=== PATIENT | female | born 1940 | race Caucasian/White ===

== ENCOUNTER → 2016-08-01 | Outpatient (CLI) | payer MEDICARE ==
--- NOTE | 2016-08-01 12:15 | XR ---
EXAMINATION TYPE: XR chest 2V DATE OF EXAM: 08/01/2016 12:08 PM HISTORY: I48.91 Unspecified atrial fibrillation. REFERENCE: Previous study dated 04/08/2015. FINDINGS: The right shoulder arthroplasties in place. The lungs are clear. Pleural spaces are clear. Heart size is normal. IMPRESSION: NO ACUTE INTRATHORACIC ABNORMALITY.
== END | disposition home or self-care (01) ==
LOC: RADXRMAIN 11:48
PROVIDERS: ATTEND Family Medicine
DX: I48.91 Unspecified atrial fibrillation (principal)
CPT/HCPCS: 71020

== ENCOUNTER → 2016-09-08 | Outpatient (CLI) | payer MEDICARE ==
--- NOTE | 2016-09-14 10:49 | P.ARTDOP ---
Arterial Doppler LOWER EXTREMITY ARTERIAL DOPPLER: DATE OF SERVICE: 09/18/2016 Reason for study: Bilateral thigh claudication. And bilateral toe discoloration Doppler waveforms: Multiphasic throughout except at the digital level. Pulse volume recording: Blunted digital waveforms throughout. Pressure gradients: Only at the toe level. Ankle-brachial indices: Greater than 1 bilaterally. Toe pressures: Not obtainable on the right, 50 on the left Impression: No proximal obstructive process seen. Toe plethysmography and waveforms suggestive of either severe vasospastic phenomenon, severe distal disease, or microembolic phenomenon. Clinical correlation recommended..
== END | disposition home or self-care (01) ==
LOC: RADUSWWP 10:18
PROVIDERS: ATTEND Family Medicine
DX: D47.3 Essential (hemorrhagic) thrombocythemia (principal); I70.213 Atherosclerosis of native arteries of extremities with intermittent claudication, bilateral legs
CPT/HCPCS: 93923

== ENCOUNTER → 2016-10-26 | Outpatient (CLI) | payer MEDICARE ==
--- NOTE | 2016-10-27 09:45 | MM ---
Reason for exam: screening (asymptomatic). Last mammogram was performed 1 year and 1 month ago. History: Patient is postmenopausal. Taking estrogen for 26 years beginning at age 44. Physical Findings: A clinical breast exam by your physician is recommended on an annual basis and results should be correlated with mammographic findings. MG 3D Screening Mammo W/Cad Bilateral CC and MLO view(s) were taken. Prior study comparison: September 23, 2015, bilateral MG screening mammo w CAD. August 05, 2014, left breast MG work up mamm w CAD LT. There are scattered fibroglandular densities. Finding: There are typically benign round calcifications in both breasts. There is a chronic nodularity in the right breast. There is no discrete abnormality. ASSESSMENT: Benign, BI-RAD 2 RECOMMENDATION: Routine screening mammogram of both breasts in 1 year.
== END | disposition home or self-care (01) ==
LOC: RADMAMWWP 13:01
PROVIDERS: ATTEND Family Medicine
DX: Z12.31 Encounter for screening mammogram for malignant neoplasm of breast (principal)
CPT/HCPCS: 77063; G0202

== ENCOUNTER → 2016-12-31 | Outpatient (CLI) | payer MEDICARE ==
--- NOTE | 2017-01-02 00:52 | MR ---
EXAMINATION TYPE: MR lumbar spine wo con DATE OF EXAM: 12/31/2016 COMPARISON: NONE HISTORY: Back pain CONTRAST: 0 mL intravenous Gadavist. TECHNIQUE: Multiplanar, multisequence images of the lumbar spine were acquired. FINDINGS: The lumbar vertebra have normal alignment. There is narrowing of disc spaces throughout the lumbar sp ine and more noticeable at L2-3 and L4-5. There is facet arthropathy and some narrowing of the neural foramina bilaterally at L4-5 and L5-S1. There are small posterior disc herniations at L3-4 L4-5 L5-S 1. There is significant ligamentum flavum thickening at L4-5 on the right side more than the left. Th ere is mild lateral recess stenosis at L4-5. There is no lumbar paraspinal mass. The posterior elemen ts are intact. I see no focal bone destruction. There is no compression fracture. IMPRESSION: 1. No fracture. Multilevel spondylosis. Lateral recess stenosis at L4-5. Neural foraminal bilateral s tenosis at L4-5 and L5-S1. No acute bony abnormality. Relatively small multilevel posterior lumbar di sc herniation.
== END | disposition home or self-care (01) ==
LOC: RADMRIMAIN 12:28
PROVIDERS: ATTEND Family Medicine
DX: M48.06 Spinal stenosis, lumbar region (principal); M99.73 Connective tissue and disc stenosis of intervertebral foramina of lumbar region; M51.16 Intervertebral disc disorders with radiculopathy, lumbar region; M47.26 Other spondylosis with radiculopathy, lumbar region
CPT/HCPCS: 72148

== ENCOUNTER → 2017-08-17 | Outpatient (CLI) | payer MEDICARE ==
[2017-08-17 13:50] LABS: Blood Urea Nitrogen 21 mg/dL (7-17)
--- NOTE | 2017-08-17 15:27 | CT ---
EXAMINATION TYPE: CT brain w con DATE OF EXAM: 08/17/2017 COMPARISON: NONE HISTORY: Dizziness. CT DLP: 1118.04 mGycm Automated exposure control for dose reduction was used. CONTRAST: CT scan of the head is performed with IV Contrast, patient injected with 100 mL of Isovue M300. FINDINGS: There is no abnormal enhancing mass or midline shift identified. There is a prominent cisterna magna. No enhancing mass. No mass effect. Mild to moderate generalized degenerative change with low-attenuation the white matter which is nonsp ecific but most typical remote microvascular ischemia. IMPRESSION: Degenerative and nonspecific white matter changes most typical remote microvascular ischemia. Slightl y greater central component occasionally be associated with normal pressure hydrocephalus. Correlate clinically.
--- NOTE | 2017-08-17 15:41 | CT ---
EXAMINATION TYPE: CT abdomen pelvis w con DATE OF EXAM: 08/17/2017 HISTORY: Left sided abdominal pain. CT DLP: 1315.32mGycm Automated Exposure Control for Dose Reduction was Utilized. CONTRAST: CT scan of the abdomen and pelvis is performed with IV Contrast, patient injected with 100 mL of Isov ue M300. COMPARISON: 12/30/2014. FINDINGS: LUNG BASES: Pleural parenchymal scarring is seen at the left lung base. LIVER/GB: The liver enhances homogeneously other than a 1 cm hepatic cyst on series 7 image 9. No int rahepatic biliary ductal dilatation. Gallbladder surgically absent. Calcification of the mesentery an terolateral to the hepatic parenchyma is unchanged from the prior of 12/30/2014. There is slightly lob ular contour of the inferior margin of the liver such as on series 7 images 30 through 35. PANCREAS: No significant abnormality is seen. No ductal dilatation. SPLEEN: No significant abnormality is seen. No splenomegaly. ADRENALS: No significant abnormality is seen. No nodularity or thickening. KIDNEYS: Kidneys enhance and excrete symmetrically. No hydronephrosis. BOWEL: Appendix is not clearly visualized although there are no right lower quadrant fat stranding ch anges. Terminal ileum is unremarkable without thickening. Moderate amount retained colonic stool is s een although there is no bowel dilatation. Loop of small bowel within the left mid abdomen displays f ocal bowel wall thickening of up to 1 cm on coronal series 9 image 42 colonic diverticulosis of the s igmoid colon without pericolonic fat stranding is noted. UTERUS/ADNEXA: Uterus appears surgically absent or significantly atrophied. LYMPH NODES: No greater than 1cm abdominal or pelvic lymph nodes are appreciated. OSSEOUS STRUCTURES: Mild multilevel degenerative change of the visualized spine is seen area OTHER: Extensive calcific and noncalcific atheromatous plaquing is seen of the abdominal aorta and it s branches. Abdominal aorta is of normal course and caliber. IMPRESSION: 1. Focal bowel wall thickening of a small bowel loop in the left mid abdomen extending into the left lower quadrant suggestive of inflammatory or infectious enteritis. No adjacent fluid collection to farmer ggest abscess. 2. Colonic diverticulosis without evidence of diverticulitis. 3. Slightly lobular contour the inferior hepatic margin. Correlate with serum laboratory values to un derlying hepatocellular disease.
== END | disposition home or self-care (01) ==
LOC: RADCTMAIN 13:10
PROVIDERS: ATTEND Family Medicine
DX: K57.30 Diverticulosis of large intestine without perforation or abscess without bleeding (principal); R90.89 Other abnormal findings on diagnostic imaging of central nervous system; G93.89 Other specified disorders of brain; K63.89 Other specified diseases of intestine; Z86.69 Personal history of other diseases of the nervous system and sense organs
CPT/HCPCS: 82565; 84520; 70460; 74177; 36415; Q9967

== ENCOUNTER → 2019-04-25 | Outpatient (CLI) | payer MEDICARE ==
--- NOTE | 2019-04-25 16:27 | XR ---
EXAMINATION TYPE: XR chest 2V DATE OF EXAM: 04/25/2019 COMPARISON: 08/01/2016 TECHNIQUE: PA and lateral views submitted. HISTORY: Dizziness FINDINGS: The lungs are clear and there is no pneumothorax, pleural effusion, or focal pneumonia. Hypertrophi c change of the spine. Postsurgical change right shoulder. No overt failure. Mild hyperinflation. Lit gical clips in the abdomen. IMPRESSION: 1. No acute process.
--- NOTE | 2019-04-25 16:44 | US ---
EXAMINATION TYPE: US carotid duplex BILAT DATE OF EXAM: 04/25/2019 COMPARISON: Carotid ultrasound December 04, 2015 CLINICAL HISTORY: R42 DIZZiNESS. EXAM MEASUREMENTS: RIGHT: Peak Systolic Velocity (PSV) cm/sec ----- Right CCA: 78.2 ----- Right ICA: 81.0 ----- Right ECA: 75.6 ICA/CCA ratio: 1.03 RIGHT: End Diastole cm/sec ----- Right CCA: 20.5 ----- Right ICA: 27.8 ----- Right ECA: 7.9 LEFT: Peak Systolic Velocity (PSV) cm/sec ----- Left CCA: 74.8 ----- Left ICA: 80.6 ----- Left ECA: 73.4 ICA/CCA ratio: 1.07 LEFT: End Diastole cm/sec ----- Left CCA: 20.6 ----- Left ICA: 28.9 ----- Left ECA: 5.4 VERTEBRALS (direction of flow): Right Vertebral: Antegrade Left Vertebral: Antegrade Rhythm: Normal No significant velocity elevations.Minimal plaque. IMPRESSION: No hemodynamically significant stenosis of either internal carotid artery. No significan t change from prior. Criteria for Assigning % of Stenosis / Diameter reduction (Estimation based on the indirect measurements of the internal carotid artery velocities (ICA PSV). 1. Normal (no stenosis)=ICA PSV < 125 cm/s: ratio < 2.0: ICA EDV<40 cm/s. 2. Less than 50% stenosis=ICA PSV < 125 cm/s: ratio < 2.0: ICA EDV<40 cm/s. 3. 50 to 69% stenosis=ICA PSV of 125 to 230 cm/s: ration 2.0 ? 4.0: ICA EDV 40-100 cm/s. 4. Greater than 70% stenosis to near occlusion= ICA PSV > 230 cm/s: ratio > 4.0: ICA EDV > 100 cm/s. 5. Near occlusion= ICA PSV velocities may be low or undetectable: variable ratio and ICA EDV. 6. Total occlusion=unable to detect flow.
== END | disposition home or self-care (01) ==
LOC: RADUSWWP 15:31
PROVIDERS: ATTEND Family Medicine
DX: R42 Dizziness and giddiness (principal); F17.210 Nicotine dependence, cigarettes, uncomplicated; Z88.1 Allergy status to other antibiotic agents; Z88.2 Allergy status to sulfonamides; Z88.8 Allergy status to other drugs, medicaments and biological substances
CPT/HCPCS: 71046; 93880

== ENCOUNTER → 2019-04-29 | Outpatient (CLI) | payer MEDICARE ==
[2019-04-29 11:42] LABS: African American GFR (CKD) >90 (>60 ml/min/1.73 sqM); Blood Urea Nitrogen 13 mg/dL (7-17); Non-African American GFR(CKD) 86 (>60 ml/min/1.73 sqM)
--- NOTE | 2019-04-29 13:08 | CT ---
EXAMINATION TYPE: CT brain wo/w con DATE OF EXAM: 04/29/2019 COMPARISON: CT brain August 17, 2017. MRI brain November 28, 2015. HISTORY: Episodes of dizziness without injury CT DLP: 2144.6 mGycm Automated exposure control for dose reduction was used. CONTRAST: CT scan of the head is performed without and with IV Contrast, patient injected with 100 mL of Isovue 300. FINDINGS: There is no acute intracranial hemorrhage or midline shift. Diffuse ventricular and sulcal prominence redemonstrated. Marked low attenuation in the deep and periventricular white matter again seen. Post contrast images show no suspicious enhancing intraparenchymal mass. The globes are intact and the vis ualized sinuses are clear. IMPRESSION: [id number] diffuse cerebral atrophy and advanced chronic small vessel ischemic monique ge redemonstrated. No suspicious enhancing masses. No significant change from prior studies.
== END | disposition home or self-care (01) ==
LOC: RADCTMAIN 11:00
PROVIDERS: ATTEND Family Medicine
DX: G31.89 Other specified degenerative diseases of nervous system (principal); I67.82 Cerebral ischemia; Z88.2 Allergy status to sulfonamides; Z88.1 Allergy status to other antibiotic agents; Z88.8 Allergy status to other drugs, medicaments and biological substances
CPT/HCPCS: 82565; 84520; 70470; 36415; Q9967

== ENCOUNTER → 2019-07-31 | Outpatient (CLI) | payer MEDICARE | END | disposition home or self-care (01) | LOC: LABWHC1 08:22 | PROVIDERS: ATTEND Family Medicine | DX: D69.6 Thrombocytopenia, unspecified (principal); M32.9 Systemic lupus erythematosus, unspecified; R60.9 Edema, unspecified | CPT/HCPCS: 36415; 85379 ==

== ENCOUNTER 2020-03-24 08:14 | Day surgery (SDC) | payer MEDICARE ==
[~2020-03-24 08:14] MED LIST: LACTATED RINGERS 1,000 ML IV SCH; LIDOCAINE 1% (10MG/ML) FOR IV START INTRADERMA PRN
[2020-03-24 08:36] VITALS: RESP 16; TEMP 97.1
[2020-03-24] MEDS ORDERED: PROPOFOL 10 MG/ML 20 ML VIAL IV ONE (09:02)
--- NOTE | 2020-03-24 09:04 | P.GSHP ---
History of Present Illness H&P Date: 03/24/20 Chief Complaint: GI bleed Patient here today for colonoscopy. Has had recent rectal bleeding. History of colon polyps in the past. Question hemorrhoids lately. No anticoagulants. Past Medical History Past Medical History: Blood Disorder, GERD/Reflux, Hyperlipidemia, Hypertension, Musculoskeletal Disorder, Osteoarthritis (OA), Thyroid Disorder Additional Past Medical History / Comment(s): hx. elevated platelets, intermittent black stools recently, hx. colon polyp, intermittent dizziness, feels like could pass out-seeing Dr. Kim for, leg swelling & neuropathy History of Any Multi-Drug Resistant Organisms: None Reported Past Surgical History: Appendectomy, Bladder Surgery, Section, Cholecystectomy, Hysterectomy, Joint Replacement, Orthopedic Surgery Additional Past Surgical History / Comment(s): right knee replaced x 2,parathyroidectomy, arthroscopy right shoulder, polyps removed from throat. 04-21-15 rt reverse total shoulder athroplasty, bilateral cataracts removed, C- section 3, total abdominal hysterectomy & BSO Past Anesthesia/Blood Transfusion Reactions: Motion Sickness, Postoperative Nausea & Vomiting (PONV) Additional Past Anesthesia/Blood Transfusion Reaction / Comment(s): only sick once w/anesthesia Smoking Status: Current every day smoker - Past Family History Father History Unknown: Yes Family Medical History: Unable to Obtain Mother History Unknown: Yes Family Medical History: Unable to Obtain Additional Family Medical History / Comment(s): pt. adopted Medications and Allergies Home Medications Medication Instructions Recorded Confirmed Type ALPRAZolam 1 mg PO HS 04/08/14 03/24/20 History Levothyroxine Sodium [Synthroid] 50 mcg PO DAILY 04/08/14 03/24/20 History Omeprazole 20 mg PO HS 04/08/14 03/24/20 History Vitamin B Complex 1 cap PO DAILY 04/13/15 03/24/20 History Estradiol 1 mg PO DAILY 04/21/15 03/24/20 History Aspirin 325 mg PO DAILY 03/18/20 03/24/20 History Cholecalciferol (Vitamin D3) 125 mcg PO DAILY 03/18/20 03/24/20 History [Vitamin D3] Cyanocobalamin [Vitamin B-12] 500 mcg PO DAILY 03/18/20 03/24/20 History Gabapentin [Neurontin] 100 mg PO HS 03/18/20 03/24/20 History Hydroxyurea 1,000 mg PO SUMOFRSA 03/18/20 03/24/20 History Hydroxyurea 500 mg PO TUWETH 03/18/20 03/24/20 History Metoprolol Succinate [Toprol XL] 25 mg PO DAILY 03/18/20 03/24/20 History Metoprolol Succinate [Toprol XL] 50 mg PO HS 03/18/20 03/24/20 History Multivitamins, Thera [Multivitamin 1 tab PO DAILY 03/18/20 03/24/20 History (formulary)] Pyridoxine [Vitamin B-6] 50 mg PO DAILY 03/18/20 03/24/20 History Allergies Allergy/AdvReac Type Severity Reaction Status Date / Time naproxen Allergy Unknown Verified 03/18/20 16:46 Sulfa (Sulfonamide Allergy Rash/Hives Verified 03/18/20 16:46 Antibiotics) Surgical - Exam Vital Signs Temp Pulse Resp BP Pulse Ox 97.1 F L 84 16 141/64 98 03/24/20 08:31 03/24/20 08:31 03/24/20 08:31 03/24/20 08:31 03/24/20 08:31 Physical exam: General: Well-developed, well-nourished HEENT: Normocephalic, sclerae nonicteric Abdomen: Nontender, nondistended Extremities: No edema Neuro: Alert and oriented Assessment and Plan (1) Rectal bleeding Narrative/Plan: Will proceed with colonoscopy Current Visit: Yes Status: Acute Code(s): K62.5 - HEMORRHAGE OF ANUS AND RECTUM SNOMED Code(s): 86679868
--- NOTE | 2020-03-24 09:26 | P.PCN ---
Date of Procedure: 03/24/20 Procedure(s) Performed: PREOPERATIVE DIAGNOSIS: Rectal bleeding POSTOPERATIVE DIAGNOSIS: Mild right-sided colitis, hemorrhoids, polyps in the cecum transverse colon and descending colon PROCEDURE: Colonoscopy with biopsy and snare polypectomy ANESTHESIA: MAC SURGEON: Patrick Casillas M.D. SPECIMENS: Polyps, colitis ENDOSCOPIC PROCEDURE: The patient was placed on the endoscopy table in the left decubitus position. The Olympus colonoscope was inserted into the anus and passed under direct visualization to the base of the cecum. The appendiceal orifice was visualized. From that point the scope was slowly withdrawn inspecting all surfaces carefully. There was mild right sided colitis present. Biopsies were taken. A small polyp was also seen in the cecum and removed using the biopsy forceps. In the transverse colon a small polyp was seen and removed using the snare with cautery technique. In the descending colon a larger polyp was identified and removed using the snare with cautery technique. This measured close to 1 cm in size. Sigmoid and rectum appeared normal. The patient had prominent internal and external hemorrhoids at the anus without any evidence of recent or active bleeding. The patient was taken to the recovery room in stable condition per anesthesia guidelines. RECOMMENDATIONS: Await biopsy results point would anticipate follow-up colonoscopy 3 years.
[2020-03-24 09:48] VITALS: BP 127/80; PULSE 76
== END 2020-03-24 10:13 | disposition home or self-care (01) ==
LOC: ORWHC2ENDO 08:14
PROVIDERS: ATTEND Surgery
DX: D12.4 Benign neoplasm of descending colon (principal); D12.0 Benign neoplasm of cecum; D12.3 Benign neoplasm of transverse colon; K52.9 Noninfective gastroenteritis and colitis, unspecified; K64.8 Other hemorrhoids; K64.4 Residual hemorrhoidal skin tags; Z86.010 Personal history of colon polyps; K21.9 Gastro-esophageal reflux disease without esophagitis; E78.5 Hyperlipidemia, unspecified; I10 Essential (primary) hypertension; M19.90 Unspecified osteoarthritis, unspecified site; E07.9 Disorder of thyroid, unspecified; R42 Dizziness and giddiness; M79.89 Other specified soft tissue disorders; G62.9 Polyneuropathy, unspecified; E89.2 Postprocedural hypoparathyroidism; F17.200 Nicotine dependence, unspecified, uncomplicated; F41.9 Anxiety disorder, unspecified; Z86.2 Personal history of diseases of the blood and blood-forming organs and certain disorders involving the immune mechanism; Z90.49 Acquired absence of other specified parts of digestive tract; Z98.890 Other specified postprocedural states; Z90.710 Acquired absence of both cervix and uterus; Z96.651 Presence of right artificial knee joint; Z87.09 Personal history of other diseases of the respiratory system; Z96.611 Presence of right artificial shoulder joint; Z98.41 Cataract extraction status, right eye; Z98.42 Cataract extraction status, left eye; Z90.722 Acquired absence of ovaries, bilateral; Z90.79 Acquired absence of other genital organ(s); Z87.898 Personal history of other specified conditions; Z91.89 Other specified personal risk factors, not elsewhere classified; Z79.899 Other long term (current) drug therapy; Z79.890 Hormone replacement therapy; Z79.82 Long term (current) use of aspirin; Z88.6 Allergy status to analgesic agent; Z88.2 Allergy status to sulfonamides; Z97.2 Presence of dental prosthetic device (complete) (partial)
CPT/HCPCS: 88305; 45380; 45385; J2704

== ENCOUNTER → 2020-04-07 | Outpatient (CLI) | payer MEDICARE ==
--- NOTE | 2020-04-07 10:32 | MR ---
EXAMINATION TYPE: MR angio head wo/neck wo/w con DATE OF EXAM: 04/07/2020 COMPARISON: Ultrasound carotid artery duplex 04/25/2019 HISTORY: Dizziness CONTRAST: 8.5 mL of gadolinium TECHNIQUE: Utilizing 3-D [id number] intracranial MRA of the [place] of [place] and neck was performed. FINDINGS: The vertebrobasilar and carotid systems are patent. There is no sizable aneurysm or vascular malform ation. Anterior cerebral, middle cerebral, and posterior cerebral arteries are patent. Assessment of the neck is limited due to motion artifact. Grossly the carotid arteries are symmetric in size and carotid bifurcations demonstrate no diagnostic evidence of significant hemodynamic stenos is. Due to motion artifact cannot exclude mild atherosclerotic changes. Vertebral arteries are symmet vasyl in size as visualized. IMPRESSION: 1. No evidence of vascular malformation or sizable aneurysm. 2. There is no significant hemodynamic stenosis involving the carotid bifurcations.
== END | disposition home or self-care (01) ==
LOC: RADMRIMAIN 09:03
PROVIDERS: ATTEND Psychiatry & Neurology Neurology
DX: I63.9 Cerebral infarction, unspecified (principal); R42 Dizziness and giddiness
CPT/HCPCS: 70544; 70549; A9585

== ENCOUNTER → 2020-04-28 | Outpatient (CLI) | payer MEDICARE ==
--- NOTE | 2020-04-29 09:45 | MM ---
Reason for exam: screening (asymptomatic). Last mammogram was performed 3 years and 6 months ago. History: Patient is postmenopausal. Taking estrogen for 26 years beginning at age 44. Physical Findings: A clinical breast exam by your physician is recommended on an annual basis and results should be correlated with mammographic findings. MG 3D Screening Mammo W/Cad Bilateral CC and MLO view(s) were taken. Prior study comparison: October 26, 2016, bilateral MG 3d screening mammo w/cad. September 23, 2015, bilateral MG screening mammo w CAD. There are scattered fibroglandular densities. There are benign appearing round, linear calcifications bilaterally. There is chronic nodularity in the right breasst. There is no discrete abnormality. ASSESSMENT: Benign, BI-RAD 2 RECOMMENDATION: Routine screening mammogram of both breasts in 1 year.
== END | disposition home or self-care (01) ==
LOC: RADMAMWWP 09:20
PROVIDERS: ATTEND Family Medicine
DX: Z12.31 Encounter for screening mammogram for malignant neoplasm of breast (principal)
CPT/HCPCS: 77063; 77067

== ENCOUNTER 2021-02-24 13:40 | Inpatient (IN) | payer MEDICARE ==
--- NOTE | 2021-02-24 16:21 | XR ---
EXAMINATION TYPE: XR chest 2V DATE OF EXAM: 02/24/2021 COMPARISON: 04/25/2019 HISTORY: Shortness of breath TECHNIQUE: Frontal and lateral views of the chest are obtained. FINDINGS: Scattered senescent parenchymal changes noted. Hyperinflation compatible with COPD. Moderate right-sided opacity felt to reflect underlying pleural effusion with atelectasis, infiltrate and/or mass. The left lung is clear. Heart size is stable. Mediastinal structures are stable and grossly unremarkable. No evidence for hilar prominence. Degenerative changes dorsal spine. Right proximal humeral prosthesis. IMPRESSION: 1. Moderate right-sided opacity felt to reflect underlying pleural effusion with atelectasis, infiltr ate and/or mass.
[2021-02-24 16:36] LABS: ALT 20 U/L (4-34); AST 28 U/L (14-36); African American GFR (CKD) >90 (>60 ml/min/1.73 sqM); Albumin 3.4 g/dL (3.5-5.0); Alkaline Phosphatase 87 U/L (38-126); Anion Gap 8 mmol/L; Blood Urea Nitrogen 13 mg/dL (7-17); Calcium 8.8 mg/dL (8.4-10.2); Carbon Dioxide 23 mmol/L (22-30); Chloride 100 mmol/L (98-107); Glucose 84 mg/dL (74-99); Magnesium 1.4 mg/dL (1.6-2.3); Non-African American GFR(CKD) >90 (>60 ml/min/1.73 sqM); Potassium 4.4 mmol/L (3.5-5.1); Sodium 131 mmol/L (137-145); Total Bilirubin 0.3 mg/dL (0.2-1.3); Total Protein 6.9 g/dL (6.3-8.2)
--- NOTE | 2021-02-24 16:49 | ED ---
General Adult HPI <Philip Trevino - Last Filed: 02/24/21 19:57> - General Source: patient Mode of arrival: wheelchair Limitations: no limitations <Yolie Baker - Last Filed: 02/24/21 20:28> - General Chief complaint: Shortness of Breath Stated complaint: possible blood clot in leg, SOB Time Seen by Provider: 02/24/21 15:04 - History of Present Illness Initial comments: 81 year-old female patient presents to the emergency department for evaluation of right calf pain and swelling. States she started to feel short of breath today, especially with activity. States she feels like she cannot take a deep enough breath. She denies any chest pain, cough, or congestion. Denies fever or chills. Denies history of blood clot or recent long car rides. No recent diagnosis of cancer. Patient denies any recent rash, cough, abdominal pain, nausea, vomiting, diarrhea, constipation, back pain, numbness, tingling, dizziness, hematuria, dysuria, urinary urgency, urinary frequency, headache, visual changes, or any other complaints. (Yolie Baker) - Related Data Home Medications Medication Instructions Recorded Confirmed Levothyroxine Sodium [Synthroid] 50 mcg PO DAILY 04/08/14 02/24/21 Omeprazole 20 mg PO HS 04/08/14 02/24/21 Vitamin B Complex 1 cap PO DAILY 04/13/15 02/24/21 Estradiol 1 mg PO DAILY 04/21/15 02/24/21 Gabapentin [Neurontin] 100 mg PO HS 03/18/20 02/24/21 Hydroxyurea 500 mg PO HS 03/18/20 02/24/21 Hydroxyurea 500 mg PO MOTUWE@0700 03/18/20 02/24/21 Metoprolol Succinate [Toprol XL] 25 mg PO DAILY 03/18/20 02/24/21 Metoprolol Succinate [Toprol XL] 50 mg PO HS 03/18/20 02/24/21 ALPRAZolam [Xanax] 1 mg PO HS 02/24/21 02/24/21 Escitalopram [Lexapro] 10 mg PO DAILY 02/24/21 02/24/21 Multivit-Min/Iron/Folic/Lutein 1 tab PO DAILY 02/24/21 02/24/21 [Centrum Silver Women Tablet] Allergies Allergy/AdvReac Type Severity Reaction Status Date / Time naproxen Allergy Unknown Verified 02/24/21 16:58 Sulfa (Sulfonamide Allergy Rash/Hives Verified 02/24/21 16:58 Antibiotics) Review of Systems ROS Other: All systems not noted in ROS Statement are negative. <Philip Trevino - Last Filed: 02/24/21 19:57> ROS Other: All systems not noted in ROS Statement are negative. <Yolie Baker - Last Filed: 02/24/21 20:28> ROS Statement: Those systems with pertinent positive or pertinent negative responses have been documented in the HPI. Past Medical History Past Medical History: Blood Disorder, GERD/Reflux, Hyperlipidemia, Hypertension, Musculoskeletal Disorder, Osteoarthritis (OA), Thyroid Disorder Additional Past Medical History / Comment(s): seeing Dr Gonzáles for elevated platelets, rt rotator cuff arthropathy, pt stated has'nt had a good appetite nad wt down 30 pounds in a year. History of Any Multi-Drug Resistant Organisms: None Reported Past Surgical History: Appendectomy, Bladder Surgery, Section, Cholecystectomy, Hysterectomy, Joint Replacement, Orthopedic Surgery Additional Past Surgical History / Comment(s): right knee replaced x 2,parathyroidectomy,cataract surg., arthroscopy right shoulder, polyps removed from throat. 04-21-15 rt reverse total shoulder athroplsty, bilateral cataract surgery, appendectomy, 3, total abdominal hysterectomy and bilateral salpingo-oophorectomy. Past Anesthesia/Blood Transfusion Reactions: Motion Sickness, Postoperative Nausea & Vomiting (PONV) Additional Past Anesthesia/Blood Transfusion Reaction / Comment(s): only sick once w/anesthesia Past Psychological History: Anxiety Smoking Status: Never smoker Past Alcohol Use History: None Reported Past Drug Use History: None Reported - Past Family History Father History Unknown: Yes Family Medical History: Unable to Obtain Mother History Unknown: Yes Family Medical History: Unable to Obtain <Yolie Baker - Last Filed: 02/24/21 20:28> General Exam Limitations: no limitations General appearance: alert, in no apparent distress, other (This is a well- developed, well-nourished elderly female patient in no acute distress.) Eye exam: Present: normal appearance, PERRL, EOMI. Absent: scleral icterus, conjunctival injection, periorbital swelling ENT exam: Present: normal exam, normal oropharynx, mucous membranes moist Respiratory exam: Present: normal lung sounds bilaterally. Absent: respiratory distress, wheezes, rales, rhonchi, stridor Cardiovascular Exam: Present: regular rate, normal rhythm, normal heart sounds. Absent: systolic murmur, diastolic murmur, rubs, gallop, clicks GI/Abdominal exam: Present: soft, normal bowel sounds. Absent: distended, tenderness, guarding, rebound, rigid Neurological exam: Present: alert, oriented X3, CN II-XII intact Psychiatric exam: Present: normal affect, normal mood Skin exam: Present: warm, dry, intact, normal color. Absent: rash <Yolie Baker - Last Filed: 02/24/21 20:28> Course <Philip Trevino - Last Filed: 02/24/21 19:57> Vital Signs 02/24/21 02/24/21 13:51 17:45 Temperature 99.1 F Pulse Rate 96 76 Respiratory 20 18 Rate Blood Pressure 138/78 147/74 O2 Sat by Pulse 95 98 Oximetry - Reevaluation(s) Reevaluation #1: 02/24/21 19:57 And P supervision: I did personally evaluate the patient and did a [id number] evaluation she presents with complaints of swollen leg and concern for DVT also shortness of breath she does have diminished breath sounds on the right imaging revealed evidence of a large right pleural effusion. Previous x-rays are clear. She will be admitted. I do agree with the assessment and plan (Philip Trevino) EKG Findings - EKG Comments: EKG Findings:: EKG obtained at 1556 shows normal sinus rhythm with a ventricular rate of 68, WI interval 154, QRS duration 74, QT 370, QTC 393. No evidence of ST elevation or depression. <Yolie Baker - Last Filed: 02/24/21 20:28> Medical Decision Making - Lab Data Result diagrams: 02/24/21 15:58 02/24/21 15:58 <Philip Trevino - Last Filed: 02/24/21 19:57> - Lab Data Result diagrams: 02/24/21 15:58 02/24/21 15:58 - Radiology Data Radiology results: report reviewed, image reviewed <Yolie Baker - Last Filed: 02/24/21 20:28> - Medical Decision Making 81-year-old female patient presented to the emergency department for evaluation of shortness of breath and right calf pain. Physical examination did reveal mild nonpitting edema to the right leg. Some right calf tenderness. Labs reviewed and did reveal elevated d-dimer at 31. Did perform CT chest angiography which showed a large right pleural effusion. Right leg ultrasound was negative for DVT. These are new findings with this patient's initial be admitted to the hospital with pulmonary consult. I did discuss findings and results with her. She is agreeable to the plan. My attending is Dr. Trevino. (Yolie Baekr) - Lab Data Lab Results 02/24/21 02/24/21 02/24/21 Range/Units 15:58 15:58 15:58 WBC 10.6 (3.8-10.6) k/uL RBC 3.89 (3.80-5.40) m/uL Hgb 14.5 (11.4-16.0) gm/dL Hct 45.8 (34.0-46.0) % MCV 117.5 H (80.0-100.0) fL MCH 37.2 H (25.0-35.0) pg MCHC 31.6 (31.0-37.0) g/dL RDW 15.9 H (11.5-15.5) % Plt Count 431 (150-450) k/uL MPV 8.4 Neutrophils % 74 % Lymphocytes % 17 % Monocytes % 7 % Eosinophils % 0 % Basophils % 1 % Neutrophils # 7.8 H (1.3-7.7) k/uL Lymphocytes # 1.8 (1.0-4.8) k/uL Monocytes # 0.8 (0-1.0) k/uL Eosinophils # 0.0 (0-0.7) k/uL Basophils # 0.1 (0-0.2) k/uL Macrocytosis Marked A PT 10.2 (9.0-12.0) sec INR 0.9 (<1.2) APTT 21.5 L (22.0-30.0) sec D-Dimer 31.58 H (<0.60) mg/L FEU Sodium 131 L (137-145) mmol/L Potassium 4.4 (3.5-5.1) mmol/L Chloride 100 (98-107) mmol/L Carbon Dioxide 23 (22-30) mmol/L Anion Gap 8 mmol/L BUN 13 (7-17) mg/dL Creatinine 0.51 L (0.52-1.04) mg/dL Est GFR (CKD-EPI)AfAm >90 (>60 ml/min/1.73 sqM) Est GFR (CKD-EPI)NonAf >90 (>60 ml/min/1.73 sqM) Glucose 84 (74-99) mg/dL Plasma Lactic Acid Richard (0.7-2.0) mmol/L Calcium 8.8 (8.4-10.2) mg/dL Magnesium 1.4 L (1.6-2.3) mg/dL Total Bilirubin 0.3 (0.2-1.3) mg/dL AST 28 (14-36) U/L ALT 20 (4-34) U/L Alkaline Phosphatase 87 (38-126) U/L Troponin I (0.000-0.034) ng/mL Total Protein 6.9 (6.3-8.2) g/dL Albumin 3.4 L (3.5-5.0) g/dL Coronavirus (PCR) (Not Detectd) 02/24/21 02/24/21 02/24/21 Range/Units 15:58 15:58 17:15 WBC (3.8-10.6) k/uL RBC (3.80-5.40) m/uL Hgb (11.4-16.0) gm/dL Hct (34.0-46.0) % MCV (80.0-100.0) fL MCH (25.0-35.0) pg MCHC (31.0-37.0) g/dL RDW (11.5-15.5) % Plt Count (150-450) k/uL MPV Neutrophils % % Lymphocytes % % Monocytes % % Eosinophils % % Basophils % % Neutrophils # (1.3-7.7) k/uL Lymphocytes # (1.0-4.8) k/uL Monocytes # (0-1.0) k/uL Eosinophils # (0-0.7) k/uL Basophils # (0-0.2) k/uL Macrocytosis PT (9.0-12.0) sec INR (<1.2) APTT (22.0-30.0) sec D-Dimer (<0.60) mg/L FEU Sodium (137-145) mmol/L Potassium (3.5-5.1) mmol/L Chloride (98-107) mmol/L Carbon Dioxide (22-30) mmol/L Anion Gap mmol/L BUN (7-17) mg/dL Creatinine (0.52-1.04) mg/dL Est GFR (CKD-EPI)AfAm (>60 ml/min/1.73 sqM) Est GFR (CKD-EPI)NonAf (>60 ml/min/1.73 sqM) Glucose (74-99) mg/dL Plasma Lactic Acid Richard 1.8 (0.7-2.0) mmol/L Calcium (8.4-10.2) mg/dL Magnesium (1.6-2.3) mg/dL Total Bilirubin (0.2-1.3) mg/dL AST (14-36) U/L ALT (4-34) U/L Alkaline Phosphatase (38-126) U/L Troponin I <0.012 (0.000-0.034) ng/mL Total Protein (6.3-8.2) g/dL Albumin (3.5-5.0) g/dL Coronavirus (PCR) Not Detected (Not Detectd) - Radiology Data CT chest angiography for pulmonary embolism was obtained. Report is reviewed in its entirety. Impression by Dr. Bernard shows no evidence of pulmonary embolism. Large right pleural effusion with some atelectasis in the right lung. Pulmonary abnormalities appear new compared to old exam. No evidence of a pulmonary mass. Venous Doppler duplex of the right lower extremity was obtained. Report is reviewed in its entirety. Impression by Dr. Bernard shows no evidence of deep vein thrombosis in the right leg. Two-view x-ray of the chest is obtained. Report reviewed in its entirety. Impression by Dr. Navarrete shows moderate right-sided opacity felt to reflect underlying pleural effusion with atelectasis, infiltrate, and or mass. (Yolie Baker) Disposition <Philip Trevino - Last Filed: 02/24/21 19:57> Decision to Admit Reason: Admit from EC Decision Date: 02/24/21 Decision Time: 20:15 <Yolie Baker - Last Filed: 02/24/21 20:28> Clinical Impression: Pleural effusion, right Disposition: ADMITTED IP TO THIS HOSP Condition: Serious Referrals: Uriel Yarbrough DO [Primary Care Provider] - 1-2 days
--- NOTE | 2021-02-24 16:51 | US ---
EXAMINATION TYPE: US venous doppler duplex LE RT DATE OF EXAM: 02/24/2021 3:43 PM COMPARISON: NONE CLINICAL HISTORY: Right calf pain; leg swelling. pain in right leg, cramping in calf, patient states leg is always swollen, no h/o dvt, not on thinners SIDE PERFORMED: Right TECHNIQUE: The lower extremity deep venous system is examined utilizing real time linear array sonog dk with graded compression, doppler sonography and color-flow sonography. VESSELS IMAGED: Common Femoral Vein Deep Femoral Vein Greater Saphenous Vein * Femoral Vein Popliteal Vein Small Saphenous Vein * Proximal Calf Veins (* superficial vessels) Right Leg: Negative for DVT IMPRESSION: No evidence of deep vein thrombosis in the right leg.
[2021-02-24 17:11] LABS: Basophils # (A) 0.1 k/uL (0-0.2); Basophils % (A) 1 %; Eosinophils % (A) 0 %; HCT 45.8 % (34.0-46.0); HGB 14.5 gm/dL (11.4-16.0); INR 0.9 (<1.2); Lymphocytes # (A) 1.8 k/uL (1.0-4.8); Lymphocytes % (A) 17 %; MCH 37.2 pg (25.0-35.0); MCHC 31.6 g/dL (31.0-37.0); MCV 117.5 fL (80.0-100.0); Macrocytosis Marked; Mean Platelet Volume 8.4; Monocytes # (A) 0.8 k/uL (0-1.0); Monocytes % (A) 7 %; Neutrophils # (A) 7.8 k/uL (1.3-7.7); Neutrophils % (A) 74 %; Partial Thromboplastin Time 21.5 sec (22.0-30.0); Platelet Count 431 k/uL (150-450); Prothrombin Time 10.2 sec (9.0-12.0); RBC 3.89 m/uL (3.80-5.40); RDW 15.9 % (11.5-15.5); WBC 10.6 k/uL (3.8-10.6)
--- NOTE | 2021-02-24 19:24 | CT ---
EXAMINATION TYPE: CT chest angio for PE DATE OF EXAM: 02/24/2021 COMPARISON: 12/30/2014 HISTORY: Shortness of breath, elevated d-dimer. CT DLP: 349.9 mGycm Automated exposure control for dose reduction was used. CONTRAST: Performed with IV Contrast, patient injected with 100 mL of Isovue 370. There are 3-D post processed images. There is very large right pleural effusion. There is significant atelectasis in the right lung. The left lung is fairly clear. There is no left-sided pleural fluid. There is normal contrast opacification of the pulmonary arteries. There are no filling defects. Thora cic aorta is intact. There is no aneurysm or dissection. The bony thorax is intact. Thoracic spine is intact. Sternum is intact. IMPRESSION: No evidence of pulmonary embolism. Large right pleural effusion with some atelectasis in the right erwin ng. Pulmonary abnormalities appear new compared to old exam. No evidence of a pulmonary mass.
[2021-02-24] MEDS ORDERED: NALOXONE 0.4 MG/ML 1 ML VIAL IV PRN (20:13)
[2021-02-24] MEDS ORDERED: ONDANSETRON 4 MG/2 ML VIAL IVP PRN (20:13)
[2021-02-25] MEDS: guaiFENesin 600 MG TABLET.ER PO SCH ×3 (03:21→20:43)
[2021-02-25] MEDS: BENZONATATE 100 MG CAP PO SCH ×4 (03:22→20:43)
[2021-02-25 08:30] LABS: HCT 43.2 % (34.0-46.0); HGB 13.9 gm/dL (11.4-16.0); MCH 38.3 pg (25.0-35.0); MCHC 32.2 g/dL (31.0-37.0); MCV 118.9 fL (80.0-100.0); Macrocytosis Marked; Mean Platelet Volume 7.5; Platelet Count 398 k/uL (150-450); RBC 3.63 m/uL (3.80-5.40)
[2021-02-25 08:32] LABS: C Reactive Protein 6.9 mg/dL (<1.0)
[2021-02-25 09:16] LABS: Neutrophils % (M) 75 %; Nucleated Red Blood Cells 1 /100 WBC (0-0); Total Cells Counted 200
[2021-02-25 09:17] LABS: Large Platelets Present
[2021-02-25 09:18] LABS: Polychromasia Present
[2021-02-25] MEDS: AZITHROMYCIN 500 MG in SODIUM CHLORIDE 0.9% 250 ML IVPB SCH (09:45)
[2021-02-25 10:06] VITALS: BMI 30.2
--- NOTE | 2021-02-25 10:34 | P.HPIM ---
History of Present Illness H&P Date: 02/25/21 History of present illness 81-year-old female patient of Dr. Yarbrough with past medical history of thrombocytosis followed Dr. Mitchell the past, history of hyperlipidemia hypertension, chronic back pain, GERD, hypothyroidism comes in with shortness of breath associated with right calf swelling. Patient was recently treated for pneumonia/bronchitis with a past 4 weeks and started feeling better on 4 days ago until yesterday when she started getting short of breath with minimal activity. Patient uses a walker to ambulate and is not as active. She was having significant back pain and decided to see her primary care physician yesterday. On his evaluation he noticed patient to be significantly short of breath and has significant swelling involving her right leg. Patient was sent to the ER for evaluation for pulmonary embolism. CT angiogram was performed which was negative for pulmonary embolism but was found to have a large pleural effusion on the right. Venous Doppler was negative for blood clot. Patient has atelectasis associated with pleural effusion but no consolidation was found. Vitals were reviewed patient is afebrile pulse 77 respiratory rate 18 blood pressure 181/78 oxygen saturation 92% on 3 L labs are suggestive of leukocytosis of 10 R MCV 118 platelet 398 CRP is mildly elevated at 6.9 proBNP 167. Pro- calcitonin ordered. Continue DuoNeb as needed. Patient initiated on Rocephin and azithromycin and pulmonary was consulted for possible thoracentesis ROS Constitutional: Denies chills, Denies fever, Denies lethargy, Denies malaise, Denies poor appetite, Denies weakness, Denies weight loss Eyes: denies decreased vision, denies diplopia, denies discharge, denies pain Ears: deny: decreased hearing Ears, nose, mouth and throat: Denies dental pain, Denies headache, Denies nasal discharge, Denies nose pain Cardiovascular: Denies chest pain, Denies decreased exercise tolerance, Denies edema, Denies high blood pressure, Denies irregular heart beat, Denies palpitations, Denies paroxysmal nocturnal dyspnea, Denies rapid heart beat, Denies shortness of breath Respiratory: Denies congestion, Denies cough, endorses cough with sputum, endorses dyspnea, Denies home oxygen, Denies wheezing Gastrointestinal: Denies abdominal pain, Denies change in bowel habits, Denies coffee ground emesis, Denies early satiety, Denies excessive gas, Denies heartb urn, Denies hematemesis, Denies hematochezia, Denies loss of appetite, Denies nausea, Denies vomiting Genitourinary: Denies dysuria, Denies flank pain, Denies kidney stones, Denies menorrhagia, Denies urgency, Denies urinary frequency Musculoskeletal: Endorses gait dysfunction, endorses limitation of motion, Denies morning stiffness, Denies muscle cramps endorses back pain, uses the walker at baseline Integumentary: Denies rash, Denies wounds, Denies brittle nails, Denies change in hair/nails, Denies darkening of skin Neurological: Denies balance difficulties, Denies change in speech, Denies d ouble vision, Denies gait dysfunction, Denies loss of vision, Denies motor disturbance, Denies numbness, Denies paralysis, Denies paresthesias, Denies seizures Psychiatric: Denies anxiety, Denies depression Endocrine: Denies excessive sweating, Denies excessive thirst, Denies high blood sugars, Denies palpitations Hematologic/Lymphatic: Denies easy bruising, Denies lymphadenopathy Social history Patient is independent, uses cane and walker to mobilize. She's smoked or whole life and has recently cut down to half a pack a day but used to smoke 1 pack a day. Denies alcohol use denies illicit marijuana use Family history Patient is adopted but does not at mother had stroke and lived up to 94. Does not know her father. She has had brothers and sisters with no significant medical problem Physical exam - Constitutional General appearance: cooperative, no acute distress, obese - EENT Eyes: anicteric sclerae, PERRLA, normal appearance ENT: hearing grossly normal - Neck Neck: no lymphadenopathy, normal ROM, no other, no rigidity, no stridor, no thyromegaly - Respiratory Respiratory: bilateral: Decreased air entry on the right, dull on percussion on the right, no crackles no wheezing - Cardiovascular Rhythm: regular Heart sounds: normal: S1, S2 Abnormal Heart Sounds: no systolic murmur, no diastolic murmur, no rub, no S3 Gallop, no S4 Gallop, no click, no other - Gastrointestinal General gastrointestinal: normal bowel sounds, soft - Integumentary Integumentary: no rash - Neurologic Neurologic: CNII-XII intact - Musculoskeletal Musculoskeletal: gait normal, strength equal bilaterally - Psychiatric Psychiatric: A&O x's 3, appropriate affect Assessment and plan large pleural effusion on the right secondary to community-acquired pneumonia. - Pro-calcitonin ordered Rocephin 1 g every 24 hours with azithromycin 500 IV daily - Sputum culture - Mucinex 1200 mg twice a day - Continue neb as needed for shortness of breath - Pulmonary consulted for possible thoracentesis Thrombocytosis - Follows primary care and associate director financial aid Dr. Mitchell - Continue home dose of hydroxyurea 500 by mouth daily on Monday and Monday and 500 mg at bedtime - Platelet normal Hypertension - Continue metoprolol 25 daily and 50 at bedtime Hyperlipidemia - Diet controlled Anxiety and depression - Xanax 1 mg at bedtime - Lexapro 10 mg daily Chronic back pain secondary to degenerative disc disease - Continue her gabapentin 100 mg daily at bedtime Hypothyroidism - Continue Synthyroid of 50 g by mouth daily GERD - Omeprazole 20 mg by mouth daily DVT prophylaxis Heparin every 12 subcu CODE STATUS full code Disposition patient need 1-2 inpatient hospitalization for stabilization More than 30 minutes was spent making assessment and plan and constipation Past Medical History Past Medical History: Blood Disorder, GERD/Reflux, Hyperlipidemia, Hypertension, Musculoskeletal Disorder, Osteoarthritis (OA), Thyroid Disorder Additional Past Medical History / Comment(s): seeing Dr Gonzáles for elevated platelets, rt rotator cuff arthropathy, pt stated has'nt had a good appetite nad wt down 30 pounds in a year. History of Any Multi-Drug Resistant Organisms: None Reported Past Surgical History: Appendectomy, Bladder Surgery, Section, Cholecystectomy, Hysterectomy, Joint Replacement, Orthopedic Surgery Additional Past Surgical History / Comment(s): right knee replaced x 2,parathyroidectomy,cataract surg., arthroscopy right shoulder, polyps removed from throat. 04-21-15 rt reverse total shoulder athroplsty, bilateral cataract surgery, appendectomy, 3, total abdominal hysterectomy and bilateral salpingo-oophorectomy. Past Anesthesia/Blood Transfusion Reactions: Motion Sickness, Postoperative Nausea & Vomiting (PONV) Additional Past Anesthesia/Blood Transfusion Reaction / Comment(s): only sick once w/anesthesia Past Psychological History: Anxiety Additional Psychological History / Comment(s): has smoked for 50 yrs. Smoking Status: Never smoker Past Alcohol Use History: None Reported Past Drug Use History: None Reported - Past Family History Father History Unknown: Yes Family Medical History: Unable to Obtain Mother History Unknown: Yes Family Medical History: Unable to Obtain Medications and Allergies Home Medications Medication Instructions Recorded Confirmed Type Levothyroxine Sodium [Synthroid] 50 mcg PO DAILY 04/08/14 02/24/21 History Omeprazole 20 mg PO HS 04/08/14 02/24/21 History Vitamin B Complex 1 cap PO DAILY 04/13/15 02/24/21 History Estradiol 1 mg PO DAILY 04/21/15 02/24/21 History Gabapentin [Neurontin] 100 mg PO HS 03/18/20 02/24/21 History Hydroxyurea 500 mg PO HS 03/18/20 02/24/21 History Hydroxyurea 500 mg PO MOTUWE@0700 03/18/20 02/24/21 History Metoprolol Succinate [Toprol XL] 25 mg PO DAILY 03/18/20 02/24/21 History Metoprolol Succinate [Toprol XL] 50 mg PO HS 03/18/20 02/24/21 History ALPRAZolam [Xanax] 1 mg PO HS 02/24/21 02/24/21 History Escitalopram [Lexapro] 10 mg PO DAILY 02/24/21 02/24/21 History Multivit-Min/Iron/Folic/Lutein 1 tab PO DAILY 02/24/21 02/24/21 History [Centrum Silver Women Tablet] Allergies Allergy/AdvReac Type Severity Reaction Status Date / Time naproxen Allergy Unknown Verified 02/24/21 16:58 Sulfa (Sulfonamide Allergy Rash/Hives Verified 02/24/21 16:58 Antibiotics) Physical Exam Vitals: Vital Signs Temp Pulse Pulse Resp BP BP BP 02/25/21 06:59 98 F 77 18 181/78 02/25/21 02:38 97.9 F 100 16 151/84 02/24/21 21:57 98.0 F 92 19 175/92 02/24/21 17:45 76 18 147/74 02/24/21 13:51 99.1 F 96 20 138/78 Pulse Ox 02/25/21 06:59 92 L 02/25/21 02:38 94 L 02/24/21 21:57 94 L 02/24/21 17:45 98 02/24/21 13:51 95 Intake and Output 02/24/21 02/25/21 02/25/21 22:59 06:59 14:59 Intake Total 240 Balance 240 Intake: Oral 240 Other: Weight 79.832 kg Results CBC & Chem 7: 02/25/21 07:55 02/24/21 15:58 Labs: Abnormal Lab Results - Last 24 Hours (Table) 02/24/21 02/24/21 02/24/21 Range/Units 15:58 15:58 15:58 MCV 117.5 H (80.0-100.0) fL MCH 37.2 H (25.0-35.0) pg RDW 15.9 H (11.5-15.5) % Neutrophils # 7.8 H (1.3-7.7) k/uL Macrocytosis Marked A APTT 21.5 L (22.0-30.0) sec D-Dimer 31.58 H (<0.60) mg/L FEU Sodium 131 L (137-145) mmol/L Creatinine 0.51 L (0.52-1.04) mg/dL Magnesium 1.4 L (1.6-2.3) mg/dL Albumin 3.4 L (3.5-5.0) g/dL Thrombosis Risk Factor Assmnt - Choose All That Apply Any of the Below Risk Factors Present?: No Other Risk Factors: No Each Risk Factor Represents 3 Points: Age 75 years or older Other congenital or acquired thrombophilia - If yes, enter type in comment: Yes Thrombosis Risk Factor Assessment Total Risk Factor Score: 3 Thrombosis Risk Factor Assessment Level: Very Low Risk
[2021-02-25] MEDS: ESCITALOPRAM 10 MG TAB PO SCH (11:15)
[2021-02-25] MEDS: METOPROLOL SUCCINATE (ER) 25 MG TAB.ER.24H PO SCH (11:15)
--- NOTE | 2021-02-25 14:45 | P.CNPUL ---
History of Present Illness Consult date: 02/25/21 Requesting physician: Chava Cornell Reason for consult: dyspnea, abnormal CXR/CT Chief complaint: Shortness of breath, cough, chest History of present illness: This is a very pleasant 81-year-old female patient who follows with Dr. Yarbrough as her primary care provider. She has a history of hypertension, hyperlipidemia, gastroesophageal reflux disease, hypothyroidism, chronic back pain. She has also has a history of thrombocytosis. She also has a 60+ year pack per day smoking history. She has been having ongoing issues with shortness of breath, cough and congestion for approximate 4 weeks now. She has been treated with several rounds of antibiotics without much improvement. She p resented here to the emergency room yesterday with continued shortness of breath cough and congestion. Chest x-ray showed a moderate right-sided opacity felt to reflect underlying pleural effusion with atelectasis. CT angiogram ruled out pulmonary embolism. There is again noted large right pleural effusion with some atelectasis in the right lung. No evidence of pulmonary mass. White count 10. 0. Hemoglobin 13.9. D-dimer 31.5. Sodium 131. Potassium 4.4. Creatinine 0.51. Jensen virus by PCR not detected. Pro-calcitonin pending. She's been initiated on ceftriaxone and azithromycin. She is seen today in consultation on the regular medical floor. She is sitting up in a chair at the bedside. Awake and alert in no acute distress. She denies any worsening shortness of breath. She has a dry nonproductive cough. Maintaining O2 saturations in the 90s on 3 L/m per nasal cannula. Review of Systems REVIEW OF SYSTEMS: CONSTITUTIONAL: Denies any recent significant weight loss or weight gain. EYES: Denies change in vision. EARS, NOSE, MOUTH, THROAT: Denies headaches, denies sore throat. CARDIOVASCULAR: Denies chest pain, palpitations or syncopal episodes. RESPIRATORY: Positive for shortness of breath, cough, congestion no hemoptysis. GASTROINTESTINAL: Denies change in appetite, denies abdominal pain GENITOURINARY: Denies hematuria, denies infections. MUSKULOSKELETAL: Denies pain, denies swelling. INTEGUMENTARY: Denies rash, denies eczema. NEUROLOGICAL: Denies recent memory loss, no recent seizure activity. PSYCHIATRIC: Denies anxiety, denies depression. HEMATOLOGIC/LYMPHATIC: Denies anemia, denies enlarged lymph nodes. Past Medical History Past Medical History: Blood Disorder, GERD/Reflux, Hyperlipidemia, Hypertension, Musculoskeletal Disorder, Osteoarthritis (OA), Thyroid Disorder Additional Past Medical History / Comment(s): seeing Dr Gonzáles for elevated platelets, rt rotator cuff arthropathy, pt stated has'nt had a good appetite nad wt down 30 pounds in a year. History of Any Multi-Drug Resistant Organisms: None Reported Past Surgical History: Appendectomy, Bladder Surgery, Section, Cholecystectomy, Hysterectomy, Joint Replacement, Orthopedic Surgery Additional Past Surgical History / Comment(s): right knee replaced x 2,parathyroidectomy,cataract surg., arthroscopy right shoulder, polyps removed from throat. 04-21-15 rt reverse total shoulder athroplsty, bilateral cataract s urgery, appendectomy, 3, total abdominal hysterectomy and bilateral salpingo-oophorectomy. Past Anesthesia/Blood Transfusion Reactions: Motion Sickness, Postoperative Nausea & Vomiting (PONV) Additional Past Anesthesia/Blood Transfusion Reaction / Comment(s): only sick once w/anesthesia Past Psychological History: Anxiety Additional Psychological History / Comment(s): has smoked for 50 yrs. Smoking Status: Never smoker Past Alcohol Use History: None Reported Past Drug Use History: None Reported - Past Family History Father History Unknown: Yes Family Medical History: Unable to Obtain Mother History Unknown: Yes Family Medical History: Unable to Obtain Medications and Allergies Home Medications Medication Instructions Recorded Confirmed Type Levothyroxine Sodium [Synthroid] 50 mcg PO DAILY 04/08/14 02/24/21 History Omeprazole 20 mg PO HS 04/08/14 02/24/21 History Vitamin B Complex 1 cap PO DAILY 04/13/15 02/24/21 History Estradiol 1 mg PO DAILY 04/21/15 02/24/21 History Gabapentin [Neurontin] 100 mg PO HS 03/18/20 02/24/21 History Hydroxyurea 500 mg PO HS 03/18/20 02/24/21 History Hydroxyurea 500 mg PO MOTUWE@0700 03/18/20 02/24/21 History Metoprolol Succinate [Toprol XL] 25 mg PO DAILY 03/18/20 02/24/21 History Metoprolol Succinate [Toprol XL] 50 mg PO HS 03/18/20 02/24/21 History ALPRAZolam [Xanax] 1 mg PO HS 02/24/21 02/24/21 History Escitalopram [Lexapro] 10 mg PO DAILY 02/24/21 02/24/21 History Multivit-Min/Iron/Folic/Lutein 1 tab PO DAILY 02/24/21 02/24/21 History [Centrum Silver Women Tablet] Allergies Allergy/AdvReac Type Severity Reaction Status Date / Time naproxen Allergy Unknown Verified 02/24/21 16:58 Sulfa (Sulfonamide Allergy Rash/Hives Verified 02/24/21 16:58 Antibiotics) Physical Exam Vitals: Vital Signs Temp Pulse Pulse Resp BP BP BP 02/25/21 14:17 98.3 F 57 L 18 134/65 02/25/21 06:59 98 F 77 18 181/78 02/25/21 02:38 97.9 F 100 16 151/84 02/24/21 21:57 98.0 F 92 19 175/92 02/24/21 17:45 76 18 147/74 Pulse Ox 02/25/21 14:17 79 L 02/25/21 06:59 92 L 02/25/21 02:38 94 L 02/24/21 21:57 94 L 02/24/21 17:45 98 Intake and Output 02/24/21 02/25/21 02/25/21 22:59 06:59 14:59 Intake Total 240 240 Balance 240 240 Intake: Oral 240 240 Other: # Bowel Movements 2 Weight 79.832 kg 79.832 kg GENERAL EXAM: Alert, pleasant 81-year-old female patient on 3 L nasal cannula, comfortable in no apparent distress. HEAD: Normocephalic. EYES: Normal reaction of pupils, equal size. NOSE: Clear with pink turbinates. THROAT: No erythema or exudates. NECK: No masses, no JVD. CHEST: No chest wall deformity. LUNGS: Equal air entry with crackles, diminished in the right lung base. CVS: S1 and S2 normal with no audible murmur, regular rhythm. ABDOMEN: No hepatosplenomegaly, normal bowel sounds, no guarding or rigidity. SPINE: No scoliosis or deformity SKIN: No rashes CENTRAL NERVOUS SYSTEM: No focal deficits, tone is normal in all 4 extremities. EXTREMITIES: There is no peripheral edema. No clubbing, no cyanosis. Periphera l pulses are intact. Results - Laboratory Findings CBC and BMP: 02/25/21 07:55 02/24/21 15:58 PT/INR, D-dimer PT 10.2 sec (9.0-12.0) 02/24/21 15:58 INR 0.9 (<1.2) 02/24/21 15:58 D-Dimer 31.58 mg/L FEU (<0.60) H 02/24/21 15:58 Abnormal lab findings: Abnormal Labs 02/24/21 02/24/21 02/24/21 15:58 15:58 15:58 RBC MCV 117.5 H MCH 37.2 H RDW 15.9 H Neutrophils # 7.8 H Nucleated RBCs Macrocytosis Marked A APTT 21.5 L D-Dimer 31.58 H Sodium 131 L Creatinine 0.51 L Magnesium 1.4 L C-Reactive Protein Albumin 3.4 L 02/25/21 02/25/21 07:55 07:55 RBC 3.63 L MCV 118.9 H MCH 38.3 H RDW Neutrophils # Nucleated RBCs 1 H Macrocytosis Marked A APTT D-Dimer Sodium Creatinine Magnesium C-Reactive Protein 6.9 H Albumin - Diagnostic Findings Chest x-ray: image reviewed CT scan - chest: image reviewed Assessment and Plan Assessment: 1 Acute hypoxemic respiratory failure secondary to a large right-sided pleural effusion. Treated for pneumonia in the outpatient setting with several rounds of antibiotics without much improvement. Pro-calcitonin pending. 2 Chronic and ongoing tobacco dependence of greater than 60 years 3 hypertension 4 Hypothyroidism 6 History of anxiety 7 Gastroesophageal reflux disease 8 Thrombocytosis, on hydroxyurea Plan: The patient was seen and evaluated by Dr. Islas Chest x-ray, CAT scans and labs reviewed Pro-calcitonin pending Ultrasound of the right chest to evaluate the effusion Plan for probable right-sided thoracentesis in a.m. Discussed with the patient who is agreeable to the plan We will continue to follow and make further recommendations based on her clinical status I, the cosigning physician, performed a history & physical examination of the patient. Lungs sounds crackles in the right lung base, diminished. Maintaining good O2 saturations in the 90s on 3 L/m per nasal cannula. I discussed the assessment and plan of care with my nurse practitioner, Lisa Ruiz. I attest to the above consultation as dictated by her. Time with Patient: Greater than 30
[2021-02-25 17:55] LABS: Folate, Serum >20.00 ng/mL (4.40-31.00); Vitamin B12 >2000.0 pg/mL (200.0-944.0)
[2021-02-25] MEDS: ALPRAZolam 1 MG TAB PO SCH (20:43)
[2021-02-25] MEDS: GABAPENTIN 100 MG CAP PO SCH (20:43)
[2021-02-25] MEDS: PANTOPRAZOLE 40 MG TABLET PO SCH (20:43)
[2021-02-25] MEDS: HYDROXYUREA 500 MG CAP PO SCH (20:43)
[2021-02-25] MEDS: METOPROLOL SUCCINATE (ER) 50 MG TAB.ER.24H PO SCH (20:44)
[2021-02-26] MEDS: LEVOTHYROXINE 50 MCG TAB PO SCH (06:05)
[2021-02-26] MEDS: guaiFENesin 600 MG TABLET.ER PO SCH ×2 (07:45→21:39)
[2021-02-26] MEDS: BENZONATATE 100 MG CAP PO SCH ×3 (07:45→21:07)
[2021-02-26] MEDS: ESCITALOPRAM 10 MG TAB PO SCH (07:45)
[2021-02-26] MEDS: METOPROLOL SUCCINATE (ER) 25 MG TAB.ER.24H PO SCH (07:45)
[2021-02-26] MEDS: ACETAMINOPHEN TAB 325 MG TAB PO PRN ×2 (07:46→07:52)
[2021-02-26] MEDS: AZITHROMYCIN 500 MG in SODIUM CHLORIDE 0.9% 250 ML IVPB SCH (09:08)
--- NOTE | 2021-02-26 09:26 | US ---
EXAMINATION TYPE: US chest DATE OF EXAM: 02/26/2021 COMPARISON: NONE CLINICAL HISTORY: Right lung effusion. right pleural effusion TECHNIQUE: Targeted ultrasound of the posterior lower right hemithorax EXAM MEASUREMENTS: Right Pleural Effusion pocket size: 6.8 cm - portions appear loculated Right skin surface to fluid distance: 2.7 cm Right side marked for possible thoracentesis outside the dept. Left side NOT marked for possible thoracentesis outside the dept. Pulmonologists are able to review the images in the patient?s EMR. IMPRESSIONS: Partially loculated right pleural effusion
--- NOTE | 2021-02-26 16:36 | P.PN ---
Subjective Progress Note Date: 02/26/21 History of present illness 81-year-old female patient of Dr. Yarbrough with past medical history of thrombocytosis followed Dr. Mitchell the past, history of hyperlipidemia hypertension, chronic back pain, GERD, hypothyroidism comes in with shortness of breath associated with right calf swelling. Patient was recently treated for pneumonia/bronchitis with a past 4 weeks and started feeling better on 4 days ago until yesterday when she started getting short of breath with minimal activity. Patient uses a walker to ambulate and is not as active. She was having significant back pain and decided to see her primary care physician yesterday. On his evaluation he noticed patient to be significantly short of breath and has significant swelling involving her right leg. Patient was sent to the ER for evaluation for pulmonary embolism. CT angiogram was performed which was negative for pulmonary embolism but was found to have a large pleural effusion on the right. Venous Doppler was negative for blood clot. Patient has atelectasis associated with pleural effusion but no consolidation was found. Vitals were reviewed patient is afebrile pulse 77 respiratory rate 18 blood pressure 181/78 oxygen saturation 92% on 3 L labs are suggestive of leukocytosis of 10 R MCV 118 platelet 398 CRP is mildly elevated at 6.9 proBNP 167. Pro- calcitonin ordered. Continue DuoNeb as needed. Patient initiated on Rocephin and azithromycin and pulmonary was consulted for possible thoracentesis 02/26 Patient was evaluated at bedside. Continues to have shortness of breath and cough production with minimal exertion. Plan for thoracentesis today. Ultrasound of the chest was performed that suggested loculated right pleural effusion. Labs reviewed patient has WBC of 10 hemoglobin 13.9 vitamin B12 was more than 2000 and CRP is mildly elevated at 6.9 procalcitonin is normal COVID- 19 was negative ROS Constitutional: Denies chills, Denies fever, Denies lethargy, Denies malaise, Denies poor appetite, Denies weakness, Denies weight loss Eyes: denies decreased vision, denies diplopia, denies discharge, denies pain Ears: deny: decreased hearing Ears, nose, mouth and throat: Denies dental pain, Denies headache, Denies nasal discharge, Denies nose pain Cardiovascular: Denies chest pain, Denies decreased exercise tolerance, Denies edema, Denies high blood pressure, Denies irregular heart beat, Denies palpitations, Denies paroxysmal nocturnal dyspnea, Denies rapid heart beat, Denies shortness of breath Respiratory: Denies congestion, positive for cough, endorses cough with sputum, endorses dyspnea, Denies home oxygen, Denies wheezing Gastrointestinal: Denies abdominal pain, Denies change in bowel habits, Denies coffee ground emesis, Denies early satiety, Denies excessive gas, Denies heartburn, Denies hematemesis, Denies hematochezia, Denies loss of appetite, Denies nausea, Denies vomiting Genitourinary: Denies dysuria, Denies flank pain, Denies kidney stones, Denies menorrhagia, Denies urgency, Denies urinary frequency Musculoskeletal: Endorses gait dysfunction, endorses limitation of motion, Denies morning stiffness, Denies muscle cramps endorses back pain, uses the walker at baseline Integumentary: Denies rash, Denies wounds, Denies brittle nails, Denies change in hair/nails, Denies darkening of skin Neurological: Denies balance difficulties, Denies change in speech, Denies double vision, Denies gait dysfunction, Denies loss of vision, Denies motor disturbance, Denies numbness, Denies paralysis, Denies paresthesias, Denies seizures Psychiatric: Denies anxiety, Denies depression Endocrine: Denies excessive sweating, Denies excessive thirst, Denies high blood sugars, Denies palpitations Hematologic/Lymphatic: Denies easy bruising, Denies lymphadenopathy Physical exam - Constitutional General appearance: cooperative, no acute distress, obese - EENT Eyes: anicteric sclerae, PERRLA, normal appearance ENT: hearing grossly normal - Neck Neck: no lymphadenopathy, normal ROM, no other, no rigidity, no stridor, no thyromegaly - Respiratory Respiratory: bilateral: Decreased air entry on the right, dull on percussion on the right, increased wheezing noted - Cardiovascular Rhythm: regular Heart sounds: normal: S1, S2 Abnormal Heart Sounds: no systolic murmur, no diastolic murmur, no rub, no S3 Gallop, no S4 Gallop, no click, no other - Gastrointestinal General gastrointestinal: normal bowel sounds, soft - Integumentary Integumentary: no rash - Neurologic Neurologic: CNII-XII intact - Musculoskeletal Musculoskeletal: gait normal, strength equal bilaterally - Psychiatric Psychiatric: A&O x's 3, appropriate affect Assessment and plan large pleural effusion on the right secondary to community-acquired pneumonia. - Pro-calcitonin ordered Rocephin 1 g every 24 hours with azithromycin 500 IV daily - Sputum culture - Mucinex 1200 mg twice a day - Continue neb as needed for shortness of breath - Pulmonary consulted thoracentesis tday -Chest ultrasound suggestive right pleural effusion loculated partially Acute bronchitis with prominent wheezing - will start patient on IV Solu-Medrol 60 every 6 - Mucinex 1200 mg p.o. twice daily continue DuoNeb as needed for shortness of breath - Continue Rocephin 1 g every 24 hours Thrombocytosis - Follows primary care and payment poster Dr. Mitchell - Continue home dose of hydroxyurea 500 by mouth daily on Monday and Monday and 500 mg at bedtime - Platelet normal Hypertension - Continue metoprolol 25 daily and 50 at bedtime Hyperlipidemia - Diet controlled Anxiety and depression - Xanax 1 mg at bedtime - Lexapro 10 mg daily Chronic back pain secondary to degenerative disc disease - Continue her gabapentin 100 mg daily at bedtime Hypothyroidism - Continue Synthyroid of 50 g by mouth daily GERD - Omeprazole 20 mg by mouth daily DVT prophylaxis Heparin every 12 subcu CODE STATUS full code Objective - Vital Signs Vital signs: Vital Signs Temp 98.0 F 02/26/21 07:00 Pulse 62 02/26/21 07:00 Resp 16 02/26/21 07:00 BP 144/75 02/26/21 07:00 Pulse Ox 97 02/26/21 07:00 Intake & Output 02/25/21 02/26/21 02/26/21 18:59 06:59 18:59 Intake Total 480 480 Balance 480 480 Weight 79.832 kg Intake: Oral 480 480 Other: # Voids 2 # Bowel Movements 2 - Labs CBC & Chem 7: 02/25/21 07:55 02/24/21 15:58 Labs: Abnormal Lab Results - Last 24 Hours (Table) 02/25/21 Range/Units 07:55 Vitamin B12 >2000.0 H (200.0-944.0) pg/mL
[2021-02-26] MEDS: methylPREDNISolone SOD SUCCI 125 MG/2 ML VIAL IV SCH (17:05)
--- NOTE | 2021-02-26 18:01 | P.PN ---
Subjective Progress Note Date: 02/26/21 Principal diagnosis: Shortness of breath, right pleural effusion This is a very pleasant 81-year-old female patient who follows with Dr. Yarbrough as her primary care provider. She has a history of hypertension, hyperlipidemia, gastroesophageal reflux disease, hypothyroidism, chronic back pain. She has also has a history of thrombocytosis. She also has a 60+ year pack per day smoking history. She has been having ongoing issues with shortness of breath, cough and congestion for approximate 4 weeks now. She has been treated with several rounds of antibiotics without much improvement. She presented here to the emergency room yesterday with continued shortness of breat h cough and congestion. Chest x-ray showed a moderate right-sided opacity felt to reflect underlying pleural effusion with atelectasis. CT angiogram ruled out pulmonary embolism. There is again noted large right pleural effusion with some atelectasis in the right lung. No evidence of pulmonary mass. White count 10.0. Hemoglobin 13.9. D-dimer 31.5. Sodium 131. Potassium 4.4. Creatinine 0.51. Jensen virus by PCR not detected. Pro-calcitonin pending. She's been initiated on ceftriaxone and azithromycin. She is seen today in consultation on the regular medical floor. She is sitting up in a chair at the bedside. Awake and alert in no acute distress. She denies any worsening shortness of breath. She has a dry nonproductive cough. Maintaining O2 saturations in the 90s on 3 L/m per nasal cannula. The patient is seen today 02/26/2021 in follow-up on the regular medical floor. She is currently sitting up in bed. Awake and alert in no acute distress. No worsening shortness of breath, cough or congestion. He continues to maintain good O2 saturations in the mid 90s on 3 L/m per nasal cannula. Been afebrile. Hemodynamically stable. Her sound of the right pleural effusion reveals a pocket of 6.8 cm but portions of which are loculated. She remains on ceftriaxone and azithromycin. She did have a a harsh cough and some wheezing and was started on IV Solu-Medrol. Objective - Vital Signs Vital signs: Vital Signs Temp 98.2 F 02/26/21 15:00 Pulse 66 02/26/21 15:00 Resp 16 02/26/21 15:00 BP 139/76 02/26/21 15:00 Pulse Ox 97 02/26/21 15:00 Intake & Output 02/25/21 02/26/21 02/26/21 18:59 06:59 18:59 Intake Total 480 480 Balance 480 480 Weight 79.832 kg Intake: Oral 480 480 Other: # Voids 2 1 # Bowel Movements 2 1 - Exam GENERAL EXAM: Alert, pleasant 81-year-old female patient on 3 L nasal cannula, comfortable in no apparent distress. HEAD: Normocephalic. EYES: Normal reaction of pupils, equal size. NOSE: Clear with pink turbinates. THROAT: No erythema or exudates. NECK: No masses, no JVD. CHEST: No chest wall deformity. LUNGS: Equal air entry with crackles, diminished in the right lung base. CVS: S1 and S2 normal with no audible murmur, regular rhythm. ABDOMEN: No hepatosplenomegaly, normal bowel sounds, no guarding or rigidity. SPINE: No scoliosis or deformity SKIN: No rashes CENTRAL NERVOUS SYSTEM: No focal deficits, tone is normal in all 4 extremities. EXTREMITIES: There is no peripheral edema. No clubbing, no cyanosis. Peripheral pulses are intact. - Labs CBC & Chem 7: 02/25/21 07:55 02/24/21 15:58 Labs: Abnormal Lab Results - Last 24 Hours (Table) 02/25/21 Range/Units 07:55 Vitamin B12 >2000.0 H (200.0-944.0) pg/mL Assessment and Plan Assessment: 1 Acute hypoxemic respiratory failure secondary to a large right-sided pleural effusion. Treated for pneumonia in the outpatient setting with several rounds of antibiotics without much improvement. Pro-calcitonin 0.06. Antibiotics will be discontinued. Plan will be for interventional radiology to perform a thoracentesis as the right pleural effusion is loculated. 2 Chronic and ongoing tobacco dependence of greater than 60 years 3 Hypertension 4 Hypothyroidism 6 History of anxiety 7 Gastroesophageal reflux disease 8 Thrombocytosis, on hydroxyurea Plan: The patient was seen and evaluated by Dr. Islas Ultrasound of the chest reviewed, fluid is loculated Requesting IR to do the thoracentesis with ultrasound guidance Pro-calcitonin 0.06, discontinue antibiotics Educated regarding the importance of complete smoking cessation We will continue to follow and make further recommendations based on her clinical status I, the cosigning physician, performed a history & physical examination of the patient. Lungs sounds crackles in the right lung base, diminished. Maintaining good O2 saturations in the 90s on 3 L/m per nasal cannula. I discussed the assessment and plan of care with my nurse practitioner, Lisa Ruiz. I attest to the above note as dictated by her.
[2021-02-26] MEDS: METOPROLOL SUCCINATE (ER) 50 MG TAB.ER.24H PO SCH (21:06)
[2021-02-26] MEDS: HYDROXYUREA 500 MG CAP PO SCH (21:07)
[2021-02-26] MEDS: ALPRAZolam 1 MG TAB PO SCH (21:09)
[2021-02-26] MEDS: GABAPENTIN 100 MG CAP PO SCH (21:10)
[2021-02-26] MEDS: PANTOPRAZOLE 40 MG TABLET PO SCH (21:10)
[2021-02-27] MEDS: methylPREDNISolone SOD SUCCI 125 MG/2 ML VIAL IV SCH ×3 (00:13→12:55)
[2021-02-27] MEDS: LEVOTHYROXINE 50 MCG TAB PO SCH (06:21)
[2021-02-27] MEDS: BENZONATATE 100 MG CAP PO SCH ×3 (09:49→21:52)
[2021-02-27] MEDS: MAGNESIUM SULFATE-D5W PMX 1 GM in DEXTROSE/WATER 1 100ML.BAG IVPB SCH ×2 (10:27→12:51)
--- NOTE | 2021-02-27 11:01 | P.PN ---
Subjective Progress Note Date: 02/27/21 History of present illness 81-year-old female patient of Dr. Yarbrough with past medical history of thrombocytosis followed Dr. Mitchell the past, history of hyperlipidemia hypertension, chronic back pain, GERD, hypothyroidism comes in with shortness of breath associated with right calf swelling. Patient was recently treated for pneumonia/bronchitis with a past 4 weeks and started feeling better on 4 days ago until yesterday when she started getting short of breath with minimal activity. Patient uses a walker to ambulate and is not as active. She was having significant back pain and decided to see her primary care physician yesterday. On his evaluation he noticed patient to be significantly short of breath and has significant swelling involving her right leg. Patient was sent to the ER for evaluation for pulmonary embolism. CT angiogram was performed which was negative for pulmonary embolism but was found to have a large pleural effusion on the right. Venous Doppler was negative for blood clot. Patient has atelectasis associated with pleural effusion but no consolidation was found. Vitals were reviewed patient is afebrile pulse 77 respiratory rate 18 blood pressure 181/78 oxygen saturation 92% on 3 L labs are suggestive of leukocytosis of 10 R MCV 118 platelet 398 CRP is mildly elevated at 6.9 proBNP 167. Pro- calcitonin ordered. Continue DuoNeb as needed. Patient initiated on Rocephin and azithromycin and pulmonary was consulted for possible thoracentesis 02/26 Patient was evaluated at bedside. Continues to have shortness of breath and cough production with minimal exertion. Plan for thoracentesis today. Ultrasound of the chest was performed that suggested loculated right pleural effusion. Labs reviewed patient has WBC of 10 hemoglobin 13.9 vitamin B12 was more than 2000 and CRP is mildly elevated at 6.9 procalcitonin is normal COVID- 19 was negative 02/27 patient evaluated at bedside. Dystrophy better than yesterday. Still, endorses shortness of breath and cough on exertion. Patient seen the pulmonary plan for consult for interventional radiology for possible thoracentesis of his ultrasound-guided. We'll discontinue antibiotics is pro-calcitonin is normal. Pleural fluid to be evaluated for infection to rule out parapneumonic effusion. ROS Constitutional: Denies chills, Denies fever, Denies lethargy, Denies malaise, Denies poor appetite, Denies weakness, Denies weight loss Eyes: denies decreased vision, denies diplopia, denies discharge, denies pain Ears: deny: decreased hearing Ears, nose, mouth and throat: Denies dental pain, Denies headache, Denies nasal discharge, Denies nose pain Cardiovascular: Denies chest pain, Denies decreased exercise tolerance, Denies edema, Denies high blood pressure, Denies irregular heart beat, Denies palpitations, Denies paroxysmal nocturnal dyspnea, Denies rapid heart beat, Denies shortness of breath Respiratory: Denies congestion, positive for cough, endorses cough with sputum, endorses dyspnea, Denies home oxygen, Denies wheezing Gastrointestinal: Denies abdominal pain, Denies change in bowel habits, Denies coffee ground emesis, Denies early satiety, Denies excessive gas, Denies heartburn, Denies hematemesis, Denies hematochezia, Denies loss of appetite, Denies nausea, Denies vomiting Genitourinary: Denies dysuria, Denies flank pain, Denies kidney stones, Denies menorrhagia, Denies urgency, Denies urinary frequency Musculoskeletal: Endorses gait dysfunction, endorses limitation of motion, Denies morning stiffness, Denies muscle cramps endorses back pain, uses the walker at baseline Integumentary: Denies rash, Denies wounds, Denies brittle nails, Denies change in hair/nails, Denies darkening of skin Neurological: Denies balance difficulties, Denies change in speech, Denies double vision, Denies gait dysfunction, Denies loss of vision, Denies motor disturbance, Denies numbness, Denies paralysis, Denies paresthesias, Denies seizures Psychiatric: Denies anxiety, Denies depression Endocrine: Denies excessive sweating, Denies excessive thirst, Denies high blood sugars, Denies palpitations Hematologic/Lymphatic: Denies easy bruising, Denies lymphadenopathy Physical exam - Constitutional General appearance: cooperative, no acute distress, obese - EENT Eyes: anicteric sclerae, PERRLA, normal appearance ENT: hearing grossly normal - Neck Neck: no lymphadenopathy, normal ROM, no other, no rigidity, no stridor, no thyromegaly - Respiratory Respiratory: bilateral: Decreased air entry on the right, dull on percussion on the right, increased wheezing noted - Cardiovascular Rhythm: regular Heart sounds: normal: S1, S2 Abnormal Heart Sounds: no systolic murmur, no diastolic murmur, no rub, no S3 Gallop, no S4 Gallop, no click, no other - Gastrointestinal General gastrointestinal: normal bowel sounds, soft - Integumentary Integumentary: no rash - Neurologic Neurologic: CNII-XII intact - Musculoskeletal Musculoskeletal: gait normal, strength equal bilaterally - Psychiatric Psychiatric: A&O x's 3, appropriate affect Assessment and plan large pleural effusion on the right secondary to community-acquired pneumonia. 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 - Continue home dose of hydroxyurea 500 by mouth daily on Monday and Monday and 500 mg at bedtime - Platelet normal Hypertension - Continue metoprolol 25 daily and 50 at bedtime Hyperlipidemia - Diet controlled Anxiety and depression - Xanax 1 mg at bedtime - Lexapro 10 mg daily Chronic back pain secondary to degenerative disc disease - Continue her gabapentin 100 mg daily at bedtime Hypothyroidism - Continue Synthyroid of 50 g by mouth daily GERD - Omeprazole 20 mg by mouth daily DVT prophylaxis Heparin every 12 subcu CODE STATUS full code Objective - Vital Signs Vital signs: Vital Signs Temp 97.5 F L 02/27/21 08:01 Pulse 60 02/27/21 08:01 Resp 18 02/27/21 08:01 BP 147/74 02/27/21 08:01 Pulse Ox 96 02/27/21 08:01 Intake & Output 02/26/21 02/27/21 02/27/21 18:59 06:59 18:59 Other: # Voids 1 1 # Bowel Movements 1 1 - Labs CBC & Chem 7: 02/25/21 07:55 02/24/21 15:58
[2021-02-27] MEDS: ESCITALOPRAM 10 MG TAB PO SCH (12:54)
[2021-02-27] MEDS: guaiFENesin 600 MG TABLET.ER PO SCH ×2 (12:54→21:51)
[2021-02-27] MEDS: METOPROLOL SUCCINATE (ER) 25 MG TAB.ER.24H PO SCH (12:54)
--- NOTE | 2021-02-27 15:15 | P.PN ---
Subjective Progress Note Date: 02/27/21 Principal diagnosis: Shortness of breath, right pleural effusion This is a very pleasant 81-year-old female patient who follows with Dr. Yarbrough as her primary care provider. She has a history of hypertension, hyperlipidemia, gastroesophageal reflux disease, hypothyroidism, chronic back pain. She has also has a history of thrombocytosis. She also has a 60+ year pack per day smoking history. She has been having ongoing issues with shortness of breath, cough and congestion for approximate 4 weeks now. She has been treated with several rounds of antibiotics without much improvement. She presented here to the emergency room yesterday with continued shortness of breat h cough and congestion. Chest x-ray showed a moderate right-sided opacity felt to reflect underlying pleural effusion with atelectasis. CT angiogram ruled out pulmonary embolism. There is again noted large right pleural effusion with some atelectasis in the right lung. No evidence of pulmonary mass. White count 10.0. Hemoglobin 13.9. D-dimer 31.5. Sodium 131. Potassium 4.4. Creatinine 0.51. Jensen virus by PCR not detected. Pro-calcitonin pending. She's been initiated on ceftriaxone and azithromycin. She is seen today in consultation on the regular medical floor. She is sitting up in a chair at the bedside. Awake and alert in no acute distress. She denies any worsening shortness of breath. She has a dry nonproductive cough. Maintaining O2 saturations in the 90s on 3 L/m per nasal cannula. The patient is seen today 02/26/2021 in follow-up on the regular medical floor. She is currently sitting up in bed. Awake and alert in no acute distress. No worsening shortness of breath, cough or congestion. He continues to maintain good O2 saturations in the mid 90s on 3 L/m per nasal cannula. Been afebrile. Hemodynamically stable. Her sound of the right pleural effusion reveals a pocket of 6.8 cm but portions of which are loculated. She remains on ceftriaxone and azithromycin. She did have a a harsh cough and some wheezing and was started on IV Solu-Medrol. The patient is seen today 02/27/2021 in follow-up on the pediatric unit. He is currently sitting up in bed. Awake and alert in no acute distress. She denies any worsening shortness of breath, cough or congestion. Maintaining O2 saturations in the 90s on 3 L/m per nasal cannula. Afebrile. Hemodynamically stable. Awaiting ultrasound-guided thoracentesis today by interventional radiology. She remains on Tessalon Perles, Mucinex, IV Solu-Medrol. Objective - Vital Signs Vital signs: Vital Signs Temp 97.9 F 02/27/21 14:23 Pulse 61 02/27/21 14:23 Resp 18 02/27/21 14:23 BP 146/62 02/27/21 14:23 Pulse Ox 96 02/27/21 14:23 Intake & Output 02/26/21 02/27/21 02/27/21 18:59 06:59 18:59 Other: # Voids 1 1 1 # Bowel Movements 1 1 - Exam GENERAL EXAM: Alert, pleasant 81-year-old female patient on 3 L nasal cannula, comfortable in no apparent distress. HEAD: Normocephalic. EYES: Normal reaction of pupils, equal size. NOSE: Clear with pink turbinates. THROAT: No erythema or exudates. NECK: No masses, no JVD. CHEST: No chest wall deformity. LUNGS: Equal air entry with crackles, diminished in the right lung base. CVS: S1 and S2 normal with no audible murmur, regular rhythm. ABDOMEN: No hepatosplenomegaly, normal bowel sounds, no guarding or rigidity. SPINE: No scoliosis or deformity SKIN: No rashes CENTRAL NERVOUS SYSTEM: No focal deficits, tone is normal in all 4 extremities. EXTREMITIES: There is no peripheral edema. No clubbing, no cyanosis. Peripheral pulses are intact. - Labs CBC & Chem 7: 02/25/21 07:55 02/24/21 15:58 Assessment and Plan Assessment: 1 Acute hypoxemic respiratory failure secondary to a large right-sided pleural effusion. Treated for pneumonia in the outpatient setting with several rounds of antibiotics without much improvement. Pro-calcitonin 0.06. Antibiotics discontinued. Plan will be for interventional radiology to perform a thoracentesis today as the right pleural effusion is loculated. 2 Chronic and ongoing tobacco dependence of greater than 60 years 3 Hypertension 4 Hypothyroidism 5 History of anxiety 6 Gastroesophageal reflux disease 7 Thrombocytosis, on hydroxyurea Plan: The patient was seen and evaluated by Dr. Janel LAYNE to do the thoracentesis with ultrasound guidance today Discontinue IV Solu medrol, initiate prednisone taper We will continue to follow I, the cosigning physician, performed a history & physical examination of the patient. Lungs sounds crackles in the right lung base, diminished. Maintaining good O2 saturations in the 90s on 3 L/m per nasal cannula. I discussed the assessment and plan of care with my nurse practitioner, Lisa Ruiz. I attest to the above note as dictated by her.
--- NOTE | 2021-02-27 15:46 | XR ---
EXAMINATION TYPE: XR chest 1V portable DATE OF EXAM: 02/27/2021 COMPARISON: 02/24/2021 HISTORY: Thoracentesis TECHNIQUE: Single view FINDINGS: There is increased density right lung base related to moderate pleural effusion. Left lung is clear. There is no heart failure. IMPRESSION: There is decrease in the right pleural effusion compared to old exam. No heart failure. N o pneumothorax.
[2021-02-27] MEDS: PANTOPRAZOLE 40 MG TABLET PO SCH (21:22)
[2021-02-27] MEDS: GABAPENTIN 100 MG CAP PO SCH (21:22)
[2021-02-27] MEDS: ALPRAZolam 1 MG TAB PO SCH (21:22)
[2021-02-27] MEDS: HYDROXYUREA 500 MG CAP PO SCH (21:24)
[2021-02-27] MEDS: METOPROLOL SUCCINATE (ER) 50 MG TAB.ER.24H PO SCH (21:50)
[2021-02-28 00:39] LABS: Appearance,BF Hazy; Color,BF Brown; RBC, Body Fluid 5375 /uL
[2021-02-28 00:40] LABS: Nucleated Cells, Body Fluid 50 /uL
[2021-02-28 00:43] LABS: Mononuclear WBC,Body Fluid 53 %; Polynuclear WBC,Body Fluid 47 %; Total Cells Counted,Body Fluid 100
[2021-02-28] MEDS: LEVOTHYROXINE 50 MCG TAB PO SCH (06:25)
[2021-02-28] MEDS: predniSONE 20 MG TAB PO SCH (08:51)
[2021-02-28] MEDS: ESCITALOPRAM 10 MG TAB PO SCH (08:51)
[2021-02-28] MEDS: guaiFENesin 600 MG TABLET.ER PO SCH ×2 (08:51→20:47)
[2021-02-28] MEDS: METOPROLOL SUCCINATE (ER) 25 MG TAB.ER.24H PO SCH (08:52)
[2021-02-28] MEDS: BENZONATATE 100 MG CAP PO SCH ×4 (08:52→22:30)
[2021-02-28 09:00] LABS: Glucose, BF Source Pleural Fluid; Glucose, Body Fluid 73 mg/dL; Total Protein, Body Fluid 3834 mg/dL
--- NOTE | 2021-02-28 16:19 | P.PN ---
Subjective Progress Note Date: 02/28/21 History of present illness 81-year-old female patient of Dr. Yarbrough with past medical history of thrombocytosis followed Dr. Mitchell the past, history of hyperlipidemia hypertension, chronic back pain, GERD, hypothyroidism comes in with shortness of breath associated with right calf swelling. Patient was recently treated for pneumonia/bronchitis with a past 4 weeks and started feeling better on 4 days ago until yesterday when she started getting short of breath with minimal activity. Patient uses a walker to ambulate and is not as active. She was having significant back pain and decided to see her primary care physician yesterday. On his evaluation he noticed patient to be significantly short of breath and has significant swelling involving her right leg. Patient was sent to the ER for evaluation for pulmonary embolism. CT angiogram was performed which was negative for pulmonary embolism but was found to have a large pleural effusion on the right. Venous Doppler was negative for blood clot. Patient has atelectasis associated with pleural effusion but no consolidation was found. Vitals were reviewed patient is afebrile pulse 77 respiratory rate 18 blood pressure 181/78 oxygen saturation 92% on 3 L labs are suggestive of leukocytosis of 10 R MCV 118 platelet 398 CRP is mildly elevated at 6.9 proBNP 167. Pro- calcitonin ordered. Continue DuoNeb as needed. Patient initiated on Rocephin and azithromycin and pulmonary was consulted for possible thoracentesis 02/26 Patient was evaluated at bedside. Continues to have shortness of breath and cough production with minimal exertion. Plan for thoracentesis today. Ultrasound of the chest was performed that suggested loculated right pleural effusion. Labs reviewed patient has WBC of 10 hemoglobin 13.9 vitamin B12 was more than 2000 and CRP is mildly elevated at 6.9 procalcitonin is normal COVID- 19 was negative 02/27 patient evaluated at bedside. Dystrophy better than yesterday. Still, endorses shortness of breath and cough on exertion. Patient seen the pulmonary plan for consult for interventional radiology for possible thoracentesis of his ultrasound-guided. We'll discontinue antibiotics is pro-calcitonin is normal. Pleural fluid to be evaluated for infection to rule out parapneumonic effusion. 02/28 patient evaluated at bedside. Improvement in shortness of breath since the removal of 750 mL pleural fluid from the right. Pleural fluid was noted to be tarry in color Patient continues to remain short of breath on minimal exertion. Vitals are otherwise stable afebrile pulse 70 respiratory rate 18 blood pressure 136/71. Patient is currently requiring 1 L of oxygenation. Labs are ordered. Pleural fluid analysis pending. Repeat chest x-ray tomorrow ROS Constitutional: Denies chills, Denies fever, Denies lethargy, Denies malaise, Denies poor appetite, Denies weakness, Denies weight loss Eyes: denies decreased vision, denies diplopia, denies discharge, denies pain Ears: deny: decreased hearing Ears, nose, mouth and throat: Denies dental pain, Denies headache, Denies nasal discharge, Denies nose pain Cardiovascular: Denies chest pain, Denies decreased exercise tolerance, Denies edema, Denies high blood pressure, Denies irregular heart beat, Denies palpitations, Denies paroxysmal nocturnal dyspnea, Denies rapid heart beat, Denies shortness of breath Respiratory: Denies congestion, positive for cough, endorses cough with sputum, endorses dyspnea, Denies home oxygen, Denies wheezing Gastrointestinal: Denies abdominal pain, Denies change in bowel habits, Denies coffee ground emesis, Denies early satiety, Denies excessive gas, Denies heartburn, Denies hematemesis, Denies hematochezia, Denies loss of appetite, Denies nausea, Denies vomiting Genitourinary: Denies dysuria, Denies flank pain, Denies kidney stones, Denies menorrhagia, Denies urgency, Denies urinary frequency Musculoskeletal: Endorses gait dysfunction, endorses limitation of motion, Denies morning stiffness, Denies muscle cramps endorses back pain, uses the walker at baseline Integumentary: Denies rash, Denies wounds, Denies brittle nails, Denies change in hair/nails, Denies darkening of skin Neurological: Denies balance difficulties, Denies change in speech, Denies double vision, Denies gait dysfunction, Denies loss of vision, Denies motor disturbance, Denies numbness, Denies paralysis, Denies paresthesias, Denies seizures Psychiatric: Denies anxiety, Denies depression Endocrine: Denies excessive sweating, Denies excessive thirst, Denies high blood sugars, Denies palpitations Hematologic/Lymphatic: Denies easy bruising, Denies lymphadenopathy Physical exam - Constitutional General appearance: cooperative, no acute distress, obese - EENT Eyes: anicteric sclerae, PERRLA, normal appearance ENT: hearing grossly normal - Neck Neck: no lymphadenopathy, normal ROM, no other, no rigidity, no stridor, no thyromegaly - Respiratory Respiratory: bilateral: Decreased air entry on the right, dull on percussion on the right, increased wheezing noted - Cardiovascular Rhythm: regular Heart sounds: normal: S1, S2 Abnormal Heart Sounds: no systolic murmur, no diastolic murmur, no rub, no S3 Gallop, no S4 Gallop, no click, no other - Gastrointestinal General gastrointestinal: normal bowel sounds, soft - Integumentary Integumentary: no rash - Neurologic Neurologic: CNII-XII intact - Musculoskeletal Musculoskeletal: gait normal, strength equal bilaterally - Psychiatric Psychiatric: A&O x's 3, appropriate affect Assessment and plan large pleural effusion on the right secondary to community-acquired pneumonia. 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 - Continue home dose of hydroxyurea 500 by mouth daily on Monday and Monday and 500 mg at bedtime - Platelet normal Hypertension - Continue metoprolol 25 daily and 50 at bedtime Hyperlipidemia - Diet controlled Anxiety and depression - Xanax 1 mg at bedtime - Lexapro 10 mg daily Chronic back pain secondary to degenerative disc disease - Continue her gabapentin 100 mg daily at bedtime Hypothyroidism - Continue Synthyroid of 50 g by mouth daily GERD - Omeprazole 20 mg by mouth daily DVT prophylaxis Heparin every 12 subcu CODE STATUS full code Objective - Vital Signs Vital signs: Vital Signs Temp 98.4 F 02/28/21 08:37 Pulse 70 02/28/21 08:37 Resp 16 02/28/21 08:37 BP 146/80 02/28/21 08:37 Pulse Ox 94 L 02/28/21 08:37 Intake & Output 02/27/21 02/28/21 02/28/21 18:59 06:59 18:59 Intake Total 420 Balance 420 Intake: Oral 420 Other: Voiding Method Diaper # Voids 1 1 # Bowel Movements 1 - Labs CBC & Chem 7: 02/25/21 07:55 02/24/21 15:58 Labs: Microbiology - Last 24 Hours (Table) 02/26/21 15:20 Body Fluid Culture - Preliminary Pleural Fluid
--- NOTE | 2021-02-28 16:22 | P.PN ---
Subjective Progress Note Date: 02/28/21 Principal diagnosis: Shortness of breath, right pleural effusion This is a very pleasant 81-year-old female patient who follows with Dr. Yarbrough as her primary care provider. She has a history of hypertension, hyperlipidemia, gastroesophageal reflux disease, hypothyroidism, chronic back pain. She has also has a history of thrombocytosis. She also has a 60+ year pack per day smoking history. She has been having ongoing issues with shortness of breath, cough and congestion for approximate 4 weeks now. She has been treated with several rounds of antibiotics without much improvement. She presented here to the emergency room yesterday with continued shortness of breat h cough and congestion. Chest x-ray showed a moderate right-sided opacity felt to reflect underlying pleural effusion with atelectasis. CT angiogram ruled out pulmonary embolism. There is again noted large right pleural effusion with some atelectasis in the right lung. No evidence of pulmonary mass. White count 10.0. Hemoglobin 13.9. D-dimer 31.5. Sodium 131. Potassium 4.4. Creatinine 0.51. Jensen virus by PCR not detected. Pro-calcitonin pending. She's been initiated on ceftriaxone and azithromycin. She is seen today in consultation on the regular medical floor. She is sitting up in a chair at the bedside. Awake and alert in no acute distress. She denies any worsening shortness of breath. She has a dry nonproductive cough. Maintaining O2 saturations in the 90s on 3 L/m per nasal cannula. The patient is seen today 02/26/2021 in follow-up on the regular medical floor. She is currently sitting up in bed. Awake and alert in no acute distress. No worsening shortness of breath, cough or congestion. He continues to maintain good O2 saturations in the mid 90s on 3 L/m per nasal cannula. Been afebrile. Hemodynamically stable. Her sound of the right pleural effusion reveals a pocket of 6.8 cm but portions of which are loculated. She remains on ceftriaxone and azithromycin. She did have a a harsh cough and some wheezing and was started on IV Solu-Medrol. The patient is seen today 02/27/2021 in follow-up on the pediatric unit. He is currently sitting up in bed. Awake and alert in no acute distress. She denies any worsening shortness of breath, cough or congestion. Maintaining O2 saturations in the 90s on 3 L/m per nasal cannula. Afebrile. Hemodynamically stable. Awaiting ultrasound-guided thoracentesis today by interventional radiology. She remains on Tessalon Perles, Mucinex, IV Solu-Medrol. The patient is seen today 02/28/2021 in follow-up on the pediatric unit. She is currently sitting up in bed. Awake and alert in no acute distress. Denies any worsening shortness of breath, cough or congestion. She is maintaining good O2 saturations in the 90s on 1 L/m per nasal cannula. She did undergo a right-sided ultrasound-guided thoracentesis by interventional radiology yesterday and states 750 ML's were removed. Fluid analysis revealed brown in color, hazy. Protein 3.8. Exudative. pathology pending. She states they mentioned may be due in another area tomorrow. Culture pending, pathology pending. follow-up chest x-ray revealed decreasing amount of the right pleural effusion.She is currently on a prednisone taper. Continue Mucinex and Tessalon Perles. Much less cough and congestion. Objective - Vital Signs Vital signs: Vital Signs Temp 98.0 F 02/28/21 14:08 Pulse 70 02/28/21 14:08 Resp 18 02/28/21 14:08 BP 136/71 02/28/21 14:08 Pulse Ox 96 02/28/21 14:08 Intake & Output 02/27/21 02/28/21 02/28/21 18:59 06:59 18:59 Intake Total 420 Balance 420 Intake: Oral 420 Other: Voiding Method Diaper # Voids 1 1 1 # Bowel Movements 1 - Exam GENERAL EXAM: Alert, pleasant 81-year-old female patient on 1 L nasal cannula, comfortable in no apparent distress. HEAD: Normocephalic. EYES: Normal reaction of pupils, equal size. NOSE: Clear with pink turbinates. THROAT: No erythema or exudates. NECK: No masses, no JVD. CHEST: No chest wall deformity. LUNGS: Equal air entry with crackles, diminished in the right lung base. CVS: S1 and S2 normal with no audible murmur, regular rhythm. ABDOMEN: No hepatosplenomegaly, normal bowel sounds, no guarding or rigidity. SPINE: No scoliosis or deformity SKIN: No rashes CENTRAL NERVOUS SYSTEM: No focal deficits, tone is normal in all 4 extremities. EXTREMITIES: There is no peripheral edema. No clubbing, no cyanosis. Peripheral pulses are intact. - Labs CBC & Chem 7: 02/25/21 07:55 02/24/21 15:58 Labs: Microbiology - Last 24 Hours (Table) 02/26/21 15:20 Gram Stain - Preliminary Pleural Fluid Body Fluid Culture - Preliminary Assessment and Plan Assessment: 1 Acute hypoxemic respiratory failure secondary to a large right-sided pleural effusion. Treated for pneumonia in the outpatient setting with several rounds of antibiotics without much improvement. Pro-calcitonin 0.06. Antibiotics discontinued. interventional radiologist did perform a thoracentesis yesterday with 750 MLS of dark fluid removed according to the patient. Fluid analysis reveals a protein of 3.8. Exudative. Cultures pending. Pathology pending. 2 Chronic and ongoing tobacco dependence of greater than 60 years 3 Hypertension 4 Hypothyroidism 5 History of anxiety 6 Gastroesophageal reflux disease 7 Thrombocytosis, on hydroxyurea Plan: The patient was seen and evaluated by Dr. Islas Thoracentesis performed yesterday, exudative. Cultures and pathology pending Continue prednisone, Tessalon, Mucinex We will continue to follow I, the cosigning physician, performed a history & physical examination of the patient. Lungs sounds crackles in the right lung base, diminished. Maintaining good O2 saturations in the 90s on 1 L/m per nasal cannula. I discussed the assessment and plan of care with my nurse practitioner, Lisa Ruiz. I attest to the above note as dictated by her.
[2021-02-28 20:41] LABS: LDH, Body Fluid Source Pleural Fluid
[2021-02-28] MEDS: ALPRAZolam 1 MG TAB PO SCH (20:48)
[2021-02-28] MEDS: METOPROLOL SUCCINATE (ER) 50 MG TAB.ER.24H PO SCH (20:48)
[2021-02-28] MEDS: GABAPENTIN 100 MG CAP PO SCH (20:48)
[2021-02-28] MEDS: PANTOPRAZOLE 40 MG TABLET PO SCH (20:48)
[2021-02-28] MEDS: HYDROXYUREA 500 MG CAP PO SCH (20:51)
[2021-03-01 05:37] LABS: Basophils % (A) 0 %; Eosinophils % (A) 0 %; HCT 37.3 % (34.0-46.0); HGB 12.3 gm/dL (11.4-16.0); Lymphocytes # (A) 1.5 k/uL (1.0-4.8); Lymphocytes % (A) 16 %; MCH 38.7 pg (25.0-35.0); MCHC 32.9 g/dL (31.0-37.0); MCV 117.7 fL (80.0-100.0); Macrocytosis Marked; Mean Platelet Volume 8.4; Monocytes # (A) 0.8 k/uL (0-1.0); Monocytes % (A) 8 %; Neutrophils # (A) 7.4 k/uL (1.3-7.7); Neutrophils % (A) 74 %; Platelet Count 340 k/uL (150-450); RBC 3.16 m/uL (3.80-5.40); RDW 15.6 % (11.5-15.5); WBC 9.9 k/uL (3.8-10.6)
[2021-03-01] MEDS: HYDROXYUREA 500 MG CAP PO SCH ×2 (06:09→20:42)
[2021-03-01] MEDS: LEVOTHYROXINE 50 MCG TAB PO SCH (06:09)
[2021-03-01 06:38] LABS: ALT 21 U/L (4-34); AST 23 U/L (14-36); African American GFR (CKD) >90 (>60 ml/min/1.73 sqM); Albumin 2.8 g/dL (3.5-5.0); Alkaline Phosphatase 57 U/L (38-126); Anion Gap 2 mmol/L; Blood Urea Nitrogen 22 mg/dL (7-17); Calcium 8.4 mg/dL (8.4-10.2); Carbon Dioxide 30 mmol/L (22-30); Chloride 100 mmol/L (98-107); Glucose 117 mg/dL (74-99); Non-African American GFR(CKD) 86 (>60 ml/min/1.73 sqM); Sodium 132 mmol/L (137-145); Total Bilirubin 0.3 mg/dL (0.2-1.3); Total Protein 5.9 g/dL (6.3-8.2)
--- NOTE | 2021-03-01 07:46 | US ---
EXAMINATION TYPE: US thoracentesis DATE OF EXAM: 02/27/2021 COMPARISON: Ultrasound one day earlier. CTA chest 3 days earlier. HISTORY: Pleural effusion. EQUIPMENT OPERATOR INTERMODAL YARD: Dr. Duncan PROCEDURE: The procedure was discussed with the patient. The risks, complications, benefits, and alternatives we re discussed and any questions were answered. Informed consent was obtained. Preprocedure preliminary imaging redemonstrates moderate to large size pleural fluid collection is no t completely anechoic in the lower right thorax. Maximal barrier technique was utilized. Overlying skin is cleansed with Betadine. The skin overlying a suitable pocket of fluid of the right chest was localized and the overlying skin prepped and draped . Lidocaine was used for local anesthesia. Ultrasound was used with sterile technique. An 8 [place] sa fety centesis catheter was advanced into the pleural fluid collection using ultrasound guidance. Appr oximately 750 cc of dark-colored fluid was removed. Patient began to have symptoms of atypical chest pain going into neck so at this point procedure was chosen to be terminated. Catheter was withdrawn a nd hemostasis achieved. A sterile bandage was applied. Postprocedure imaging demonstrated moderate residual pleural effusion. There is no immediate complica tion. IMPRESSION: 1. Status post ultrasound-guided right thoracentesis, with removal of 750 L of dark-colored fluid. Pr ocedure predominantly for diagnostic purposes. 2. Postprocedure chest x-ray pending.
[2021-03-01] MEDS: predniSONE 20 MG TAB PO SCH (08:39)
[2021-03-01] MEDS: BENZONATATE 100 MG CAP PO SCH ×3 (08:40→20:42)
[2021-03-01] MEDS: ESCITALOPRAM 10 MG TAB PO SCH (08:41)
[2021-03-01] MEDS: guaiFENesin 600 MG TABLET.ER PO SCH ×2 (08:42→20:42)
[2021-03-01] MEDS: METOPROLOL SUCCINATE (ER) 25 MG TAB.ER.24H PO SCH (08:44)
--- NOTE | 2021-03-01 15:56 | P.PN ---
Subjective Progress Note Date: 03/01/21 This is a very pleasant 81-year-old female patient who follows with Dr. Yarbrough as her primary care provider. She has a history of hypertension, hyperlipidemia, gastroesophageal reflux disease, hypothyroidism, chronic back pain. She has also has a history of thrombocytosis. She also has a 60+ year pack per day smoking history. She has been having ongoing issues with shortness of breath, cough and congestion for approximate 4 weeks now. She has been treated with several rounds of antibiotics without much improvement. She presented here to the emergency room yesterday with continued shortness of breath cough and congestion. Chest x-ray showed a moderate right-sided opacity felt to reflect underlying pleural effusion with atelectasis. CT angiogram ruled out pulmonary embolism. There is again noted large right pleural effusion with some atelectasis in the right lung. No evidence of pulmonary mass. White count 10.0. Hemoglobin 13.9. D-dimer 31.5. Sodium 131. Potassium 4.4. Crea tinine 0.51. Jensen virus by PCR not detected. Pro-calcitonin pending. She's been initiated on ceftriaxone and azithromycin. She is seen today in consultation on the regular medical floor. She is sitting up in a chair at the bedside. Awake and alert in no acute distress. She denies any worsening shortness of breath. She has a dry nonproductive cough. Maintaining O2 saturations in the 90s on 3 L/m per nasal cannula. The patient is seen today 02/26/2021 in follow-up on the regular medical floor. She is currently sitting up in bed. Awake and alert in no acute distress. No worsening shortness of breath, cough or congestion. He continues to maintain good O2 saturations in the mid 90s on 3 L/m per nasal cannula. Been afebrile. Hemodynamically stable. Her sound of the right pleural effusion reveals a pocket of 6.8 cm but portions of which are loculated. She remains on ceftria xone and azithromycin. She did have a a harsh cough and some wheezing and was started on IV Solu-Medrol. The patient is seen today 02/27/2021 in follow-up on the pediatric unit. He is currently sitting up in bed. Awake and alert in no acute distress. She denies any worsening shortness of breath, cough or congestion. Maintaining O2 saturations in the 90s on 3 L/m per nasal cannula. Afebrile. Hemodynamically stable. Awaiting ultrasound-guided thoracentesis today by interventional radiology. She remains on Tessalon Perles, Mucinex, IV Solu-Medrol. The patient is seen today 02/28/2021 in follow-up on the pediatric unit. She is currently sitting up in bed. Awake and alert in no acute distress. Denies any worsening shortness of breath, cough or congestion. She is maintaining good O2 saturations in the 90s on 1 L/m per nasal cannula. She did undergo a right-sided ultrasound-guided thoracentesis by interventional radiology yesterday and states 750 ML's were removed. Fluid analysis revealed brown in color, hazy. Protein 3.8. Exudative. pathology pending. She states they mentioned may be due in another area tomorrow. Culture pending, pathology pending. follow-up chest x-ray revealed decreasing amount of the right pleural effusion.She is currently on a prednisone taper. Continue Mucinex and Tessalon Perles. Much less cough and congestion. 03/01/2021, the patient is on 1 L of oxygen by nasal cannula. The patient is post thoracentesis in the fluid cytology still pending. Malignancies obviously concerning to the patient's fluid is essentially and exudate with an elevated LDH and protein. For now, the fluid cytology still pending. Meanwhile, the CAT scan of the chest showed no evidence of any malignancies or masses within the right hemithorax. The patient is known to have hypertension, hyperlipidemia and hypothyroidism and chronic back pain. The patient has also thrombocytosis. She has [id number] smoking history. She initially presented to us with worsening shortness of breath and further investigation revealed a right-sided pleural effusion. The patient also has history of COPD. Objective - Vital Signs Vital signs: Vital Signs Temp 98.4 F 03/01/21 13:33 Pulse 64 03/01/21 13:33 Resp 24 03/01/21 13:33 BP 118/70 03/01/21 13:33 Pulse Ox 95 03/01/21 13:33 Intake & Output 02/28/21 03/01/21 03/01/21 18:59 06:59 18:59 Intake Total 420 Balance 420 Intake: Oral 420 Other: Voiding Method Diaper Toilet Toilet Incontinent Diaper Diaper # Voids 1 1 4 - Exam GENERAL EXAM: Alert, pleasant 81-year-old female patient on 1 L nasal cannula, comfortable in no apparent distress. HEAD: Normocephalic. EYES: Normal reaction of pupils, equal size. NOSE: Clear with pink turbinates. THROAT: No erythema or exudates. NECK: No masses, no JVD. CHEST: No chest wall deformity. LUNGS: Equal air entry with crackles, diminished in the right lung base. CVS: S1 and S2 normal with no audible murmur, regular rhythm. ABDOMEN: No hepatosplenomegaly, normal bowel sounds, no guarding or rigidity. SPINE: No scoliosis or deformity SKIN: No rashes CENTRAL NERVOUS SYSTEM: No focal deficits, tone is normal in all 4 extremities. EXTREMITIES: There is no peripheral edema. No clubbing, no cyanosis. Periph eral pulses are intact. patient is - Labs CBC & Chem 7: 03/01/21 04:40 03/01/21 04:40 Labs: Abnormal Lab Results - Last 24 Hours (Table) 03/01/21 03/01/21 Range/Units 04:40 04:40 RBC 3.16 L (3.80-5.40) m/uL MCV 117.7 H (80.0-100.0) fL MCH 38.7 H (25.0-35.0) pg RDW 15.6 H (11.5-15.5) % Macrocytosis Marked A Sodium 132 L (137-145) mmol/L BUN 22 H (7-17) mg/dL Glucose 117 H (74-99) mg/dL Total Protein 5.9 L (6.3-8.2) g/dL Albumin 2.8 L (3.5-5.0) g/dL Microbiology - Last 24 Hours (Table) 02/26/21 15:20 Gram Stain - Preliminary Pleural Fluid Body Fluid Culture - Preliminary Assessment and Plan Plan: 1 Acute hypoxemic respiratory failure secondary on top of chronic hypoxic resp iratory failure to a large right-sided pleural effusion. Treated for pneumonia in the outpatient setting with several rounds of antibiotics without much improvement. Pro-calcitonin 0.06. Antibiotics discontinued. interventional radiologist did perform a thoracentesis yesterday with 750 MLS of dark fluid removed according to the patient. Fluid analysis reveals a protein of 3.8. Exudative. Cultures pending. Pathology pending. There is a high likelihood of malignancy as the patient is a chronic smoker with [id number]-band smoking history and the fluid being and exudate. The fluid cytology results are not back yet. 2 E with chronic hypoxic respiratory failure exacerbated by development of a right-sided pleural effusion. The patient is a Chronic and ongoing tobacco dependence greater than 60 years 3 Hypertension 4 Hypothyroidism 5 History of anxiety 6 Gastroesophageal reflux disease 7 Thrombocytosis, on hydroxyurea 8 chronic hypoxic respiratory failure with acute decompensation secondary development of right-sided pleural effusion. Plan: Discharge the patient home on home oxygen at 2 L per minute nasal cannula We will arrange oxygen on the basis of COPD and a chronic right-sided pleural effusion and chronic hypoxic respiratory failure Thoracentesis performed yesterday, exudative.High likelihood for malignancy and the fluid cytology is still pending for now. Cultures and pathology pending Continue prednisone, Tessalon, Mucinex We will continue to follow . The patient can be discharged home to be followed up on outpatient basis. Further recommendations are to follow depending on the cytology results. This can be also arranged on outpatient basis.
--- NOTE | 2021-03-01 17:01 | P.DS ---
Providers Date of admission: 02/24/21 19:56 Expected date of discharge: 03/01/21 Attending physician: Chava Cornell MD Consults: 02/24/21 20:14 Consult Physician Routine Consulting Provider: Philip Islas Consult Reason/Comments: Right pleural effusion Do you want consulting provider notified?: Yes [facility]: History of present illness 81-year-old female patient of Dr. Yarbrough with past medical history of thrombocytosis followed Dr. Mitchell the past, history of hyperlipidemia hypertension, chronic back pain, GERD, hypothyroidism comes in with shortness of breath associated with right calf swelling. Patient was recently treated for pneumonia/bronchitis with a past 4 weeks and started feeling better on 4 days a go until yesterday when she started getting short of breath with minimal activity. Patient uses a walker to ambulate and is not as active. She was having significant back pain and decided to see her primary care physician yesterday. On his evaluation he noticed patient to be significantly short of breath and has significant swelling involving her right leg. Patient was sent to the ER for evaluation for pulmonary embolism. CT angiogram was performed which was negative for pulmonary embolism but was found to have a large pleural effusion on the right. Venous Doppler was negative for blood clot. Patient has atelectasis associated with pleural effusion but no consolidation was found. Vitals were reviewed patient is afebrile pulse 77 respiratory rate 18 blood pressure 181/78 oxygen saturation 92% on 3 L labs are suggestive of leukocytosis of 10 R MCV 118 platelet 398 CRP is mildly elevated at 6.9 proBNP 167. Pro- calcitonin ordered. Continue DuoNeb as needed. Patient initiated on Rocephin and azithromycin and pulmonary was consulted for possible thoracentesis 02/26 Patient was evaluated at bedside. Continues to have shortness of breath and cough production with minimal exertion. Plan for thoracentesis today. Ultrasound of the chest was performed that suggested loculated right pleural effusion. Labs reviewed patient has WBC of 10 hemoglobin 13.9 vitamin B12 was more than 2000 and CRP is mildly elevated at 6.9 procalcitonin is normal COVID- 19 was negative 02/27 patient evaluated at bedside. Dystrophy better than yesterday. Still, endorses shortness of breath and cough on exertion. Patient seen the pulmonary plan for consult for interventional radiology for possible thoracentesis of his ultrasound-guided. We'll discontinue antibiotics is pro-calcitonin is normal. Pleural fluid to be evaluated for infection to rule out parapneumonic effusion. 02/28 patient evaluated at bedside. Improvement in shortness of breath since the removal of 750 mL pleural fluid from the right. Pleural fluid was noted to be tarry in color Patient continues to remain short of breath on minimal exertion. Vitals are otherwise stable afebrile pulse 70 respiratory rate 18 blo od pressure 136/71. Patient is currently requiring 1 L of oxygenation. Labs are ordered. Pleural fluid analysis pending. Repeat chest x-ray tomorrow 03/01: She has been afebrile, heart rate 54, blood pressure 132/74, pulse ox 96% on 2 L nasal cannula. Repeat blood work reveals WBC 9.9, hemoglobin 12.3 and platelet count 340. Sodium 132 otherwise electrolytes are normal. BUN 22 and creatinine 0.62. Glucose 117. Albumin 2.8. Gram Stain on pleural fluid showed no organisms, rare polymorphonuclear leukocytes. There is no growth at 24 hours. Patient has been cleared for discharge by pulmonary medicine. Patient was assessed for home oxygen need and pulse ox was 88% with activity. Home oxygen therapy arranged by case management assistant. Patient will be discharged home today in stable condition. DISCHARGE DIAGNOSES Large pleural effusion status post thoracentesis with removal of 750 ML's of dark fluid. Pneumonia ruled out by pulmonary medicine, Acute bronchitis with prominent wheezing Thrombocytosis, chronic Hypertension Hyperlipidemia Generalized anxiety disorder and recurrent depression Chronic back pain secondary to degenerative disc disease Hypothyroidism GERD Hypoxic respiratory failure requiring home oxygen therapy. DISCHARGE PLAN Home with [facility] Greater than 35 minutes was utilized and coordinating patient's discharge. Impression and plan of care have been directed as dictated by the signing physician. Tish Baldwin nurse practitioner acting as scribe for signing physician. Patient Condition at Discharge: Good Plan - Discharge Summary Discharge Rx Participant: No New Discharge Prescriptions: New guaiFENesin [Mucinex] 1,200 mg PO Q12HR tablet predniSONE 0 mg PO DIRECTED #30 tab Benzonatate [Tessalon Perles] 200 mg PO TID #30 cap Continue Levothyroxine Sodium [Synthroid] 50 mcg PO DAILY Omeprazole 20 mg PO HS Vitamin B Complex 1 cap PO DAILY Estradiol 1 mg PO DAILY Metoprolol Succinate [Toprol XL] 25 mg PO DAILY Metoprolol Succinate [Toprol XL] 50 mg PO HS Hydroxyurea 500 mg PO MOTUWE@0700 Hydroxyurea 500 mg PO HS Gabapentin [Neurontin] 100 mg PO HS ALPRAZolam [Xanax] 1 mg PO HS Escitalopram [Lexapro] 10 mg PO DAILY Multivit-Min/Iron/Folic/Lutein [Centrum Silver Women Tablet] 1 tab PO DAILY Discharge Medication List Levothyroxine Sodium [Synthroid] 50 mcg PO DAILY 04/08/14 [History] Omeprazole 20 mg PO HS 04/08/14 [History] Vitamin B Complex 1 cap PO DAILY 04/13/15 [History] Estradiol 1 mg PO DAILY 04/21/15 [History] Gabapentin [Neurontin] 100 mg PO HS 03/18/20 [History] Hydroxyurea 500 mg PO HS 03/18/20 [History] Hydroxyurea 500 mg PO MOTUWE@0700 03/18/20 [History] Metoprolol Succinate [Toprol XL] 25 mg PO DAILY 03/18/20 [History] Metoprolol Succinate [Toprol XL] 50 mg PO HS 03/18/20 [History] ALPRAZolam [Xanax] 1 mg PO HS 02/24/21 [History] Escitalopram [Lexapro] 10 mg PO DAILY 02/24/21 [History] Multivit-Min/Iron/Folic/Lutein [Centrum Silver Women Tablet] 1 tab PO DAILY 02/24/21 [History] Benzonatate [Tessalon Perles] 200 mg PO TID #30 cap 03/01/21 [Rx] guaiFENesin [Mucinex] 1,200 mg PO Q12HR tablet 03/01/21 [Rx] predniSONE 0 mg PO DIRECTED #30 tab 03/01/21 [Rx] Follow up Appointment(s)/Referral(s): [facility] [facility] [NON-STAFF] - As Needed [facility] [REFERRING] - As Needed [facility] [NON-STAFF] - As Needed Uriel Yarbrough DO [Primary Care Provider] - 1 Week [facility] [NON-STAFF] - As Needed Johanny Cutler MD [STAFF PHYSICIAN] - 1 Week [facility] Visiting Nurse, [NON-STAFF] - 1-2 Days Patient Instructions/Handouts: Thoracentesis (GEN) Discharge Disposition: HOME WITH HOME HEALTH SERVICES
--- NOTE | 2021-03-01 17:05 | P.PN ---
Subjective Progress Note Date: 03/01/21 History of present illness 81-year-old female patient of Dr. Yarbrough with past medical history of thrombocytosis followed Dr. Mitchell the past, history of hyperlipidemia hypertension, chronic back pain, GERD, hypothyroidism comes in with shortness of breath associated with right calf swelling. Patient was recently treated for pneumonia/bronchitis with a past 4 weeks and started feeling better on 4 days ago until yesterday when she started getting short of breath with minimal activity. Patient uses a walker to ambulate and is not as active. She was having significant back pain and decided to see her primary care physician yesterday. On his evaluation he noticed patient to be significantly short of breath and has significant swelling involving her right leg. Patient was sent to the ER for evaluation for pulmonary embolism. CT angiogram was performed which was negative for pulmonary embolism but was found to have a large pleural effusion on the right. Venous Doppler was negative for blood clot. Patient has atelectasis associated with pleural effusion but no consolidation was found. Vitals were reviewed patient is afebrile pulse 77 respiratory rate 18 blood pressure 181/78 oxygen saturation 92% on 3 L labs are suggestive of leukocytosis of 10 R MCV 118 platelet 398 CRP is mildly elevated at 6.9 proBNP 167. Pro- calcitonin ordered. Continue DuoNeb as needed. Patient initiated on Rocephin and azithromycin and pulmonary was consulted for possible thoracentesis 02/26 Patient was evaluated at bedside. Continues to have shortness of breath and cough production with minimal exertion. Plan for thoracentesis today. Ultrasound of the chest was performed that suggested loculated right pleural effusion. Labs reviewed patient has WBC of 10 hemoglobin 13.9 vitamin B12 was more than 2000 and CRP is mildly elevated at 6.9 procalcitonin is normal COVID- 19 was negative 02/27 patient evaluated at bedside. Dystrophy better than yesterday. Still, endorses shortness of breath and cough on exertion. Patient seen the pulmonary plan for consult for interventional radiology for possible thoracentesis of his ultrasound-guided. We'll discontinue antibiotics is pro-calcitonin is normal. Pleural fluid to be evaluated for infection to rule out parapneumonic effusion. 02/28 patient evaluated at bedside. Improvement in shortness of breath since the removal of 750 mL pleural fluid from the right. Pleural fluid was noted to be tarry in color Patient continues to remain short of breath on minimal exertion. Vitals are otherwise stable afebrile pulse 70 respiratory rate 18 blood pressure 136/71. Patient is currently requiring 1 L of oxygenation. Labs are ordered. Pleural fluid analysis pending. Repeat chest x-ray tomorrow 03/01: She has been afebrile, heart rate 54, blood pressure 132/74, pulse ox 96% on 2 L nasal cannula. Repeat blood work reveals WBC 9.9, hemoglobin 12.3 and platelet count 340. Sodium 132 otherwise electrolytes are normal. BUN 22 and creatinine 0.62. Glucose 117. Albumin 2.8. Gram Stain on pleural fluid showed no organisms, rare polymorphonuclear leukocytes. There is no growth at 24 hours. Patient has been cleared for discharge by pulmonary medicine. Patient was assessed for home oxygen need and pulse ox was 88% with activity. Home oxygen therapy arranged by human services case manager. Her DME has been arranged by human services case manager and will be delivered tomorrow morning best discharge will be held until DME is in place tomorrow morning. Return to ca and has ordered for pathology on pleural fluid to rule out malignancy. ROS Constitutional: Denies chills, Denies fever, Denies lethargy, Denies malaise, Denies poor appetite, Denies weakness, Denies weight loss Eyes: denies decreased vision, denies diplopia, denies discharge, denies pain Ears: deny: decreased hearing Ears, nose, mouth and throat: Denies dental pain, Denies headache, Denies nasal discharge, Denies nose pain Cardiovascular: Denies chest pain, Denies decreased exercise tolerance, Denies edema, Denies high blood pressure, Denies irregular heart beat, Denies palpitations, Denies paroxysmal nocturnal dyspnea, Denies rapid heart beat, Denies shortness of breath Respiratory: Denies congestion, positive for cough, endorses cough with sputum, endorses dyspnea, Denies wheezing Gastrointestinal: Denies abdominal pain, Denies change in bowel habits, Denies coffee ground emesis, Denies early satiety, Denies excessive gas, Denies heart burn, Denies hematemesis, Denies hematochezia, Denies loss of appetite, Denies nausea, Denies vomiting Genitourinary: Denies dysuria, Denies flank pain, Denies kidney stones, Denies menorrhagia, Denies urgency, Denies urinary frequency Musculoskeletal: Endorses gait dysfunction, endorses limitation of motion, Denies morning stiffness, Denies muscle cramps endorses back pain, uses the walker at baseline Integumentary: Denies rash, Denies wounds, Denies brittle nails, Denies change in hair/nails, Denies darkening of skin Neurological: Denies balance difficulties, Denies change in speech, Denies double vision, Denies gait dysfunction, Denies loss of vision, Denies motor disturbance, Denies numbness, Denies paralysis, Denies paresthesias, Denies seizures Psychiatric: Denies anxiety, Denies depression Endocrine: Denies excessive sweating, Denies excessive thirst, Denies high blood sugars, Denies palpitations Hematologic/Lymphatic: Denies easy bruising, Denies lymphadenopathy Physical exam - Constitutional General appearance: cooperative, no acute distress, obese - EENT Eyes: anicteric sclerae, PERRLA, normal appearance ENT: hearing grossly normal - Neck Neck: no lymphadenopathy, normal ROM, no other, no rigidity, no stridor, no thyromegaly - Respiratory Respiratory: bilateral: Decreased air entry on the right, dull on percussion on the right, increased wheezing noted - Cardiovascular Rhythm: regular Heart sounds: normal: S1, S2 Abnormal Heart Sounds: no systolic murmur, no diastolic murmur, no rub, no S3 Gallop, no S4 Gallop, no click, no other - Gastrointestinal General gastrointestinal: normal bowel sounds, soft - Integumentary Integumentary: no rash - Neurologic Neurologic: CNII-XII intact - Musculoskeletal Musculoskeletal: gait normal, strength equal bilaterally - Psychiatric Psychiatric: A&O x's 3, appropriate affect Assessment and plan large pleural effusion and pneumonia ruled out by pulmonary medicine, status post thoracentesis with removal of 750 ML's of dark fluid. Continue Tessalon Perles, Mucinex, prednisone 40 mg daily. Acute bronchitis with prominent wheezing - Prednisone 40 mg by mouth daily Thrombocytosis - Follows primary care and ux design manager Dr. Gonzáles - Continue home dose of hydroxyurea 500 by mouth daily on Monday and Monday and 500 mg at bedtime - Platelet normal Hypertension - Continue metoprolol 25 daily and 50 at bedtime Hyperlipidemia - Diet controlled Generalized anxiety disorder and recurrent depression - Xanax 1 mg at bedtime - Lexapro 10 mg daily Chronic back pain secondary to degenerative disc disease - Continue her gabapentin 100 mg daily at bedtime Hypothyroidism - Continue Synthyroid of 50 g by mouth daily GERD - Omeprazole 20 mg by mouth daily DVT prophylaxis Heparin every 12 subcu CODE STATUS full code Impression and plan of care have been directed as dictated by the signing physician. Tish Baldwin nurse practitioner acting as scribe for signing physician. Objective - Vital Signs Vital signs: Vital Signs Temp 98.2 F 03/01/21 07:56 Pulse 54 L 03/01/21 07:56 Resp 18 03/01/21 07:56 BP 132/74 03/01/21 07:56 Pulse Ox 96 03/01/21 07:56 Intake & Output 02/28/21 03/01/21 03/01/21 18:59 06:59 18:59 Intake Total 420 Balance 420 Intake: Oral 420 Other: Voiding Method Diaper Toilet Incontinent Diaper # Voids 1 1 - Labs CBC & Chem 7: 03/01/21 04:40 03/01/21 04:40 Labs: Abnormal Lab Results - Last 24 Hours (Table) 03/01/21 03/01/21 Range/Units 04:40 04:40 RBC 3.16 L (3.80-5.40) m/uL MCV 117.7 H (80.0-100.0) fL MCH 38.7 H (25.0-35.0) pg RDW 15.6 H (11.5-15.5) % Macrocytosis Marked A Sodium 132 L (137-145) mmol/L BUN 22 H (7-17) mg/dL Glucose 117 H (74-99) mg/dL Total Protein 5.9 L (6.3-8.2) g/dL Albumin 2.8 L (3.5-5.0) g/dL Microbiology - Last 24 Hours (Table) 02/26/21 15:20 Gram Stain - Preliminary Pleural Fluid Body Fluid Culture - Preliminary
[2021-03-01] MEDS: PANTOPRAZOLE 40 MG TABLET PO SCH (20:42)
[2021-03-01] MEDS: GABAPENTIN 100 MG CAP PO SCH (20:42)
[2021-03-01] MEDS: METOPROLOL SUCCINATE (ER) 50 MG TAB.ER.24H PO SCH (20:42)
[2021-03-01] MEDS: ALPRAZolam 1 MG TAB PO SCH (20:42)
[2021-03-02] MEDS: HYDROXYUREA 500 MG CAP PO SCH (06:15)
[2021-03-02] MEDS: LEVOTHYROXINE 50 MCG TAB PO SCH (06:16)
[2021-03-02 07:28] LABS: HCT 42.1 % (34.0-46.0); HGB 13.6 gm/dL (11.4-16.0); MCH 37.4 pg (25.0-35.0); MCHC 32.4 g/dL (31.0-37.0); MCV 115.5 fL (80.0-100.0); Macrocytosis Marked; Mean Platelet Volume 7.7; Platelet Count 428 k/uL (150-450); RBC 3.65 m/uL (3.80-5.40); RDW 14.7 % (11.5-15.5); WBC 10.5 k/uL (3.8-10.6)
[2021-03-02] MEDS: BENZONATATE 100 MG CAP PO SCH (09:16)
[2021-03-02] MEDS: guaiFENesin 600 MG TABLET.ER PO SCH (09:16)
[2021-03-02] MEDS: ESCITALOPRAM 10 MG TAB PO SCH (09:16)
[2021-03-02] MEDS: predniSONE 20 MG TAB PO SCH (09:16)
[2021-03-02] MEDS: METOPROLOL SUCCINATE (ER) 25 MG TAB.ER.24H PO SCH (09:16)
[2021-03-02 10:00] VITALS: BP 141/80; PULSE 63; RESP 16; TEMP 98
[2021-03-02 11:26] LABS: Erythrocyte Sedimentation Rate 34 mm/hr (0-20)
== END 2021-03-02 11:56 | disposition home health service (06) | DRG 186 ==
LOC: EC 13:40 → 6NMEDSUR 19:56 → OBSVTOIN 19:56 → 6NMEDSUR 20:37 → 6PED 02-26 17:35
PROVIDERS: ADMIT Internal Medicine; ATTEND Internal Medicine
PROC: 0W993ZX Drainage of Right Pleural Cavity, Percutaneous Approach, Diagnostic (ICD-10-PCS; principal; 2021-02-24)
DX: J90 Pleural effusion, not elsewhere classified (principal); J96.21 Acute and chronic respiratory failure with hypoxia; F33.9 Major depressive disorder, recurrent, unspecified; J98.11 Atelectasis; J44.9 Chronic obstructive pulmonary disease, unspecified; E89.2 Postprocedural hypoparathyroidism; Z20.822 Contact with and (suspected) exposure to COVID-19; J20.9 Acute bronchitis, unspecified; E03.9 Hypothyroidism, unspecified; E78.5 Hyperlipidemia, unspecified; I10 Essential (primary) hypertension; K21.9 Gastro-esophageal reflux disease without esophagitis; D75.839 Thrombocytosis, unspecified; M51.34 Other intervertebral disc degeneration, thoracic region; G89.29 Other chronic pain; F41.1 Generalized anxiety disorder; M19.90 Unspecified osteoarthritis, unspecified site; E66.9 Obesity, unspecified; Z68.30 Body mass index [BMI] 30.0-30.9, adult; F17.210 Nicotine dependence, cigarettes, uncomplicated; Z71.6 Tobacco abuse counseling; Z79.890 Hormone replacement therapy; Z79.899 Other long term (current) drug therapy; Z87.39 Personal history of other diseases of the musculoskeletal system and connective tissue; Z90.49 Acquired absence of other specified parts of digestive tract; Z87.19 Personal history of other diseases of the digestive system; Z98.891 History of uterine scar from previous surgery; Z90.710 Acquired absence of both cervix and uterus; Z87.42 Personal history of other diseases of the female genital tract; Z96.651 Presence of right artificial knee joint; Z87.09 Personal history of other diseases of the respiratory system; Z98.42 Cataract extraction status, left eye; Z98.41 Cataract extraction status, right eye; Z90.79 Acquired absence of other genital organ(s); Z90.722 Acquired absence of ovaries, bilateral; Z87.01 Personal history of pneumonia (recurrent); Z98.890 Other specified postprocedural states; Z88.6 Allergy status to analgesic agent; Z88.2 Allergy status to sulfonamides; Z82.3 Family history of stroke; Z71.3 Dietary counseling and surveillance; M79.661 Pain in right lower leg; K59.00 Constipation, unspecified
CPT/HCPCS: 32555; 36415; 71045; 71046; 71275; 76604; 80053; 82607; 82746; 82945; 83605; 83615; 83735; 83880; 84145; 84157; 84484; 85025; 85027; 85379; 85610; 85652; 85730; 86140; 87070; 87205; 87635; 88108; 88305; 88341; 88342; 89050; 93005; 99285

== ENCOUNTER 2021-03-15 10:18 | Inpatient (IN) | payer MEDICARE ==
[2021-03-15] MEDS ORDERED: ALBUTEROL NEBULIZED 2.5 MG/3 ML INHALATION STA (10:23)
[2021-03-15] MEDS ORDERED: methylPREDNISolone SOD SUCCI 125 MG/2 ML VIAL IV STA (10:23)
[2021-03-15] MEDS ORDERED: IPRATROPIUM 0.5 MG/2.5 ML NEBU INHALATION STA (10:23)
--- NOTE | 2021-03-15 10:26 | ED ---
General Adult HPI - General Stated complaint: Shortness of Breath Time Seen by Provider: 03/15/21 10:18 Source: patient, RN notes reviewed, old records reviewed - History of Present Illness Initial comments: This is a 81-year-old female presents emergency department with past medical history significant for congestive heart failure as well as COPD. Patient states she smoked for about 60 years. Patient comes in today because she states her difficulty breathing since his been ongoing since January and is getting progressively worse. Patient thinks it might be her congestive heart failure even though her legs have no worsening edema. Patient denies any fever chills per patient states she did get the COVID vaccine 2. Patient denies any chest pain or palpitations. Patient denies abdominal pain patient denies nausea v omiting diarrhea. - Related Data Home Medications Medication Instructions Recorded Confirmed Levothyroxine Sodium [Synthroid] 50 mcg PO DAILY 04/08/14 03/15/21 Omeprazole 20 mg PO HS 04/08/14 03/15/21 Vitamin B Complex 1 cap PO DAILY 04/13/15 03/15/21 Estradiol 1 mg PO DAILY 04/21/15 03/15/21 Gabapentin [Neurontin] 100 mg PO HS 03/18/20 03/15/21 Hydroxyurea 500 mg PO HS 03/18/20 03/15/21 Hydroxyurea 500 mg PO SUMOTU 03/18/20 03/15/21 Metoprolol Succinate [Toprol XL] 25 mg PO DAILY 03/18/20 03/15/21 Metoprolol Succinate [Toprol XL] 50 mg PO HS 03/18/20 03/15/21 ALPRAZolam [Xanax] 1 mg PO HS 02/24/21 03/15/21 Escitalopram [Lexapro] 10 mg PO DAILY 02/24/21 03/15/21 Multivit-Min/Iron/Folic/Lutein 1 tab PO DAILY 02/24/21 03/15/21 [Centrum Silver Women Tablet] Aspirin EC [Ecotrin] 325 mg PO DAILY 03/15/21 03/15/21 Cetirizine HCl [Zyrtec] 10 mg PO DAILY 03/15/21 03/15/21 Ergocalciferol [Vitamin D2 (1250 1,250 mcg PO TU 03/15/21 03/15/21 Mcg = 16150 Iu)] Allergies Allergy/AdvReac Type Severity Reaction Status Date / Time naproxen Allergy Unknown Verified 03/15/21 11:52 Sulfa (Sulfonamide Allergy Rash/Hives Verified 03/15/21 11:52 Antibiotics) Review of Systems ROS Statement: Those systems with pertinent positive or pertinent negative responses have been documented in the HPI. ROS Other: All systems not noted in ROS Statement are negative. Past Medical History Past Medical History: Blood Disorder, GERD/Reflux, Hyperlipidemia, Hypertension, Musculoskeletal Disorder, Osteoarthritis (OA), Thyroid Disorder Additional Past Medical History / Comment(s): seeing Dr Gonzáles for elevated platelets, rt rotator cuff arthropathy, pt stated has'nt had a good appetite nad wt down 30 pounds in a year. History of Any Multi-Drug Resistant Organisms: None Reported Past Surgical History: Appendectomy, Bladder Surgery, Section, Cholecystectomy, Hysterectomy, Joint Replacement, Orthopedic Surgery Additional Past Surgical History / Comment(s): right knee replaced x 2,parathyroidectomy,cataract surg., arthroscopy right shoulder, polyps removed from throat. 04-21-15 rt reverse total shoulder athroplsty, bilateral cataract surgery, appendectomy, 3, total abdominal hysterectomy and bilateral salpingo-oophorectomy. Past Anesthesia/Blood Transfusion Reactions: Motion Sickness, Postoperative Nausea & Vomiting (PONV) Additional Past Anesthesia/Blood Transfusion Reaction / Comment(s): only sick once w/anesthesia Past Psychological History: Anxiety Additional Psychological History / Comment(s): has smoked for 50 yrs. Smoking Status: Never smoker Past Alcohol Use History: None Reported Past Drug Use History: None Reported - Past Family History Father History Unknown: Yes Family Medical History: Unable to Obtain Mother History Unknown: Yes Family Medical History: Unable to Obtain General Exam - General Exam Comments Initial Comments: GENERAL: Patient is well-developed and well-nourished. Patient is nontoxic and well- hydrated and is in mild distress. ENT: Neck is soft and supple. No significant lymphadenopathy is noted. Oropharynx is clear. Moist mucous membranes. Neck has full range of motion without eliciting any pain. EYES: The sclera were anicteric and conjunctiva were pink and moist. Extraocular movements were intact and pupils were equal round and reactive to light. Eyelids were unremarkable. PULMONARY: Diminished breath sounds in the bases and expiratory wheezing. CARDIOVASCULAR: There is a regular rate and rhythm without any murmurs gallops or rubs. ABDOMEN: Soft and nontender with normal bowel sounds. SKIN: Skin is clear with no lesions or rashes and otherwise unremarkable. NEUROLOGIC: Patient is alert and oriented x3. Cranial nerves II through XII are grossly intact. Motor and sensory are also intact. Normal speech, volume and content. Symmetrical smile. MUSCULOSKELETAL: Normal extremities with adequate strength and full range of motion. LYMPHATICS: No significant lymphadenopathy is noted PSYCHIATRIC: Normal psychiatric evaluation. Course Vital Signs 03/15/21 03/15/21 03/15/21 10:20 10:38 11:19 Temperature 97.5 F L Pulse Rate 104 H 91 Respiratory 22 26 H Rate Blood Pressure 123/88 O2 Sat by Pulse 99 Oximetry 03/15/21 03/15/21 03/15/21 11:31 12:16 13:46 Temperature Pulse Rate 94 91 82 Respiratory 18 20 Rate Blood Pressure 120/64 129/83 O2 Sat by Pulse 93 L 97 Oximetry Medical Decision Making - Medical Decision Making EKG shows sinus tachycardia 101 bpm HI interval 246 dresses 82 QT interval 340 QTC is 440. Patient's EKG shows no ST segment elevation or depression. Chest x-ray shows right-sided pleural effusion. CT of the chest shows a pleural effusion on the right and multiple pulmonary emboli on the left. Patient was started on high-dose heparin. I spoke with Dr. Patel he agreed to admit the patient admitted the patient wrote admitting orders. - Lab Data Result diagrams: 03/15/21 10:36 03/15/21 10:36 Lab Results 03/15/21 03/15/21 03/15/21 Range/Units 10:36 10:36 10:36 WBC 14.2 H (3.8-10.6) k/uL RBC 3.68 L (3.80-5.40) m/uL Hgb 14.5 (11.4-16.0) gm/dL Hct 43.2 (34.0-46.0) % MCV 117.2 H (80.0-100.0) fL MCH 39.3 H (25.0-35.0) pg MCHC 33.5 (31.0-37.0) g/dL RDW 15.9 H (11.5-15.5) % Plt Count 246 (150-450) k/uL MPV 7.9 Neutrophils % (Manual) 89 % Band Neuts % (Manual) 1 % Lymphocytes % (Manual) 6 % Monocytes % (Manual) 5 % Eosinophils % (Manual) 1 % Neutrophils # (Manual) 12.70 H (1.3-7.7) k/uL Lymphocytes # (Manual) 0.85 L (1.0-4.8) k/uL Monocytes # (Manual) 0.71 (0-1.0) k/uL Eosinophils # (Manual) 0.14 (0-0.7) k/uL Nucleated RBCs 1 H (0-0) /100 WBC Manual Slide Review Performed Polychromasia Present Poikilocytosis (manual Present Anisocytosis (manual) Present Macrocytosis Marked A PT (9.0-12.0) sec INR (<1.2) APTT (22.0-30.0) sec D-Dimer (<0.60) mg/L FEU Sodium 138 (137-145) mmol/L Potassium 3.5 (3.5-5.1) mmol/L Chloride 106 (98-107) mmol/L Carbon Dioxide 20 L (22-30) mmol/L Anion Gap 12 mmol/L BUN 14 (7-17) mg/dL Creatinine 0.54 (0.52-1.04) mg/dL Est GFR (CKD-EPI)AfAm >90 (>60 ml/min/1.73 sqM) Est GFR (CKD-EPI)NonAf >90 (>60 ml/min/1.73 sqM) Glucose 165 H (74-99) mg/dL Plasma Lactic Acid Richard 1.6 (0.7-2.0) mmol/L Calcium 8.3 L (8.4-10.2) mg/dL Total Bilirubin 0.6 (0.2-1.3) mg/dL AST 37 H (14-36) U/L ALT 27 (4-34) U/L Alkaline Phosphatase 85 (38-126) U/L Troponin I (0.000-0.034) ng/mL NT-Pro-B Natriuret Pep pg/mL Total Protein 6.6 (6.3-8.2) g/dL Albumin 3.5 (3.5-5.0) g/dL 03/15/21 03/15/21 03/15/21 Range/Units 10:36 10:36 12:07 WBC (3.8-10.6) k/uL RBC (3.80-5.40) m/uL Hgb (11.4-16.0) gm/dL Hct (34.0-46.0) % MCV (80.0-100.0) fL MCH (25.0-35.0) pg MCHC (31.0-37.0) g/dL RDW (11.5-15.5) % Plt Count (150-450) k/uL MPV Neutrophils % (Manual) % Band Neuts % (Manual) % Lymphocytes % (Manual) % Monocytes % (Manual) % Eosinophils % (Manual) % Neutrophils # (Manual) (1.3-7.7) k/uL Lymphocytes # (Manual) (1.0-4.8) k/uL Monocytes # (Manual) (0-1.0) k/uL Eosinophils # (Manual) (0-0.7) k/uL Nucleated RBCs (0-0) /100 WBC Manual Slide Review Polychromasia Poikilocytosis (manual Anisocytosis (manual) Macrocytosis PT 11.7 (9.0-12.0) sec INR 1.1 (<1.2) APTT 21.5 L (22.0-30.0) sec D-Dimer 29.45 H (<0.60) mg/L FEU Sodium (137-145) mmol/L Potassium (3.5-5.1) mmol/L Chloride (98-107) mmol/L Carbon Dioxide (22-30) mmol/L Anion Gap mmol/L BUN (7-17) mg/dL Creatinine (0.52-1.04) mg/dL Est GFR (CKD-EPI)AfAm (>60 ml/min/1.73 sqM) Est GFR (CKD-EPI)NonAf (>60 ml/min/1.73 sqM) Glucose (74-99) mg/dL Plasma Lactic Acid Richard (0.7-2.0) mmol/L Calcium (8.4-10.2) mg/dL Total Bilirubin (0.2-1.3) mg/dL AST (14-36) U/L ALT (4-34) U/L Alkaline Phosphatase (38-126) U/L Troponin I 0.039 H* (0.000-0.034) ng/mL NT-Pro-B Natriuret Pep 1610 pg/mL Total Protein (6.3-8.2) g/dL Albumin (3.5-5.0) g/dL Critical Care Time Critical Care Time: Yes Total Critical Care Time: 35 Disposition Clinical Impression: Pleural effusion, Pulmonary embolism Disposition: ADMITTED IP TO THIS HOSP Referrals: Uriel Yarbrough DO [Primary Care Provider] - 1-2 days Time of Disposition: 14:34
--- NOTE | 2021-03-15 11:18 | XR ---
EXAMINATION TYPE: XR chest 2V DATE OF EXAM: 03/15/2021 COMPARISON: Chest x-ray 03/12/2021 HISTORY: Difficulty breathing, shortness of breath TECHNIQUE: Frontal and lateral views of the chest are obtained. FINDINGS: The previously identified right pleural effusion is again noted with associated obscured r ight hemidiaphragm and right heart border. No evident pneumothorax. Question some patchy basilar dens ity on the left. Postop change noted right shoulder. Heart is likely stable. Patient shows right shou lder arthroplasty change. There is overlying artifact. IMPRESSION: Right pleural effusion and associated atelectasis, correlate to exclude pneumonia, follo w-up to exclude underlying mass
[2021-03-15 11:25] LABS: ALT 27 U/L (4-34); AST 37 U/L (14-36); African American GFR (CKD) >90 (>60 ml/min/1.73 sqM); Albumin 3.5 g/dL (3.5-5.0); Alkaline Phosphatase 85 U/L (38-126); Anion Gap 12 mmol/L; Blood Urea Nitrogen 14 mg/dL (7-17); Calcium 8.3 mg/dL (8.4-10.2); Carbon Dioxide 20 mmol/L (22-30); Chloride 106 mmol/L (98-107); Glucose 165 mg/dL (74-99); Non-African American GFR(CKD) >90 (>60 ml/min/1.73 sqM); Potassium 3.5 mmol/L (3.5-5.1); Sodium 138 mmol/L (137-145); Total Bilirubin 0.6 mg/dL (0.2-1.3); Total Protein 6.6 g/dL (6.3-8.2)
[2021-03-15 11:38] LABS: HCT 43.2 % (34.0-46.0); HGB 14.5 gm/dL (11.4-16.0); MCH 39.3 pg (25.0-35.0); MCHC 33.5 g/dL (31.0-37.0); MCV 117.2 fL (80.0-100.0); Macrocytosis Marked; Mean Platelet Volume 7.9; Platelet Count 246 k/uL (150-450); RBC 3.68 m/uL (3.80-5.40); RDW 15.9 % (11.5-15.5)
[2021-03-15 12:41] LABS: INR 1.1 (<1.2); Partial Thromboplastin Time 21.5 sec (22.0-30.0); Prothrombin Time 11.7 sec (9.0-12.0)
[2021-03-15 13:03] LABS: Band Neutrophils % 1 %; Eosinophils # (M) 0.14 k/uL (0-0.7); Lymphocytes # (M) 0.85 k/uL (1.0-4.8); Monocytes # (M) 0.71 k/uL (0-1.0); Neutrophils % (M) 89 %; Nucleated Red Blood Cells 1 /100 WBC (0-0); Total Cells Counted 200; WBC 14.2 k/uL (3.8-10.6)
[2021-03-15 13:04] LABS: Anisocytosis (M) Present; Poikilocytosis (M) Present; Polychromasia Present
[2021-03-15] MEDS ORDERED: HEPARIN SODIUM 1,000 UN/ML (10ML VL) IV ONE (13:56)
--- NOTE | 2021-03-15 13:57 | CT ---
EXAMINATION TYPE: CT chest angio for PE DATE OF EXAM: 03/15/2021 COMPARISON: CT chest 02/24/2021 HISTORY: Elevated d-dimer, shortness of breath. CT DLP: 370.8 mGycm Automated exposure control for dose reduction was used. CONTRAST: CT Chest for pulmonary embolism performed with with IV Contrast, patient injected with 100 mL of Isov ue 370. Three-dimensional reconstructions performed on an alternate workstation and reviewed FINDINGS: LUNGS: The probable loculated right effusion is again seen with atelectasis, there is some aerated erwin ng in the right upper lobe, some groundglass patchy opacity is present throughout the left lung. MEDIASTINUM: There is satisfactory enhancement of the pulmonary artery and its branches, there are mu ltiple segmental pulmonary emboli present on the left to include the left lower and left upper lobes. There are no greater than 1 cm hilar or mediastinal lymph nodes. No pericardial effusion is seen. AORTA: No additional significant abnormality is seen. OTHER: No additional significant abnormality is seen. IMPRESSION: Multiple left lung pulmonary emboli. Possible early airspace disease.
[2021-03-15] MEDS: HEPARIN SOD,PORK IN 0.45% NACL 25,000 UNIT in 0.45% NACL 1 250ML.BAG IV SCH (14:14)
[2021-03-15] MEDS: IPRATROPIUM-ALBUTEROL 3 ML NEB INHALATION SCH ×2 (17:59→20:48)
--- NOTE | 2021-03-15 18:53 | US ---
EXAMINATION TYPE: US venous doppler duplex LE DATE OF EXAM: 03/15/2021 6:43 PM COMPARISON: US CLINICAL HISTORY: DVT . Hx right knee surgery. Pain in right leg. SIDE PERFORMED: Bilateral TECHNIQUE: The lower extremity deep venous system is examined utilizing real time linear array sonog dk with graded compression, doppler sonography and color-flow sonography. VESSELS IMAGED: Common Femoral Vein Deep Femoral Vein Greater Saphenous Vein * Femoral Vein Popliteal Vein Small Saphenous Vein * Proximal Calf Veins (* superficial vessels) Right Leg: Internal echoes seen within popliteal and prox calf veins. These vein segments appear to compress incompletely and show lack of color flow. Left Leg: Internal echoes seen within popliteal and prox calf veins. These vein segments appear to c ompress incompletely and show lack of color flow. IMPRESSION: Nonocclusive DVT of the bilateral popliteal and proximal calf veins.
--- NOTE | 2021-03-15 20:43 | P.HPIM ---
History of Present Illness H&P Date: 03/15/21 History of present illness: 81-year-old female patient of Dr. Yarbrough with past medical history of thrombocytosis followed Dr. Mitchell the past, history of hyperlipidemia hypertension, chronic back pain, GERD, was hospitalized recentlyfor worsening dyspnea shortness of breath found to have large pleural effusion patient subsequently was diagnosed with adenocarcinoma of the lung. Patient has been seen oncology since then. She presented to the emergency department today at [facility] with worsening dyspnea and shortness of breath for the last 3-4 days with worsening wheezes her symptom has been very severe with minimum exertion been severely sym ptomatic today patient called 911 and ended up coming to [facility] department by EMS was seen and evaluated with her testing including d-dimer was very high patient ended up going for CTA showed multi embolism of the lung. Patient also still showing lung mass. Pleural effusion on the right side as well. Was started on heparin drip consult pulmonary patient seen regularly and admit patient to the hospital for the above problem. From her last admission last time patient had severe shortness of breath was evaluated for pulmonary embolism which was negative but found to have large sided pleural effusion on the right side with negative Doppler the time as well. Patient had thoracentesis of the time came back apparently with malignant pleural effusion. Since then patient was diagnosed with adenocarcinoma. Also patient is known to have history of chronic leukocytosis and thrombocytosis has been seen oncology been treated with hydroxyurea. ROS: Constitutional: Denies chills, Denies fever, Denies lethargy, Denies malaise, Denies poor appetite, Denies weakness, Denies weight loss Eyes: denies decreased vision, denies diplopia, denies discharge, denies pain Ears: deny: decreased hearing Ears, nose, mouth and throat: Denies dental pain, Denies headache, Denies nasal discharge, Denies nose pain Cardiovascular: Denies chest pain, Denies decreased exercise tolerance, Denies edema, Denies high blood pressure, Denies irregular heart beat, Denies palpitations, Denies paroxysmal nocturnal dyspnea, Denies rapid heart beat, Denies shortness of breath Respiratory: Denies congestion, Denies cough, endorses cough with sputum, endorses dyspnea, Denies home oxygen, Denies wheezing Gastrointestinal: Denies abdominal pain, Denies change in bowel habits, Denies coffee ground emesis, Denies early satiety, Denies excessive gas, Denies heartburn, Denies hematemesis, Denies hematochezia, Denies loss of appetite, Denies nausea, Denies vomiting Genitourinary: Denies dysuria, Denies flank pain, Denies kidney stones, Denies menorrhagia, Denies urgency, Denies urinary frequency Musculoskeletal: Endorses gait dysfunction, endorses limitation of motion, Denies morning stiffness, Denies muscle cramps endorses back pain, uses the walker at baseline Integumentary: Denies rash, Denies wounds, Denies brittle nails, Denies change in hair/nails, Denies darkening of skin Neurological: Denies balance difficulties, Denies change in speech, Denies double vision, Denies gait dysfunction, Denies loss of vision, Denies motor disturbance, Denies numbness, Denies paralysis, Denies paresthesias, Denies seizures Psychiatric: Denies anxiety, Denies depression Endocrine: Denies excessive sweating, Denies excessive thirst, Denies high blood sugars, Denies palpitations Hematologic/Lymphatic: Denies easy bruising, Denies lymphadenopathy Social history: Patient is independent, uses cane and walker to mobilize. She's smoked or whole life and has recently cut down to half a pack a day but used to smoke 1 pack a day. Denies alcohol use denies illicit marijuana use Family history: Patient is adopted but does not at mother had stroke and lived up to 94. Does not know her father. She has had brothers and sisters with no significant medical problem Physical exam: - Constitutional General appearance: cooperative, no acute distress, obese - EENT Eyes: anicteric sclerae, PERRLA, normal appearance ENT: hearing grossly normal - Neck Neck: no lymphadenopathy, normal ROM, no other, no rigidity, no stridor, no thyromegaly - Respiratory Respiratory: bilateral: Decreased air entry on the right, dull on percussion on the right, no crackles no wheezing - Cardiovascular Rhythm: regular Heart sounds: normal: S1, S2 Abnormal Heart Sounds: no systolic murmur, no diastolic murmur, no rub, no S3 Gallop, no S4 Gallop, no click, no other - Gastrointestinal General gastrointestinal: normal bowel sounds, soft - Integumentary Integumentary: no rash - Neurologic Neurologic: CNII-XII intact - Musculoskeletal Musculoskeletal: gait normal, strength equal bilaterally - Psychiatric Psychiatric: A&O x's 3, appropriate affect Assessment and plan: 1 acute respiratory failure: Combination of acute multi-pulmonary embolism, COPD exacerbation, lung cancer and CHF. 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 Ex 2 acute multi-pulmonary embolism: Patient be admitted, continue heparin drip for now, we will switch patient to either Lovenox subcutaneous or Eliquis t herapeutic dose of anticoagulation for pulmonary embolism and constipation. 3 adenocarcinoma of the lung: Newly diagnosed patient is seen oncology not a clear whether she is a candidate for chemotherapy or any other treatment. 4 recurrent large sided pleural effusion on the right side: Patient apparently had thoracentesis in the past with pulmonary with her cancer this is most likely what it is no intervention required at this point. 5 chronic obstructive pulmonary disease: Patient be admitted continue O2 continue updraft treatment with DuoNeb and Pulmicort. hypertension: Patient remain on metoprolol total of 75 mg daily. 7 thrombocytosis: Patient has been on hydroxyurea seen oncology. 8 hypothyroidism: Continue patient on levothyroxine 50 g daily. 9 chronic history of peripheral neuropathy: Has been affected by her diagnosis of cancer along with thrombocytosis continue gabapentin as before. 10 severe GERD: Remain on omeprazole 20 mg daily. 11 DVT prophylaxis: Patient will be on anticoagulation. 12 depression: Has been on citalopram 10 mg daily. CODE STATUS: Full code. Admit patient to the inpatient service for more than 2 night stay. Past Medical History Past Medical History: Blood Disorder, GERD/Reflux, Hyperlipidemia, Hypertension, Musculoskeletal Disorder, Osteoarthritis (OA), Thyroid Disorder Additional Past Medical History / Comment(s): seeing Dr Gonzáles for elevated platelets, rt rotator cuff arthropathy, pt stated has'nt had a good appetite nad wt down 30 pounds in a year. History of Any Multi-Drug Resistant Organisms: None Reported Past Surgical History: Appendectomy, Bladder Surgery, Section, Cholecystectomy, Hysterectomy, Joint Replacement, Orthopedic Surgery Additional Past Surgical History / Comment(s): right knee replaced x 2,parathyroidectomy,cataract surg., arthroscopy right shoulder, polyps removed from throat. 04-21-15 rt reverse total shoulder athroplsty, bilateral cataract surgery, appendectomy, 3, total abdominal hysterectomy and bilateral salpingo-oophorectomy. Past Anesthesia/Blood Transfusion Reactions: Motion Sickness, Postoperative Nausea & Vomiting (PONV) Additional Past Anesthesia/Blood Transfusion Reaction / Comment(s): only sick once w/anesthesia Past Psychological History: Anxiety Additional Psychological History / Comment(s): has smoked for 50 yrs. Smoking Status: Never smoker Past Alcohol Use History: None Reported Past Drug Use History: None Reported - Past Family History Father History Unknown: Yes Family Medical History: Unable to Obtain Mother History Unknown: Yes Family Medical History: Unable to Obtain Medications and Allergies Home Medications Medication Instructions Recorded Confirmed Type Levothyroxine Sodium [Synthroid] 50 mcg PO DAILY 04/08/14 03/15/21 History Omeprazole 20 mg PO HS 04/08/14 03/15/21 History Vitamin B Complex 1 cap PO DAILY 04/13/15 03/15/21 History Estradiol 1 mg PO DAILY 04/21/15 03/15/21 History Gabapentin [Neurontin] 100 mg PO HS 03/18/20 03/15/21 History Hydroxyurea 500 mg PO HS 03/18/20 03/15/21 History Hydroxyurea 500 mg PO SUMOTU 03/18/20 03/15/21 History Metoprolol Succinate [Toprol XL] 25 mg PO DAILY 03/18/20 03/15/21 History Metoprolol Succinate [Toprol XL] 50 mg PO HS 03/18/20 03/15/21 History ALPRAZolam [Xanax] 1 mg PO HS 02/24/21 03/15/21 History Escitalopram [Lexapro] 10 mg PO DAILY 02/24/21 03/15/21 History Multivit-Min/Iron/Folic/Lutein 1 tab PO DAILY 02/24/21 03/15/21 History [Centrum Silver Women Tablet] Aspirin EC [Ecotrin] 325 mg PO DAILY 03/15/21 03/15/21 History Cetirizine HCl [Zyrtec] 10 mg PO DAILY 03/15/21 03/15/21 History Ergocalciferol [Vitamin D2 (1250 1,250 mcg PO TU 03/15/21 03/15/21 History Mcg = 88085 Iu)] Allergies Allergy/AdvReac Type Severity Reaction Status Date / Time naproxen Allergy Unknown Verified 03/15/21 11:52 Sulfa (Sulfonamide Allergy Rash/Hives Verified 03/15/21 11:52 Antibiotics) Physical Exam Vitals: Vital Signs Temp Pulse Resp BP Pulse Ox 03/15/21 18:09 81 03/15/21 18:00 77 03/15/21 17:18 78 20 128/73 96 03/15/21 15:00 77 20 150/67 95 03/15/21 13:46 82 20 129/83 97 03/15/21 12:16 91 18 120/64 93 L 03/15/21 11:31 94 03/15/21 11:19 91 03/15/21 10:38 26 H 03/15/21 10:20 97.5 F L 104 H 22 123/88 99 Intake and Output 03/15/21 03/15/21 03/15/21 06:59 14:59 22:59 Other: Weight 81.193 kg Results CBC & Chem 7: 03/15/21 10:36 03/15/21 10:36 Labs: Abnormal Lab Results - Last 24 Hours (Table) 03/15/21 03/15/21 03/15/21 Range/Units 10:36 10:36 10:36 WBC 14.2 H (3.8-10.6) k/uL RBC 3.68 L (3.80-5.40) m/uL MCV 117.2 H (80.0-100.0) fL MCH 39.3 H (25.0-35.0) pg RDW 15.9 H (11.5-15.5) % Neutrophils # (Manual) 12.70 H (1.3-7.7) k/uL Lymphocytes # (Manual) 0.85 L (1.0-4.8) k/uL Nucleated RBCs 1 H (0-0) /100 WBC Macrocytosis Marked A APTT (22.0-30.0) sec D-Dimer (<0.60) mg/L FEU Carbon Dioxide 20 L (22-30) mmol/L Glucose 165 H (74-99) mg/dL Calcium 8.3 L (8.4-10.2) mg/dL AST 37 H (14-36) U/L Troponin I 0.039 H* (0.000-0.034) ng/mL 03/15/ Range/Units 12:07 WBC (3.8-10.6) k/uL RBC (3.80-5.40) m/uL MCV (80.0-100.0) fL MCH (25.0-35.0) pg RDW (11.5-15.5) % Neutrophils # (Manual) (1.3-7.7) k/uL Lymphocytes # (Manual) (1.0-4.8) k/uL Nucleated RBCs (0-0) /100 WBC Macrocytosis APTT 21.5 L (22.0-30.0) sec D-Dimer 29.45 H (<0.60) mg/L FEU Carbon Dioxide (22-30) mmol/L Glucose (74-99) mg/dL Calcium (8.4-10.2) mg/dL AST (14-36) U/L Troponin I (0.000-0.034) ng/mL
[2021-03-15] MEDS: METOPROLOL SUCCINATE (ER) 50 MG TAB.ER.24H PO SCH (22:39)
[2021-03-15] MEDS: ALPRAZolam 0.5 MG TAB PO SCH (22:40)
[2021-03-15] MEDS: HYDROXYUREA 500 MG CAP PO SCH ×2 (22:40→22:41)
[2021-03-15] MEDS: PANTOPRAZOLE 40 MG TABLET PO SCH (22:40)
[2021-03-15] MEDS: GABAPENTIN 100 MG CAP PO SCH (22:40)
[2021-03-15] MEDS ORDERED: HYDROmorphone 0.5 MG/0.5 ML SYRINGE IVP STA (22:49)
[2021-03-16] MEDS: LEVOTHYROXINE 50 MCG TAB PO SCH (06:17)
[2021-03-16] MEDS: LORATADINE 10 MG TAB PO SCH (07:51)
[2021-03-16] MEDS: ESCITALOPRAM 10 MG TAB PO SCH (07:51)
[2021-03-16] MEDS: MULTIVITAMINS, THERA 1 EACH TAB PO SCH (07:51)
[2021-03-16] MEDS: ASPIRIN 325 MG TAB PO SCH (07:51)
[2021-03-16] MEDS: METOPROLOL SUCCINATE (ER) 25 MG TAB.ER.24H PO SCH (07:51)
[2021-03-16] MEDS ORDERED: ERGOCALCIFEROL 1,250 MCG (50,000 IU) CAPSULE PO SCH (09:00)
[2021-03-16] MEDS ORDERED: NON FORMULARY DRUG (Vitamin B Complex [Vitamin B Complex] 1 EACH Capsule) PO SCH (09:00)
[2021-03-16] MEDS: HEPARIN SOD,PORK IN 0.45% NACL 25,000 UNIT in 0.45% NACL 1 250ML.BAG IV SCH (09:05)
[2021-03-16] MEDS: IPRATROPIUM-ALBUTEROL 3 ML NEB INHALATION SCH ×4 (09:20→20:01)
--- NOTE | 2021-03-16 12:55 | P.PN ---
Subjective Progress Note Date: 03/16/21 History of present illness: 81-year-old female patient of Dr. Yarbrough with past medical history of thrombocytosis followed Dr. Mitchell the past, history of hyperlipidemia hypertension, chronic back pain, GERD, was hospitalized recentlyfor worsening dyspnea shortness of breath found to have large pleural effusion patient subsequently was diagnosed with adenocarcinoma of the lung. Patient has been seen oncology since then. She presented to the emergency department today at [facility] with worsening dyspnea and shortness of breath for the last 3-4 days with worsening wheezes her symptom has been very severe with minimum exertion been severely symptomatic today patient called 911 and ended up coming to [facility] department by EMS was seen and evaluated with her testing including d-dimer was very high patient ended up going for CTA showed multi embolism of the lung. Patient also still showing lung mass. Pleural effusion on the right side as well. Was started on heparin drip consult pulmonary patient seen regularly and admit patient to the hospital for the above problem. From her last admission last time patient had severe shortness of breath was evaluated for pulmonary embolism which was negative but found to have large sided pleural effusion on the right side with negative Doppler the time as well. Patient had thoracentesis of the time came back apparently with malignant pleural effusion. Since then patient was diagnosed with adenocarcinoma. Also patient is known to have history of chronic leukocytosis and thrombocytosis has been seen oncology been treated with hydroxyurea. 03/16: Patient is on 3 L nasal cannula with pulse ox of 97% she is been afebrile, heart rate in the 60s and 70s, blood pressure 127/61. Patient states her breathing status is stable as long as she is sitting. She is complaining of back pain for which Tylenol and [place] will be added. She is requesting to be a DO NOT RESUSCITATE. Ultrasound of the bilateral lower extremity is positive for DVT bilaterally of the popliteal proximal calf veins. Consults in place for pulmonary medicine and oncology consult added. Patient is currently on heparin drip. ROS: Constitutional: Denies chills, Denies fever, Denies lethargy, Denies malaise, Denies poor appetite, Denies weakness, Denies weight loss Eyes: denies decreased vision, denies diplopia, denies discharge, denies pain Ears: deny: decreased hearing Ears, nose, mouth and throat: Denies dental pain, Denies headache, Denies nasal discharge, Denies nose pain Cardiovascular: Denies chest pain, Denies decreased exercise tolerance, Denies edema, Denies high blood pressure, Denies irregular heart beat, Denies palpitations, Denies paroxysmal nocturnal dyspnea, Denies rapid heart beat, Denies shortness of breath Respiratory: Denies congestion, Denies cough, endorses cough with sputum, endorses dyspnea, Denies home oxygen, Denies wheezing Gastrointestinal: Denies abdominal pain, Denies change in bowel habits, Denies coffee ground emesis, Denies early satiety, Denies excessive gas, Denies heartburn, Denies hematemesis, Denies hematochezia, Denies loss of appetite, Denies nausea, Denies vomiting Genitourinary: Denies dysuria, Denies flank pain, Denies kidney stones, Denies menorrhagia, Denies urgency, Denies urinary frequency Musculoskeletal: Endorses gait dysfunction, endorses limitation of motion, Denies morning stiffness, Denies muscle cramps endorses back pain, uses the walker at baseline Integumentary: Denies rash, Denies wounds, Denies brittle nails, Denies change in hair/nails, Denies darkening of skin Neurological: Denies balance difficulties, Denies change in speech, Denies double vision, Denies gait dysfunction, Denies loss of vision, Denies motor disturbance, Denies numbness, Denies paralysis, Denies paresthesias, Denies seizures Psychiatric: Denies anxiety, Denies depression Endocrine: Denies excessive sweating, Denies excessive thirst, Denies high blood sugars, Denies palpitations Hematologic/Lymphatic: Denies easy bruising, Denies lymphadenopathy Physical exam: - Constitutional General appearance: cooperative, no acute distress, obese - EENT Eyes: anicteric sclerae, PERRLA, normal appearance ENT: hearing grossly normal - Neck Neck: no lymphadenopathy, normal ROM, no other, no rigidity, no stridor, no t hyromegaly - Respiratory Respiratory: bilateral: Decreased air entry on the right, dull on percussion on the right, no crackles no wheezing - Cardiovascular Rhythm: regular Heart sounds: normal: S1, S2 Abnormal Heart Sounds: no systolic murmur, no diastolic murmur, no rub, no S3 Gallop, no S4 Gallop, no click, no other - Gastrointestinal General gastrointestinal: normal bowel sounds, soft - Integumentary Integumentary: no rash - Neurologic Neurologic: CNII-XII intact - Musculoskeletal Musculoskeletal: gait normal, strength equal bilaterally - Psychiatric Psychiatric: A&O x's 3, appropriate affect Assessment and plan: 1 acute respiratory failure: Combination of acute multi-pulmonary embolism with bilateral lower extremity DVT, COPD exacerbation, lung cancer and CHF. Patient is currently on heparin drip, continue DuoNeb treatments 4 times daily, consult in place with pulmonary medicine in consult with oncology added. 2 acute multi-pulmonary embolism: Patient be admitted, continue heparin drip for now, we will switch patient to either Lovenox subcutaneous or Eliquis therapeutic dose of anticoagulation for pulmonary embolism and constipation. Consult added for oncology. 3 adenocarcinoma of the lung: Newly diagnosed patient is seen oncology not a clear whether she is a candidate for chemotherapy or any other treatment. 4 recurrent large sided pleural effusion on the right side: Patient apparently had thoracentesis in the past with pulmonary with her cancer this is most likely what it is no intervention required at this point. 5 chronic obstructive pulmonary disease: Patient be admitted continue O2 continue updraft treatment with DuoNeb and Pulmicort. hypertension: Patient remain on metoprolol total of 75 mg daily. 7 thrombocytosis: Patient has been on hydroxyurea seen oncology. 8 hypothyroidism: Continue patient on levothyroxine 50 g daily. 9 chronic history of peripheral neuropathy: Has been affected by her diagnosis of cancer along with thrombocytosis continue gabapentin as before. 10 severe GERD: Remain on omeprazole 20 mg daily. 11 DVT prophylaxis: Patient will be on anticoagulation. 12 depression: Has been on citalopram 10 mg daily. CODE STATUS: Full code. Discharge Plan TBD. Most likely return home Impression and plan of care have been directed as dictated by the signing physician. Tish Baldwin nurse practitioner acting as scribe for signing physician. Objective - Vital Signs Vital signs: Vital Signs Temp 97.9 F 03/16/21 08:00 Pulse 72 03/16/21 09:33 Resp 18 03/16/21 08:00 BP 135/63 03/16/21 08:00 Pulse Ox 95 03/16/21 08:00 Intake & Output 03/15/21 03/16/21 03/16/21 18:59 06:59 18:59 Intake Total 196.124 30.082 Balance 196.124 30.082 Weight 81.193 kg 77.3 kg Intake: Intake, IV Titration 196.124 30.082 Amount Heparin Sod,Pork in 0.45% 196.124 30.082 NaCl 25,000 unit In 0.45 % NaCl 1 250ml.bag @ 18 UNITS/KG/HR 14.615 mls/hr IV .[id number] MERISSA Rx#: [id number] Oral 0 Other: # Voids 1 # Bowel Movements 0 - Labs CBC & Chem 7: 03/15/21 10:36 03/15/21 10:36 Labs: Abnormal Lab Results - Last 24 Hours (Table) 03/15/21 03/15/21 03/15/21 Range/Units 10:36 10:36 10:36 WBC 14.2 H (3.8-10.6) k/uL RBC 3.68 L (3.80-5.40) m/uL MCV 117.2 H (80.0-100.0) fL MCH 39.3 H (25.0-35.0) pg RDW 15.9 H (11.5-15.5) % Neutrophils # (Manual) 12.70 H (1.3-7.7) k/uL Lymphocytes # (Manual) 0.85 L (1.0-4.8) k/uL Nucleated RBCs 1 H (0-0) /100 WBC Macrocytosis Marked A APTT (22.0-30.0) sec D-Dimer (<0.60) mg/L FEU Carbon Dioxide 20 L (22-30) mmol/L Glucose 165 H (74-99) mg/dL Calcium 8.3 L (8.4-10.2) mg/dL AST 37 H (14-36) U/L Troponin I 0.039 H* (0.000-0.034) ng/mL 03/15/21 03/15/21 03/16/21 Range/Units 12:07 20:54 04:47 WBC (3.8-10.6) k/uL RBC (3.80-5.40) m/uL MCV (80.0-100.0) fL MCH (25.0-35.0) pg RDW (11.5-15.5) % Neutrophils # (Manual) (1.3-7.7) k/uL Lymphocytes # (Manual) (1.0-4.8) k/uL Nucleated RBCs (0-0) /100 WBC Macrocytosis APTT 21.5 L 143.4 H* 67.4 H (22.0-30.0) sec D-Dimer 29.45 H (<0.60) mg/L FEU Carbon Dioxide (22-30) mmol/L Glucose (74-99) mg/dL Calcium (8.4-10.2) mg/dL AST (14-36) U/L Troponin I (0.000-0.034) ng/mL
[2021-03-16 13:44] VITALS: BMI 29.2
--- NOTE | 2021-03-16 14:16 | P.CNPUL ---
History of Present Illness Consult date: 03/16/21 Requesting physician: Meño Patel Reason for consult: dyspnea, pleural effusion, abnormal CXR/CT Chief complaint: Shortness of breath History of present illness: This is a 81-year-old female patient of Dr. Yarbrough with past history of 60+ year smoking history which is currently in remission, COPD, on home oxygen since her most recent admission in February 2021, newly diagnosed lung cancer. Patient was recently hospitalized in February 2021 and we saw the patient in consultation, and patient had a large right-sided pleural effusion which was loculated. Prior to the patient was treated for pneumonia that was not improving with several rounds of antibiotics. Interventional radiology was consulted and did a right-sided thoracentesis and removed 750 mL of dark colored fluid, which was sent for cytology and analysis. Pleural fluid analysis showed exudative fluid and cytology was positive for pulmonary adenocarcinoma. Pleural fluid cultures showed no organisms. Patient qualified for home oxygen, she was sent home on 2 L, she was medically optimized and discharged home on 03/01/2021 with instructions to follow-up with Dr. Cutler in the office on 03/12/2021, she was supposed to see Dr. Gonzáles from medical oncology. Patient was seen in the office on 03/12/[address] Cutler, and informed that she has stage IV pulmonary adenocarcinoma. She was having some ongoing shortness of breath and the chest x-ray was showing recurrence of the right-sided pleural effusion with some right basilar atelectasis and loculated right-sided pleural effusion. Patient was supposed to see Dr. Alex mason on an outpatient basis for insertion of a Pleurx catheter. She was supposed to be scheduled for an outpatient PET scan as well. On 03/15/2021 patient presented to the emergency department with worsening shortness of breath, and patient was having a difficult time ambulating. She lives by herself in an apartment. Chest x-ray showed right pleural effusion and associated atelectasis. CTA chest was completed related to elevated d-dimer of 29.45, and it showed multiple left lung pulmonary emboli and possible early airspace disease. Venous Dopplers showed nonocclusive DVT in bi lateral popliteal and proximal calf veins. Patient denies any chest pain, no hemoptysis, no fever or chills, no lightheadedness, no cough or phlegm production. No swelling in lower extremities, no calf tenderness. She was started on heparin infusion. And this consult was initiated Review of Systems All systems: negative Constitutional: Reports weakness, Denies chills, Denies fever Eyes: denies blurred vision, denies pain Ears, nose, mouth and throat: Denies headache, Denies sore throat Cardiovascular: Denies chest pain, Denies shortness of breath Respiratory: Reports dyspnea, Reports home oxygen, Reports respiratory infecti ons, Denies cough Gastrointestinal: Denies abdominal pain, Denies diarrhea, Denies nausea, Denies vomiting Genitourinary: Denies dysuria, Denies hematuria Musculoskeletal: Denies myalgias Integumentary: Denies pruritus, Denies rash Neurological: Denies numbness, Denies weakness Psychiatric: Denies anxiety, Denies depression Endocrine: Denies fatigue, Denies weight change Past Medical History Past Medical History: Blood Disorder, Cancer, GERD/Reflux, Hyperlipidemia, Hypertension, Musculoskeletal Disorder, Osteoarthritis (OA), Pulmonary Embolus (PE), Thyroid Disorder Additional Past Medical History / Comment(s): seeing Dr Gonzáles for elevated platelets, rt rotator cuff arthropathy, pt stated has'nt had a good appetite nad wt down 30 pounds in a year. History of Any Multi-Drug Resistant Organisms: None Reported Past Surgical History: Appendectomy, Bladder Surgery, Section, Cholecystectomy, Hysterectomy, Joint Replacement, Orthopedic Surgery Additional Past Surgical History / Comment(s): right knee replaced x 2,parathyroidectomy,cataract surg., arthroscopy right shoulder, polyps removed from throat. 04-21-15 rt reverse total shoulder athroplsty, bilateral cataract surgery, appendectomy, 3, total abdominal hysterectomy and bilateral salpingo-oophorectomy. Past Anesthesia/Blood Transfusion Reactions: Motion Sickness, Postoperative Nausea & Vomiting (PONV) Additional Past Anesthesia/Blood Transfusion Reaction / Comment(s): only sick once w/anesthesia Past Psychological History: Anxiety Smoking Status: Former smoker Past Alcohol Use History: None Reported Past Drug Use History: None Reported Additional Drug Use History / Comment(s): pt has smoked since she was 17 years old. Recently quit around , approx 3 weeks ago. At that time she was dx with adenocarcinoma in lungs. - Past Family History Father History Unknown: Yes Family Medical History: Unable to Obtain Mother History Unknown: Yes Family Medical History: Unable to Obtain Medications and Allergies Home Medications Medication Instructions Recorded Confirmed Type Levothyroxine Sodium [Synthroid] 50 mcg PO DAILY 04/08/14 03/15/21 History Omeprazole 20 mg PO HS 04/08/14 03/15/21 History Vitamin B Complex 1 cap PO DAILY 04/13/15 03/15/21 History Estradiol 1 mg PO DAILY 04/21/15 03/15/21 History Gabapentin [Neurontin] 100 mg PO HS 03/18/20 03/15/21 History Hydroxyurea 500 mg PO HS 03/18/20 03/15/21 History Hydroxyurea 500 mg PO SUMOTU 03/18/20 03/15/21 History Metoprolol Succinate [Toprol XL] 25 mg PO DAILY 03/18/20 03/15/21 History Metoprolol Succinate [Toprol XL] 50 mg PO HS 03/18/20 03/15/21 History ALPRAZolam [Xanax] 1 mg PO HS 02/24/21 03/15/21 History Escitalopram [Lexapro] 10 mg PO DAILY 02/24/21 03/15/21 History Multivit-Min/Iron/Folic/Lutein 1 tab PO DAILY 02/24/21 03/15/21 History [Centrum Silver Women Tablet] Aspirin EC [Ecotrin] 325 mg PO DAILY 03/15/21 03/15/21 History Cetirizine HCl [Zyrtec] 10 mg PO DAILY 03/15/21 03/15/21 History Ergocalciferol [Vitamin D2 (1250 1,250 mcg PO TU 03/15/21 03/15/21 History Mcg = 13011 Iu)] Allergies Allergy/AdvReac Type Severity Reaction Status Date / Time naproxen Allergy Unknown Verified 03/15/21 11:52 Sulfa (Sulfonamide Allergy Rash/Hives Verified 03/15/21 11:52 Antibiotics) Physical Exam Vitals: Vital Signs Temp Pulse Pulse Resp BP BP Pulse Ox 03/16/21 13:37 66 18 03/16/21 12:19 74 03/16/21 12:11 74 03/16/21 12:00 97.5 F L 66 18 127/61 97 03/16/21 09:33 72 03/16/21 09:20 70 03/16/21 08:00 97.9 F 69 18 135/63 95 03/16/21 04:00 97.6 F 69 20 132/69 98 03/16/21 02:00 90 22 03/16/21 00:00 98.0 F 92 22 128/57 94 L 03/15/21 21:02 71 03/15/21 20:48 64 03/15/21 20:47 64 20 126/57 94 L 03/15/21 20:00 98.9 F 82 20 149/67 95 03/15/21 18:09 81 03/15/21 18:00 77 03/15/21 17:18 78 20 128/73 96 03/15/21 15:00 77 20 150/67 95 Intake and Output 03/15/21 03/16/21 03/16/21 22:59 06:59 14:59 Intake Total 109.856 86.268 150.082 Balance 109.856 86.268 150.082 Intake: Intake, IV Titration 109.856 86.268 30.082 Amount Heparin Sod,Pork in 0.45% 109.856 86.268 30.082 NaCl 25,000 unit In 0.45 % NaCl 1 250ml.bag @ 18 UNITS/KG/HR 14.615 mls/hr IV .[id number] PENDING SALE TO [facility] Rx#: [id number] Oral 120 Other: # Voids 1 # Bowel Movements 0 Weight 81.193 kg 77.3 kg 77.3 kg GENERAL EXAM: Alert, very pleasant, 81-year-old white female, on 3 L of oxygen a pulse ox of 97% comfortable in no apparent distress. HEAD: Normocephalic/atraumatic. EYES: Normal reaction of pupils, equal size. Conjunctiva pink, sclera white. NOSE: Clear with pink turbinates. THROAT: No erythema or exudates. NECK: No masses, no JVD, no thyroid enlargement, no adenopathy. CHEST: No chest wall deformity. Symmetrical expansion. LUNGS: Equal air entry with diminished breath sounds on the right CVS: Regular rate and rhythm, normal S1 and S2, no gallops, no murmurs, no rubs ABDOMEN: Soft, nontender. No hepatosplenomegaly, normal bowel sounds, no guarding or rigidity. EXTREMITIES: No clubbing, no edema, no cyanosis, 2+ pulses and upper and lower extremities. MUSCULOSKELETAL: Muscle strength and tone normal. SPINE: No scoliosis or deformity SKIN: No rashes CENTRAL NERVOUS SYSTEM: Alert and oriented -3. No focal deficits, tone is normal in all 4 extremities. PSYCHIATRIC: Alert and oriented -3. Appropriate affect. Intact judgment and insight. Results - Laboratory Findings CBC and BMP: 03/15/21 10:36 03/15/21 10:36 PT/INR, D-dimer PT 11.7 sec (9.0-12.0) 03/15/21 12:07 INR 1.1 (<1.2) 03/15/21 12:07 D-Dimer 29.45 mg/L FEU (<0.60) H 03/15/21 12:07 Abnormal lab findings: Abnormal Labs 03/15/21 03/15/21 03/15/21 10:36 10:36 10:36 WBC 14.2 H RBC 3.68 L MCV 117.2 H MCH 39.3 H RDW 15.9 H Neutrophils # (Manual) 12.70 H Lymphocytes # (Manual) 0.85 L Nucleated RBCs 1 H Macrocytosis Marked A APTT D-Dimer Carbon Dioxide 20 L Glucose 165 H Calcium 8.3 L AST 37 H Troponin I 0.039 H* 03/15/21 03/15/21 03/16/21 12:07 20:54 04:47 WBC RBC MCV MCH RDW Neutrophils # (Manual) Lymphocytes # (Manual) Nucleated RBCs Macrocytosis APTT 21.5 L 143.4 H* 67.4 H D-Dimer 29.45 H Carbon Dioxide Glucose Calcium AST Troponin I 03/16/21 11:35 WBC RBC MCV MCH RDW Neutrophils # (Manual) Lymphocytes # (Manual) Nucleated RBCs Macrocytosis APTT 58.2 H D-Dimer Carbon Dioxide Glucose Calcium AST Troponin I - Diagnostic Findings Chest x-ray: report reviewed, image reviewed CT scan - chest: report reviewed, image reviewed Assessment and Plan Plan: Assessment: #1. Acute hypoxic respiratory failure related to recurrent right-sided malignant pleural effusion and acute pulmonary emboli #2. Acute pulmonary emboli in the left lung, and acute nonocclusive bilateral popliteal DVTs and proximal calf veins #3. Newly diagnosed pulmonary adenocarcinoma stage IV, the diagnosis was made from the cytology of the right-sided pleural fluid on 03/01/2021, that showed pulmonary adenocarcinoma. Patient was referred to medical oncology, and was supposed to see Dr. Mitchell in consultation and complete an outpatient PET scan #4. Extensive history of smoking, 60+ years, in remission for the past 4 weeks #5. Hypertension #6. Hyperlipidemia #7. COPD, has been placed on oxygen recently after last hospitalization #8. Hypothyroidism #9. Chronic back pain with peripheral neuropathy #10. Depression Plan: Chest x-ray and CT angiogram of the chest reviewed with Dr. Islas Consult CT surgery for possibility of Pleurx catheter placement for recurrent malignant right-sided pleural effusion We'll continue on heparin infusion until after the Pleurx catheter has been placed and then patient can be switched to Factor Xa inhibitor Continue nebulized bronchodilators, will obtain pro-calcitonin level, although infection is not suspected Medical oncology has been placed on consultation We'll continue to follow her course Overall prognosis is guarded CODE STATUS is DO NOT RESUSCITATE I performed a history & physical examination of the patient and discussed their management with my nurse practitioner, Huyen Dsouza. I reviewed the nurse practitioner's note and agree with the documented findings and plan of care. Lung sounds are positive for dim breath sounds on left throughout the lung bentley. The findings and the impression was discussed with the patient. I attest to the documentation by the nurse practitioner. Time with Patient: Greater than 30
--- NOTE | 2021-03-16 14:29 | P.GSCN ---
History of Present Illness Consult date: 03/16/21 Reason for Consult: Recurrent malignant right-sided pleural effusion Requesting physician: Philip Islas History of present illness: This is a 81-year-old female patient who follows on an outpatient basis with Dr. Yarbrough for primary care and Dr. Cutler for pulmonology. She has a history of hypertension, hypothyroid, thrombocytosis, chronic tobacco dependence with recent cessation and recent diagnosis of pulmonary adenocarcinoma. This patient was recently hospitalized for shortness of breath, she underwent right-sided thoracentesis 03/01/2021 with removal of 750 mL of fluid, cytology came back positive for pulmonary adenocarcinoma. She was seen in the office by Dr. Cutler last Monday with repeat chest x-ray in the office demonstrating recurrence of her effusion. She was to see Dr. Fernandes this Monday in the office for consultation to place Pleurx catheter, however over the past couple of days she has been increasingly short of breath to the point where even minimal exertion causes dyspnea. She presented back to [facility] emergency room yesterday, CTA of the chest demonstrated pulmonary emboli in the left lung as well as right-sided effusion. In addition she was noted to have bilateral lower extremity DVTs. She was admitted for evaluation and treatment and placed on IV heparin. Consultation was placed to pulmonology who in turn consulted cardiothoracic surgery for Pleurx catheter placement. Of note she has not seen Dr. Mitchell yet for her diagnosis of lung cancer. Review of Systems Review of systems was completed and was negative except as noted - Respiratory Reports as per HPI, Reports dyspnea, Reports home oxygen, Reports wheezing Past Medical History Past Medical History: Blood Disorder, Cancer, GERD/Reflux, Hyperlipidemia, Hypertension, Musculoskeletal Disorder, Osteoarthritis (OA), Pulmonary Embolus (PE), Thyroid Disorder Additional Past Medical History / Comment(s): seeing Dr Gonzáles for elevated platelets, pt stated has'nt had a good appetite nad wt down 30 pounds in a year. History of Any Multi-Drug Resistant Organisms: None Reported Past Surgical History: Appendectomy, Bladder Surgery, Section, Cholecystectomy, Hysterectomy, Joint Replacement, Orthopedic Surgery Additional Past Surgical History / Comment(s): right knee replaced x 2,parathyroidectomy,cataract surg., arthroscopy right shoulder, polyps removed from throat. 04-21-15 rt reverse total shoulder athroplsty, bilateral cataract surgery, appendectomy, 3, total abdominal hysterectomy and bilateral salpingo-oophorectomy. Past Anesthesia/Blood Transfusion Reactions: Motion Sickness, Postoperative Nausea & Vomiting (PONV) Additional Past Anesthesia/Blood Transfusion Reaction / Comm: only sick once w/anesthesia Past Psychological History: Anxiety Smoking Status: Former smoker Past Alcohol Use History: None Reported Past Drug Use History: None Reported Additional Drug Use History / Comment(s): pt has smoked since she was 17 years old. Recently quit around , approx 3 weeks ago. At that time she was dx with adenocarcinoma in lungs. - Past Family History Father History Unknown: Yes Family Medical History: Unable to Obtain Additional Family Medical History / Comment(s): Patient is adopted Mother History Unknown: Yes Family Medical History: Unable to Obtain Additional Family Medical History / Comment(s): Patient is adopted although she has recently found out her biological mother of a stroke at 94 years old Medications and Allergies Home Medications Medication Instructions Recorded Confirmed Type Levothyroxine Sodium [Synthroid] 50 mcg PO DAILY 04/08/14 03/15/21 History Omeprazole 20 mg PO HS 04/08/14 03/15/21 History Vitamin B Complex 1 cap PO DAILY 04/13/15 03/15/21 History Estradiol 1 mg PO DAILY 04/21/15 03/15/21 History Gabapentin [Neurontin] 100 mg PO HS 03/18/20 03/15/21 History Hydroxyurea 500 mg PO HS 03/18/20 03/15/21 History Hydroxyurea 500 mg PO SUMOTU 03/18/20 03/15/21 History Metoprolol Succinate [Toprol XL] 25 mg PO DAILY 03/18/20 03/15/21 History Metoprolol Succinate [Toprol XL] 50 mg PO HS 03/18/20 03/15/21 History ALPRAZolam [Xanax] 1 mg PO HS 02/24/21 03/15/21 History Escitalopram [Lexapro] 10 mg PO DAILY 02/24/21 03/15/21 History Multivit-Min/Iron/Folic/Lutein 1 tab PO DAILY 02/24/21 03/15/21 History [Centrum Silver Women Tablet] Aspirin EC [Ecotrin] 325 mg PO DAILY 03/15/21 03/15/21 History Cetirizine HCl [Zyrtec] 10 mg PO DAILY 03/15/21 03/15/21 History Ergocalciferol [Vitamin D2 (1250 1,250 mcg PO TU 03/15/21 03/15/21 History Mcg = 45941 Iu)] Allergies Allergy/AdvReac Type Severity Reaction Status Date / Time naproxen Allergy Unknown Verified 03/15/21 11:52 Sulfa (Sulfonamide Allergy Rash/Hives Verified 03/15/21 11:52 Antibiotics) Surgical - Exam Vital Signs Temp Pulse Resp BP Pulse Ox 97.5 F L 104 H 22 123/88 99 03/15/21 10:20 03/15/21 10:20 03/15/21 10:20 03/15/21 10:20 03/15/21 10:20 CONSTITUTIONAL: Awake and alert, appears comfortable although slightly dyspneic with conversation, cooperative, well-developed, well-nourished, no pain, no acute distress EYES: Pupils equal, round, reactive to light, normal ocular movement ENT: Moist mucous membranes without oral lesions present NECK: No masses, no bruits, trachea midline RESPIRATORY: Lungs sounds diminished bilaterally with expiratory wheezes present, right greater than left. Respirations even, slightly labored with conversation. Currently on 3 L nasal cannula with oxygen saturation 97%. Strong cough. CARDIOVASCULAR: S1, S2 present. Regular rate and rhythm, sinus rhythm on telemetry. Palpable peripheral pulses bilaterally. No edema present. GASTROINTESTINAL: Abdomen soft, nontender, nondistended without masses or organomegaly noted. There is no rebound or guarding present. Active bowel sounds present 4 quadrants. GENITOURINARY: Deferred INTEGUMENTARY: Skin is warm and dry. Multiple areas on both arms of ecchymosis with a couple of superficial skin tears NEUROLOGIC: Cranial nerves II through XII intact, normal coordination, no ob vious motor or sensory deficits, speech is normal MUSKULOSKELETAL: Able to move all extremities, strength equal bilaterally, normal posture PSYCHIATRIC: Alert and oriented to person place and time, appropriate affect, intact judgment and insight Results - Labs 03/15/21 10:36 03/15/21 10:36 Abnormal Lab Results - Last 24 Hours (Table) 03/15/21 03/16/21 03/16/21 Range/Units 20:54 04:47 11:35 APTT 143.4 H* 67.4 H 58.2 H (22.0-30.0) sec Microbiology - Last 24 Hours (Table) 03/15/21 10:15 Blood Culture - Preliminary Blood No Growth after 24 hours 03/15/21 10:30 Blood Culture - Preliminary Blood No Growth after 24 hours - Imaging Chest x-ray: report reviewed, image reviewed CT scan - chest: report reviewed, image reviewed EKG: image reviewed Assessment and Plan Assessment: 1. Recurrent malignant right-sided pleural effusion, last thoracentesis 03/01/2021 with removal of 750 mL fluid positive for pulmonary adenocarcinoma 2. Left-sided pulmonary emboli, bilateral lower extremity DVTs 3. Acute on chronic hypoxic respiratory failure 4. COPD, on home oxygen at 2 L nasal cannula 5. Chronic tobacco dependence with recent smoking cessation 6. History of hypertension 7. Hypothyroid 8. History of thrombocytosis, currently on Hydrea, follows outpatient with Dr. Mitchell Plan: The patient was seen and examined at the bedside. Chart/diagnostics were reviewed. The case will be discussed in detail with cardiothoracic surgeon. The usual perioperative course of Pleurx catheter placement was discussed with the patient who requested that we call her daughter for update, she does consent to Pleurx catheter placement. Continue IV heparin until decision is made regard ing Pleurx catheter placement. Will order incentive spirometry encouraged to use. Wean O2 as tolerated. Encourage continued smoking cessation. Appreciate recommendations from oncology. Medical management of other comorbidities per primary care service. More recommendations to follow Thank you Dr. Islas for this consult. We look forward to working with you in the care of your patient. Time with Patient: Greater than 30
[2021-03-16] MEDS: HYDROcodone/APAP 5-325MG 1 EACH TAB PO PRN (15:38)
[2021-03-16] MEDS ORDERED: IOPAMIDOL CONTRAST (ORAL USE) VIAL PO PRN (18:30)
[2021-03-16] MEDS ORDERED: RX INFO: IV CONTRAST WAS GIVEN 1 EACH MISC MISCELLANE PRN (18:30)
--- NOTE | 2021-03-16 18:50 | P.CONS ---
History of Present Illness - Reason for Consult Consult date: 03/16/21 PE, anticoagulation recommendations Requesting physician: Meño Patel - Chief Complaint Back pain - History of Present Illness Mrs. Ga is a very pleasant female pt of Dr. Gonzáles. Referred for persistent thrombocytosis found during routine blood work. 10/24/13 CBC revealed platelets counts of 733k, total wbc of 1.2K, neutrophilia, hemoglobin of 14.5gm/dl. 03/20/2014 CBC revealed total platelets counts of 866K,total wbc of 12.8K. 12/12/14 platelets counts were 996K, wbc 14.9K, neutrophilia, hemoglobin 14.9gm/dl. 12/30/14 CT CAP was negative except for gastric fold thickening. 01/01/15 JEOVANNY-2 mutation was positive, C-reactive protein was normal, iron studies were consistent with deficiency, BCR/ABL was negative, findings most consistent with myeloproliferative disorder. 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 She was started on treatment with hydrea and had some tolerance issues. She was tried on Jakafi and was on it 2 different times. Then wanted back in hydrea in 2018 due to wt gain. She cont on hydrea, asa. 11/06/18 pt last seen in [facility]. At that time she wanted to follow up with PCP Dr. Yarbrough only, due to high co- pay and he has managed pt well. She presented to ER with worsening dyspnea and SOB x 3-4 days, d-dimer was elevated. CTA showed bilateral PE. She was started in heparin. She denies any bleeding at this time. Pt was diagnosed with lung adenocarcinoma when she was admitted a few weeks ago. She had c/o SOB, CTA was negative but, had large rt sided pleural effusion, path positive for adenocarcinoma. She was due to meet with Dr. Gonzáles today in ofc. She c/o left flank and back pain, in the lower rib area, her SOB is on exertion, she is requiring O2 at this time. Denies nausea, vomiting, appetite is fair, no chest pain, abd pain, acute changes in bowel or bladder habits. Review of Systems 10 point ROS is neg except as stated in HPI Past Medical History Past Medical History: Blood Disorder, Cancer, GERD/Reflux, Hyperlipidemia, Hypertension, Musculoskeletal Disorder, Osteoarthritis (OA), Pulmonary Embolus (PE), Thyroid Disorder Additional Past Medical History / Comment(s): seeing Dr Gonzáles for elevated platelets, rt rotator cuff arthropathy, pt stated has'nt had a good appetite nad wt down 30 pounds in a year. History of Any Multi-Drug Resistant Organisms: None Reported Past Surgical History: Appendectomy, Bladder Surgery, Section, Cholecystectomy, Hysterectomy, Joint Replacement, Orthopedic Surgery Additional Past Surgical History / Comment(s): right knee replaced x 2,parathyroidectomy,cataract surg., arthroscopy right shoulder, polyps removed from throat. 04-21-15 rt reverse total shoulder athroplsty, bilateral cataract surgery, appendectomy, 3, total abdominal hysterectomy and bilateral salpingo-oophorectomy. Past Anesthesia/Blood Transfusion Reactions: Motion Sickness, Postoperative Nausea & Vomiting (PONV) Additional Past Anesthesia/Blood Transfusion Reaction / Comm: only sick once w/anesthesia Past Psychological History: Anxiety Smoking Status: Former smoker Past Alcohol Use History: None Reported Past Drug Use History: None Reported Additional Drug Use History / Comment(s): pt has smoked since she was 17 years old. Recently quit around [facility], approx 3 weeks ago. At that time she was dx with adenocarcinoma in lungs. - Past Family History Father History Unknown: Yes Family Medical History: Unable to Obtain Mother History Unknown: Yes Family Medical History: Unable to Obtain Medications and Allergies Home Medications Medication Instructions Recorded Confirmed Type Levothyroxine Sodium [Synthroid] 50 mcg PO DAILY 04/08/14 03/15/21 History Omeprazole 20 mg PO HS 04/08/14 03/15/21 History Vitamin B Complex 1 cap PO DAILY 04/13/15 03/15/21 History Estradiol 1 mg PO DAILY 04/21/15 03/15/21 History Gabapentin [Neurontin] 100 mg PO HS 03/18/20 03/15/21 History Hydroxyurea 500 mg PO HS 03/18/20 03/15/21 History Hydroxyurea 500 mg PO SUMOTU 03/18/20 03/15/21 History Metoprolol Succinate [Toprol XL] 25 mg PO DAILY 03/18/20 03/15/21 History Metoprolol Succinate [Toprol XL] 50 mg PO HS 03/18/20 03/15/21 History ALPRAZolam [Xanax] 1 mg PO HS 02/24/21 03/15/21 History Escitalopram [Lexapro] 10 mg PO DAILY 02/24/21 03/15/21 History Multivit-Min/Iron/Folic/Lutein 1 tab PO DAILY 02/24/21 03/15/21 History [Centrum Silver Women Tablet] Aspirin EC [Ecotrin] 325 mg PO DAILY 03/15/21 03/15/21 History Cetirizine HCl [Zyrtec] 10 mg PO DAILY 03/15/21 03/15/21 History Ergocalciferol [Vitamin D2 (1250 1,250 mcg PO TU 03/15/21 03/15/21 History Mcg = [id number] Iu)] Allergies Allergy/AdvReac Type Severity Reaction Status Date / Time naproxen Allergy Unknown Verified 03/15/21 11:52 Sulfa (Sulfonamide Allergy Rash/Hives Verified 03/15/21 11:52 Antibiotics) Physical Exam Vitals: Vital Signs Temp Pulse Pulse Resp BP BP Pulse Ox 03/16/21 12:11 74 03/16/21 12:00 97.5 F L 66 18 127/61 97 03/16/21 09:33 72 03/16/21 09:20 70 03/16/21 08:00 97.9 F 69 18 135/63 95 03/16/21 04:00 97.6 F 69 20 132/69 98 03/16/21 02:00 90 22 03/16/21 00:00 98.0 F 92 22 128/57 94 L 03/15/21 21:02 71 03/15/21 20:48 64 03/15/21 20:47 64 20 126/57 94 L 03/15/21 20:00 98.9 F 82 20 149/67 95 03/15/21 18:09 81 03/15/21 18:00 77 03/15/21 17:18 78 20 128/73 96 03/15/21 15:00 77 20 150/67 95 03/15/21 13:46 82 20 129/83 97 03/15/21 12:16 91 18 120/64 93 L Intake and Output 03/15/21 03/16/21 03/16/21 22:59 06:59 14:59 Intake Total 109.856 86.268 30.082 Balance 109.856 86.268 30.082 Intake: Intake, IV Titration 109.856 86.268 30.082 Amount Heparin Sod,Pork in 0.45% 109.856 86.268 30.082 NaCl 25,000 unit In 0.45 % NaCl 1 250ml.bag @ 18 UNITS/KG/HR 14.615 mls/hr IV .Q17H7M [facility] Rx#: [id number] Oral 0 Other: # Voids 1 # Bowel Movements 0 Weight 81.193 kg 77.3 kg - Constitutional General appearance: average body habitus, cooperative, no acute distress - EENT Eyes: anicteric sclerae, EOMI ENT: hearing grossly normal, normal oropharynx - Neck right supraclavicular fullness - Respiratory Respiratory: right: diminished (base), bilateral: CTA - Cardiovascular Rhythm: regular Heart sounds: normal: S1, S2 Abnormal Heart Sounds: no systolic murmur, no diastolic murmur, no rub, no S3 Gallop, no S4 Gallop, no click, no other leg Peripheral Edema: bilateral: None - Gastrointestinal General gastrointestinal: no absent bowel sounds, no decreased bowel sounds, no distended, no hepatomegaly, no hyperactive bowel sounds, normal bowel sounds, no organomegaly, no rigid, no scaphoid, soft, no splenomegaly, no tenderness, no umbilical hernia, no ventral hernia - Integumentary Integumentary: normal - Neurologic Neurologic: CNII-XII intact - Musculoskeletal Pain left lower back, lateral to spine, no visible deformity, also pain in the left posterior ribs to palpation Musculoskeletal: strength equal bilaterally - Psychiatric Psychiatric: A&O x's 3, appropriate affect, intact judgment & insight Results CBC & Chem 7: 03/15/21 10:36 03/15/21 10:36 Labs: Abnormal Lab Results - Last 24 Hours (Table) 03/15/21 03/15/21 03/15/21 Range/Units 10:36 12:07 20:54 WBC 14.2 H (3.8-10.6) k/uL Neutrophils # (Manual) 12.70 H (1.3-7.7) k/uL Lymphocytes # (Manual) 0.85 L (1.0-4.8) k/uL Nucleated RBCs 1 H (0-0) /100 WBC APTT 21.5 L 143.4 H* (22.0-30.0) sec D-Dimer 29.45 H (<0.60) mg/L FEU 03/16/21 Range/Units 04:47 WBC (3.8-10.6) k/uL Neutrophils # (Manual) (1.3-7.7) k/uL Lymphocytes # (Manual) (1.0-4.8) k/uL Nucleated RBCs (0-0) /100 WBC APTT 67.4 H (22.0-30.0) sec D-Dimer (<0.60) mg/L FEU CT scan - chest: report reviewed Assessment and Plan (1) Primary lung adenocarcinoma Narrative/Plan: Pt was due to be seen by Dr. Gonzáles in ofc today for discussion about pleural fluid findings and further plan of care. We reviewed diagnosis of NSCLC. Pt is stage IV with positive pleural fluid. Intent of treatment is palliation of symptoms and prolongation of life. Specimen will be sent for NGS and PD-L1 testing. Will complete initial staging while inpt Dr. Gonzáles did speak to Dr. Cutler about possible pleurex drain since pt has recurrent malignant effusion Pt states she has trouble with transportation as she does not drive, she also has fixed income. I told her to at least f/u with Dr. Gonzáles once and we can go from there. She agreed. All her questions were answered to the best of my ability Current Visit: Yes Status: Acute Priority: High Code(s): C34.90 - MALIGNANT NEOPLASM OF UNSP PART OF UNSP BRONCHUS OR LUNG SNOMED Code(s): 058590498 (2) Pulmonary embolism Narrative/Plan: New diagnosis. Will send eliquis Rx for copay verification. Consult Case management. Pt will need to be on anticoagulation for at least 6mo. May need to consider life long if pt tolerating well because of metastatic cancer diagnosis. Current Visit: Yes Status: Acute Priority: High Code(s): I26.99 - OTHER PULMONARY EMBOLISM WITHOUT ACUTE COR PULMONALE SNOMED Code(s): 50857513
[2021-03-16] MEDS: METOPROLOL SUCCINATE (ER) 50 MG TAB.ER.24H PO SCH (21:17)
[2021-03-16] MEDS: ALPRAZolam 0.5 MG TAB PO SCH (21:17)
[2021-03-16] MEDS: GABAPENTIN 100 MG CAP PO SCH (21:17)
[2021-03-16] MEDS: ACETAMINOPHEN TAB 325 MG TAB PO PRN (21:17)
[2021-03-16] MEDS: PANTOPRAZOLE 40 MG TABLET PO SCH (21:17)
[2021-03-16] MEDS: HYDROXYUREA 500 MG CAP PO SCH ×3 (21:18→21:19)
[2021-03-17] MEDS: LEVOTHYROXINE 50 MCG TAB PO SCH (06:30)
[2021-03-17] MEDS: HEPARIN SOD,PORK IN 0.45% NACL 25,000 UNIT in 0.45% NACL 1 250ML.BAG IV SCH (06:30)
[2021-03-17] MEDS: HYDROcodone/APAP 5-325MG 1 EACH TAB PO PRN (07:48)
[2021-03-17] MEDS: ESCITALOPRAM 10 MG TAB PO SCH (07:49)
[2021-03-17] MEDS: MULTIVITAMINS, THERA 1 EACH TAB PO SCH (07:49)
[2021-03-17] MEDS: ASPIRIN 325 MG TAB PO SCH (07:49)
[2021-03-17] MEDS: METOPROLOL SUCCINATE (ER) 25 MG TAB.ER.24H PO SCH (07:49)
[2021-03-17] MEDS: LORATADINE 10 MG TAB PO SCH (07:50)
--- NOTE | 2021-03-17 07:53 | XR ---
EXAMINATION TYPE: XR chest 1V portable DATE OF EXAM: 03/17/2021 COMPARISON: Chest x-ray 03/15/[address] HISTORY: Pleural effusion TECHNIQUE: Single frontal view of the chest is obtained. FINDINGS: Right pleural effusion persists. No evident pneumothorax. Patchy density, prominence inter stitium noted in the left lung. Cardiac mediastinal silhouette is obscured. Postop change noted to th e right shoulder. There are overlying artifacts. IMPRESSION: There is no significant interval change. Right pleural effusion and associated atelectas is, correlate for possible pneumonia, follow-up suggested
[2021-03-17 08:51] LABS: Calcium 8.8 mg/dL (8.4-10.2); Potassium 4.3 mmol/L (3.5-5.1)
--- NOTE | 2021-03-17 08:56 | P.PN ---
Subjective Progress Note Date: 03/17/21 Principal diagnosis: Recurrent malignant right-sided pleural effusion, left-sided pulmonary emboli, bilateral lower extremity DVTs, acute on chronic hypoxic respiratory failure. Hi story of recent diagnosis pulmonary adenocarcinoma diagnosed from pleural fluid of last thoracentesis 03/01/21, COPD, on home oxygen at 2 L nasal cannula, chronic tobacco dependence with recent smoking cessation, hypertension, hypothyroid, thrombocytosis, currently on Hydrea, follows outpatient with Dr. Mitchell The patient was seen and examined this morning sitting up in bed on the cardiac step-down unit. She continues to state her breathing is stable as long as she is just sitting, does have difficulty breathing with even minimal exertion. She does have complaints of back pain which is not completely controlled with current medication regimen. The case was discussed with Dr. Fernandes last night, we will likely plan of pleurx catheter placement in the next 24-48 hours to allow for 48-72 hours worth of anticoagulation before it needs to be stopped for the procedure. This was discussed with the patient this morning, and will be communicated to her daughter today. Objective - Vital Signs Vital signs: Vital Signs Temp 98.0 F 03/17/21 04:00 Pulse 70 03/17/21 04:00 Resp 18 03/17/21 04:00 BP 142/65 03/17/21 04:00 Pulse Ox 97 03/17/21 04:00 Intake & Output 03/16/21 03/17/21 03/17/21 18:59 06:59 18:59 Intake Total 250.082 226.053 Balance 250.082 226.053 Weight 77.3 kg 80.5 kg Intake: Intake, IV Titration 30.082 226.053 Amount Heparin Sod,Pork in 0.45% 30.082 226.053 NaCl 25,000 unit In 0.45 % NaCl 1 250ml.bag @ 18 UNITS/KG/HR 14.615 mls/hr IV .Q17H7M [facility] Rx#: [id number] Oral 220 Other: # Voids 2 # Bowel Movements 0 - Exam CONSTITUTIONAL: Appears comfortable, cooperative, no acute distress RESPIRATORY: Lungs sounds diminished bilaterally, right greater than left. Respirations even, nonlabored at rest. Currently on 2 L nasal cannula with oxygen saturation 97%. Able to achieve 500 mL on incentive spirometry. Strong cough. CARDIOVASCULAR: S1, S2 present. Regular rate and rhythm, sinus rhythm on telemetry. Palpable peripheral pulses bilaterally. No edema present. GASTROINTESTINAL: Abdomen soft, nontender, nondistended. Active bowel sounds present 4 quadrants. Tolerating diet, currently NPO for abdominal scans. GENITOURINARY: Continues to void INTEGUMENTARY: Skin is warm and dry with evidence of good perfusion. NEUROLOGIC: Cranial nerves II through XII intact MUSKULOSKELETAL: Able to move all extremities, strength equal bilaterally PSYCHIATRIC: Alert and oriented to person place and time, appropriate affect, intact judgment and insight - Allied health notes Allied health notes reviewed: nursing - Labs CBC & Chem 7: 03/15/21 10:36 03/17/21 05:22 Labs: Abnormal Lab Results - Last 24 Hours (Table) 03/16/21 03/17/21 Range/Units 11:35 05:22 APTT 58.2 H 52.8 H (22.0-30.0) sec Microbiology - Last 24 Hours (Table) 03/15/21 10:15 Blood Culture - Preliminary Blood No Growth after 24 hours 03/15/21 10:30 Blood Culture - Preliminary Blood No Growth after 24 hours - Imaging and Cardiology Chest x-ray: image reviewed Assessment and Plan Assessment: 1. Recurrent malignant right-sided pleural effusion, last thoracentesis 03/01/2021 with removal of 750 mL fluid positive for pulmonary adenocarcinoma 2. Left-sided pulmonary emboli, bilateral lower extremity DVTs 3. Acute on chronic hypoxic respiratory failure 4. COPD, on home oxygen at 2 L nasal cannula 5. Chronic tobacco dependence with recent smoking cessation 6. History of hypertension 7. Hypothyroid 8. History of thrombocytosis, currently on Hydrea, follows outpatient with Dr. Mitchell Plan: 1. We will plan for right-sided Pleurx catheter placement in the next 24-48 hours 2. Continue IV heparin for now, to be placed on oral anticoagulation after Pleurx catheter placement 3. Encourage incentive spirometry use. Wean O2 as tolerated 4. Encourage continued smoking cessation 5. Medical management of other comorbidities per primary care, oncology 6. More recommendations to follow Time with Patient: Greater than 30
[2021-03-17] MEDS: SENNOSIDES-DOCUSATE SODIUM 1 EACH TAB PO SCH ×2 (10:02→20:23)
[2021-03-17] MEDS: IPRATROPIUM-ALBUTEROL 3 ML NEB INHALATION SCH ×4 (10:19→20:40)
--- NOTE | 2021-03-17 12:30 | P.PN ---
Subjective Progress Note Date: 03/17/21 Principal diagnosis: Pulmonary embolism. Recurrent malignant pleural effusion, shortness of breath, back pain. In follow-up today patient states she is still having left flank/back pain that isn't quite controlled on current analgesic regimen. She is awaiting staging studies for lung adenocarcinoma to be completed. She continues on the Hydrea without side effect complaints. She denies any bleeding on heparin drip. Objective - Vital Signs Vital signs: Vital Signs Temp 97.7 F 03/17/21 11:56 Pulse 70 03/17/21 11:56 Resp 18 03/17/21 11:56 BP 119/58 03/17/21 11:56 Pulse Ox 97 03/17/21 11:56 Intake & Output 03/16/21 03/17/21 03/17/21 18:59 06:59 18:59 Intake Total 250.082 226.053 100 Output Total 50 Balance 250.082 226.053 50 Weight 77.3 kg 80.5 kg Intake: Intake, IV Titration 30.082 226.053 Amount Heparin Sod,Pork in 0.45% 30.082 226.053 NaCl 25,000 unit In 0.45 % NaCl 1 250ml.bag @ 18 UNITS/KG/HR 14.615 mls/hr IV .Q17H7M [facility] Rx#: [id number] Oral 220 100 Output: Urine 50 Other: # Voids 2 1 # Bowel Movements 0 - Constitutional General appearance: Present: average body habitus, cooperative, no acute distress - EENT Eyes: Present: anicteric sclerae, EOMI ENT: Present: hearing grossly normal, normal oropharynx - Neck Details: Some right supraclavicular swelling. - Respiratory Respiratory: bilateral: diminished - Cardiovascular Rhythm: regular Heart sounds: normal: S1, S2 Abnormal Heart Sounds: Absent: systolic murmur, diastolic murmur, rub, S3 Gallop, S4 Gallop, click, other - Peripheral edema leg Peripheral Edema: bilateral: None - Gastrointestinal General gastrointestinal: Present: normal bowel sounds, soft - Integumentary Integumentary: Present: normal - Neurologic Neurologic: Present: CNII-XII intact - Musculoskeletal Musculoskeletal: Present: strength equal bilaterally - Psychiatric Psychiatric: Present: A&O x's 3, appropriate affect, intact judgment & insight - Labs CBC & Chem 7: 03/15/21 10:36 03/17/21 05:22 Labs: Abnormal Lab Results - Last 24 Hours (Table) 03/16/21 03/17/21 03/17/21 Range/Units 11:35 05:22 05:22 APTT 58.2 H 52.8 H (22.0-30.0) sec BUN 35 H (7-17) mg/dL Glucose 119 H (74-99) mg/dL Microbiology - Last 24 Hours (Table) 03/15/21 10:15 Blood Culture - Preliminary Blood No Growth after 24 hours 03/15/21 10:30 Blood Culture - Preliminary Blood No Growth after 24 hours Assessment and Plan (1) Primary lung adenocarcinoma Narrative/Plan: The patient denied any questions regarding her pulmonary adenocarcinoma diagnosis at this time. She does note that she is awaiting completion of staging workup. Current Visit: Yes Status: Acute Priority: High Code(s): C34.90 - MALIGNANT NEOPLASM OF UNSP PART OF UNSP BRONCHUS OR LUNG SNOMED Code(s): 841311361 (2) Pulmonary embolism Narrative/Plan: New diagnosis. Eliquis copay verification confirmed by Case management and discussed with the patient. Pt will need to be on anticoagulation for at least 6mo. May need to consider life long if pt tolerating well because of metastatic cancer diagnosis. Have reviewed Cardiothoracic surgery notes. Plan for Pleurx drain insertion. Resumed heparin drip postprocedure to ensure adequate hemostasis. Will start oral anticoagulation 24 hours later. Current Visit: Yes Status: Acute Priority: High Code(s): I26.99 - OTHER PULMONARY EMBOLISM WITHOUT ACUTE COR PULMONALE SNOMED Code(s): 77347952 (3) Pain, cancer Narrative/Plan: Not absolutely certain if patient's pain is related more to cancer or pulmonary embolism but, with suspect likely more related to cancer. Currently still pending completion of staging. Options for treatment, if metastatic disease is the cause of pain, will be offered once we have information-ie radiation, NSAIDs, steroids. For now, patient's pain medications have been dose adjusted and frequency increased. Medications for prevention of narcotic-induced constipation have been ordered. Current Visit: Yes Status: Acute Priority: High Code(s): G89.3 - NEOPLASM RELATED PAIN (ACUTE) (CHRONIC) SNOMED Code(s): 67072426672765 Plan: Review the case with Operations Manager/Coordinator. Patient is going to [facility]. Currently pending somatic molecular testing for possible mutations that have targeted treatment agents, these results take up to 2 weeks to return. Treatment will not be initiated until patient has been discharged from inpatient rehab. F/U with Dr. Gonzáles after DC from rehab Doctor attests: I performed a history and physical examination of this patient, developed impression and plan of care. Discussed with dictator. I agree with dictators note, documented as a scribe.
--- NOTE | 2021-03-17 13:19 | NM ---
EXAMINATION TYPE: NM bone scan whole body DATE OF EXAM: 03/17/2021 COMPARISON: CT 03/15/[address] 02/24/2021 HISTORY: Initial staging, right lung adenocarcinoma Delayed whole-body scanning was performed following the injection of 24.8 mCi Tc 99m MDP. Images acq uired 3 hours post injection. FINDINGS: Bandlike area of uptake at the thoracic spine 6th vertebral level is consistent with a compression de formity seen on CT, an interval finding compared to previous chest CT. There is a spinal curvature. S oft tissue uptake is normal. Focal photopenic area at the right knee is consistent with post arthropl asty change. Relative decreased uptake also noted within the right shoulder as compared to left likel y due to arthroplasty. Uptake within the sternoclavicular joints, right wrist, left shoulder felt lik petros to be degenerative. IMPRESSION: Vertebral compression fracture in the thoracic spine may be due to osteoporotic change, there is no a ssociated soft tissue mass on CT, MRI may be of benefit, correlate for osteoporotic compression fract ure having developed after prior chest CT 02/24/2021.
[2021-03-17] MEDS: HYDROcodone/APAP 7.5-325MG 1 EACH TAB PO PRN ×2 (13:26→20:22)
--- NOTE | 2021-03-17 13:46 | CT ---
EXAMINATION TYPE: CT brain w con DATE OF EXAM: 03/17/2021 COMPARISON: CT brain April 29, 2019 HISTORY: initial staging lung adenocarcinoma CT DLP: 3160 (brain, abd pelvis) mGycm. Automated Exposure Control for Dose Reduction was Utilized. TECHNIQUE: CT scan of the brain is performed with IV contrast. Patient injected with 100 cc Omnipaque 300. FINDINGS: Background mild ventricular and sulcal prominence redemonstrated. Persistent severe low at tenuation in the periventricular white matter consistent with chronic small vessel ischemic change. N o suspicious enhancing masses identified to suggest metastatic disease. The globes are intact and the visualized sinuses are clear. No midline shift is seen. IMPRESSION: No suspicious enhancing masses to suggest metastatic disease to the brain
--- NOTE | 2021-03-17 13:54 | CT ---
EXAMINATION TYPE: CT abdomen pelvis w con DATE OF EXAM: 03/17/2021 HISTORY: initial staging lung adenocarcinoma CT DLP: 3160 (brain abd pelvis)mGycm Automated Exposure Control for Dose Reduction was Utilized. CONTRAST: CT scan of the abdomen and pelvis is performed with oral and with IV Contrast, patient injected with 100 mL of Isovue 300. COMPARISON: CT abdomen and pelvis August 17, 2017 FINDINGS: LUNG BASES: Partial visualization of known right-sided pleural effusion and associated compressive at electasis. Mosaic attenuation in the visualized left lung base redemonstrated. LIVER/GB: Cholecystectomy clips redemonstrated. Stable 1.0 cm thin-walled cyst anteriorly left hepati c lobe axial image 20. PANCREAS: Mild diffuse atrophy again seen.. SPLEEN: Lobulated contour to the spleen is redemonstrated. ADRENALS: No new adrenal masses. KIDNEYS: No significant abnormality is seen. BOWEL: Oral contrast does not reach colonic level making evaluation of distal bowel slightly suboptim al. No suspicious small or large bowel dilatation. Sigmoid colonic diverticula are present. UTERUS/ADNEXA: Uterus surgically absent or markedly atrophic similar to prior. LYMPH NODES: No greater than 1cm abdominal or pelvic lymph nodes are appreciated. OSSEOUS STRUCTURES: Moderate axial joint space loss in both hips. Underlying dextroconvex scoliosis c entered at L2-L3 level. [id number] disc space narrowing with endplate sclerosis left L2-L3 an d L3-L4 along with right L4-L5 levels. Multilevel facet arthropathy. The red devil osseous structures ar e demineralized. No suspicious focal osseous lesions. Moderate axial joint space loss in both hips. OTHER: Moderate calcified plaque of the aorta extends into branch vessels. There is heterogeneous 6.7 x 5.5 x 4.5 cm fluid collection in the lateral left upper thigh muscle con sistent with intramuscular hematoma axial image 71 and coronal image 58. IMPRESSION: No suspicious mass or adenopathy to suggest metastatic disease. There is 6.7 cm upper lat eral left thigh heterogeneous fluid collection or intramuscular hematoma noted.
--- NOTE | 2021-03-17 13:59 | XR ---
Left hip history: Hematoma, pain 2 views of left hip correlated to bone scan and CT same date Bone mineralization is somewhat reduced. No evident fracture or dislocation. The soft tissue abnormal ity seen on CT is not seen on plain film. Contrast material seen within the bowel. There are vascular calcifications noted. IMPRESSION: See report CT scan same date
[2021-03-17 14:52] LABS: Anisocytosis Slight; HCT 33.7 % (34.0-46.0); Hypochromasia Moderate; MCH 38.9 pg (25.0-35.0); MCHC 31.7 g/dL (31.0-37.0); Macrocytosis Marked; Platelet Count 259 k/uL (150-450); RBC 2.75 m/uL (3.80-5.40); RDW 16.1 % (11.5-15.5); WBC 12.4 k/uL (3.8-10.6)
[2021-03-17 15:14] LABS: HGB 10.7 gm/dL (11.4-16.0); MCV 122.5 fL (80.0-100.0)
--- NOTE | 2021-03-17 15:26 | P.PN ---
Subjective Progress Note Date: 03/17/21 History of present illness: 81-year-old female patient of Dr. Yarbrough with past medical history of thrombocytosis followed Dr. Mitchell the past, history of hyperlipidemia hypertension, chronic back pain, GERD, was hospitalized recentlyfor worsening dyspnea shortness of breath found to have large pleural effusion patient subsequently was diagnosed with adenocarcinoma of the lung. Patient has been seen oncology since then. She presented to the emergency department today at [facility] with worsening dyspnea and shortness of breath for the last 3-4 days with worsening wheezes her symptom has been very severe with minimum exertion been severely symptomatic today patient called 911 and ended up coming to [facility] department by EMS was seen and evaluated with her testing including d-dimer was very high patient ended up going for CTA showed multi embolism of the lung. Patient also still showing lung mass. Pleural effusion on the right side as well. Was started on heparin drip consult pulmonary patient seen regularly and admit patient to the hospital for the above problem. From her last admission last time patient had severe shortness of breath was evaluated for pulmonary embolism which was negative but found to have large sided pleural effusion on the right side with negative Doppler the time as well. Patient had thoracentesis of the time came back apparently with malignant pleural effusion. Since then patient was diagnosed with adenocarcinoma. Also patient is known to have history of chronic leukocytosis and thrombocytosis has been seen oncology been treated with hydroxyurea. 03/16: Patient is on 3 L nasal cannula with pulse ox of 97% she is been afebrile, heart rate in the 60s and 70s, blood pressure 127/61. Patient states her breathing status is stable as long as she is sitting. She is complaining of back pain for which Tylenol and [place] will be added. She is requesting to be a DO NOT RESUSCITATE. Ultrasound of the bilateral lower extremity is positive for DVT bilaterally of the popliteal proximal calf veins. Consults in place for pulmonary medicine and oncology consult added. Patient is currently on heparin drip. 03/17: Patient remains afebrile, heart rate 70, blood pressure 119/58, pulse ox 97% on 3 L nasal cannula. Repeat blood work reveals WBC 12.4, hemoglobin 10.7, platelet count 259. Electrolytes normal, BUN 35 creatinine 1. Blood sugar 119. Patient is found to have a large hematoma on the left hip area. Sisters been asked to contact oncology with recommendations for anticoagulation at this poin t. She is currently on heparin drip. Bone scan revealed vertebral compression fractures in the thoracic spine may be due to osteoporotic change. No associated soft tissue mass on the CT. MRI may be of benefit. Correlate for osteoporotic compression fracture having developed after prior CAT scan done on 02/24/2021. CAT scan of the abdomen and pelvis revealed no suspicious mass or adenopathy to suggest metastatic disease. There is a 6.7 cm upper lateral left thigh heterogeneous fluid collection or intramuscular hematoma. CAT scan of the brain revealed no suspicious enhancing masses to suggest metastatic disease to the brain. Repeat chest x-ray reveals no significant interval change. Right pleural effusion and associated atelectasis, correlate for possible pneumonia. Patient is seen and followed by oncology as well as consult in place with cardiothoracic surgery planning for Pleurx catheter for recurrent right-sided pleural effusion. ROS: Constitutional: Denies chills, Denies fever, Denies lethargy, Denies malaise, Denies poor appetite, Denies weakness, Denies weight loss Eyes: denies decreased vision, denies diplopia, denies discharge, denies pain Ears: deny: decreased hearing Ears, nose, mouth and throat: Denies dental pain, Denies headache, Denies nasal discharge, Denies nose pain Cardiovascular: Denies chest pain, Denies decreased exercise tolerance, Denies edema, Denies high blood pressure, Denies irregular heart beat, Denies palpitations, Denies paroxysmal nocturnal dyspnea, Denies rapid heart beat, Denies shortness of breath Respiratory: Denies congestion, Denies cough, endorses cough with sputum, endorses dyspnea, Denies home oxygen, Denies wheezing Gastrointestinal: Denies abdominal pain, Denies change in bowel habits, Denies coffee ground emesis, Denies early satiety, Denies excessive gas, Denies heartburn, Denies hematemesis, Denies hematochezia, Denies loss of appetite, Denies nausea, Denies vomiting Genitourinary: Denies dysuria, Denies flank pain, Denies kidney stones, Denies menorrhagia, Denies urgency, Denies urinary frequency Musculoskeletal: Endorses gait dysfunction, endorses limitation of motion, Denies morning stiffness, Denies muscle cramps endorses back pain, uses the walker at baseline, reports hematoma left thigh Integumentary: Denies rash, Denies wounds, Denies brittle nails, Denies change in hair/nails, Denies darkening of skin Neurological: Denies balance difficulties, Denies change in speech, Denies double vision, Denies gait dysfunction, Denies loss of vision, Denies motor disturbance, Denies numbness, Denies paralysis, Denies paresthesias, Denies seizures Psychiatric: Denies anxiety, Denies depression Endocrine: Denies excessive sweating, Denies excessive thirst, Denies high blood sugars, Denies palpitations Hematologic/Lymphatic: Denies easy bruising, Denies lymphadenopathy Physical exam: - Constitutional General appearance: cooperative, no acute distress, obese - EENT Eyes: anicteric sclerae, PERRLA, normal appearance ENT: hearing grossly normal - Neck Neck: no lymphadenopathy, normal ROM, no other, no rigidity, no stridor, no thyromegaly - Respiratory Respiratory: bilateral: Decreased air entry on the right, dull on percussion on the right, no crackles no wheezing - Cardiovascular Rhythm: regular Heart sounds: normal: S1, S2 Abnormal Heart Sounds: no systolic murmur, no diastolic murmur, no rub, no S3 Gallop, no S4 Gallop, no click, no other - Gastrointestinal General gastrointestinal: normal bowel sounds, soft - Integumentary Integumentary: no rash, large hematoma on the left thigh lateral - Neurologic Neurologic: CNII-XII intact - Musculoskeletal Musculoskeletal: gait normal, strength equal bilaterally - Psychiatric Psychiatric: A&O x's 3, appropriate affect Assessment and plan: 1 acute respiratory failure: Combination of acute multi-pulmonary embolism with bilateral lower extremity DVT, COPD exacerbation, lung cancer and recurrent metastatic right-sided pleural effusion. Patient is currently on heparin drip, continue DuoNeb treatments 4 times daily, plan for Pleurx catheter. 2 acute multi-pulmonary embolism and bilateral lower extremity DVT. Continue heparin drip. Oncology is following, plan for eliquis eventually. 3 adenocarcinoma of the lung: Newly diagnosed patient is seen oncology not a clear whether she is a candidate for chemotherapy or any other treatment. 4 recurrent large sided pleural effusion on the right side. Cardiothoracic surgery for Pleurx catheter. 5. Acute left hip hematoma. Oncology contacted regarding anticoagulation recommendations. 6. chronic obstructive pulmonary disease: Patient be admitted continue O2 continue updraft treatment with DuoNeb and Pulmicort. 7. hypertension: Patient remain on metoprolol 50 mg daily. 8 thrombocytosis: Patient has been on hydroxyurea seen oncology. 9 hypothyroidism: Continue patient on levothyroxine 50 g daily. 10 chronic history of peripheral neuropathy. Continue gabapentin as before. 11 severe GERD. Protonix 40 mg daily. 12 DVT prophylaxis: Patient will be on anticoagulation. 13 depression: Has been on citalopram 10 mg daily. CODE STATUS: Full code. Discharge Plan TBD. Most likely return home Impression and plan of care have been directed as dictated by the signing physician. Tish Baldwin nurse practitioner acting as scribe for signing physician. Objective - Vital Signs Vital signs: Vital Signs Temp 98.6 F 03/17/21 08:00 Pulse 80 03/17/21 10:29 Resp 18 03/17/21 08:00 BP 115/74 03/17/21 08:00 Pulse Ox 96 03/17/21 08:00 Intake & Output 03/16/21 03/17/21 03/17/21 18:59 06:59 18:59 Intake Total 250.082 226.053 100 Output Total 50 Balance 250.082 226.053 50 Weight 77.3 kg 80.5 kg Intake: Intake, IV Titration 30.082 226.053 Amount Heparin Sod,Pork in 0.45% 30.082 226.053 NaCl 25,000 unit In 0.45 % NaCl 1 250ml.bag @ 18 UNITS/KG/HR 14.615 mls/hr IV .Q17H7M [facility] Rx#: [id number] Oral 220 100 Output: Urine 50 Other: # Voids 2 1 # Bowel Movements 0 - Labs CBC & Chem 7: 03/17/21 14:24 03/17/21 05:22 Labs: Abnormal Lab Results - Last 24 Hours (Table) 03/16/21 03/17/21 03/17/21 Range/Units 11:35 05:22 05:22 APTT 58.2 H 52.8 H (22.0-30.0) sec BUN 35 H (7-17) mg/dL Glucose 119 H (74-99) mg/dL Microbiology - Last 24 Hours (Table) 03/15/21 10:15 Blood Culture - Preliminary Blood No Growth after 24 hours 03/15/21 10:30 Blood Culture - Preliminary Blood No Growth after 24 hours
[2021-03-17] MEDS ORDERED: LIDOCAINE 1% INJ 10MG/ML (20 ML MDV) ONE (15:44)
--- NOTE | 2021-03-17 16:01 | P.PN ---
Subjective Progress Note Date: 03/17/21 Principal diagnosis: Shortness of breath. This is a 81-year-old female patient of Dr. Yarbrough with past history of 60+ year smoking history which is currently in remission, COPD, on home oxygen since her most recent admission in February 2021, newly diagnosed lung cancer. Antwan gonzalez was recently hospitalized in February 2021 and we saw the patient in consultation, and patient had a large right-sided pleural effusion which was loculated. Prior to the patient was treated for pneumonia that was not improving with several rounds of antibiotics. Interventional radiology was consulted and did a right-sided thoracentesis and removed 750 mL of dark colored fluid, which was sent for cytology and analysis. Pleural fluid analysis showed exudative fluid and cytology was positive for pulmonary adenocarcinoma. Pleural fluid cultures showed no organisms. Patient qualified for home oxygen, she was sent home on 2 L, she was medically optimized and discharged home on 03/01/2021 with instructions to follow-up with Dr. Cutler in the office on 03/12/2021, she was supposed to see Dr. Gonzáles from medical oncology. Patient was seen in the office on 03/12/[address] Cutler, and informed that she has stage IV pulmonary adenocarcinoma. She was having some ongoing shortness of breath and the chest x-ray was showing recurrence of the right-sided pleural effusion with some right basilar atelectasis and loculated right-sided pleural effusion. Patient was supposed to see Dr. Alex mason on an outpatient basis for insertion of a Pleurx catheter. She was supposed to be scheduled for an outpatient PET scan as well. On 03/15/2021 patient presented to the emergency department with worsening shortness of breath, and patient was having a difficult time ambulating. She lives by herself in an apartment. Chest x-ray showed right pleural effusion and associated atelectasis. CTA chest was completed related to elevated d-dimer of 29.45, and it showed multiple left lung pulmonary emboli and possible early airspace disease. Venous Dopplers showed nonocclusive DVT in bilateral popliteal and proximal calf veins. Patient denies any chest pain, no hemoptysis, no fever or chills, no lightheadedness, no cough or phlegm production. No swelling in lower extremities, no calf tenderness. She was started on heparin infusion. And this consult was initiated Progress note dated 03/17/2021. This is a 81-year-old female with a history of respiratory failure secondary to recurrent right-sided malignant effusion, and acute pulmonary emboli. The patient had acute pulmonary emboli in the left lung. She's newly diagnosed pulmonary adenocarcinoma, stage IV. The diagnosis is made by thoracentesis, and fluid analysis, on March 01. She has not started chemotherapy as yet. She has an extensive smoking history, hypertension, hyperlipidemia, and COPD. Currently, the patient is on 3 L nasal cannula. She's receiving IV heparin. She complains of mild shortness of breath on exertion, and pain in the left chest. Current laboratory data includes a white count 12.4, hemoglobin 10.7, hematocrit 33.7, and a platelet count 259,000. PTT is 52.8. Sodium 138, potassium 4.3, chlorides 105, CO2 23, anion gap 10, BUN 35, creatinine 1.04. Objective - Vital Signs Vital signs: Vital Signs Temp 97.9 F 03/17/21 15:52 Pulse 111 H 03/17/21 15:52 Resp 20 03/17/21 15:52 BP 131/72 03/17/21 15:52 Pulse Ox 92 L 03/17/21 15:52 Intake & Output 03/16/21 03/17/21 03/17/21 18:59 06:59 18:59 Intake Total 250.082 226.053 100 Output Total 50 Balance 250.082 226.053 50 Weight 77.3 kg 80.5 kg Intake: Intake, IV Titration 30.082 226.053 Amount Heparin Sod,Pork in 0.45% 30.082 226.053 NaCl 25,000 unit In 0.45 % NaCl 1 250ml.bag @ 18 UNITS/KG/HR 14.615 mls/hr IV .Q17H7M [facility] Rx#: [id number] Oral 220 100 Output: Urine 50 Other: Voiding Method Bedside Commode # Voids 2 1 # Bowel Movements 0 - Exam No acute distress, oriented 3. Currently on 3 L nasal cannula. Saturations are 92%. HEENT examination is grossly unremarkable. Neck supple. Full range of motion. No adenopathy thyromegaly or neck vein distention. Cardiovascular examination reveals regular rhythm rate. S1-S2 normal. No S3 or S4. No discernible murmur noted. Heart rate 105 bpm. Lungs reveal breath sounds at the right base. Scattered rhonchi are noted on the right. No wheezes or crackles. Breath sounds on the left are clear. Abdomen soft bowel sounds are heard. No masses or tenderness. Extremities are intact. No cyanosis clubbing or edema. Skin is without rash or lesion. Neurologic examination is brief but nonfocal. - Labs CBC & Chem 7: 03/17/21 14:24 03/17/21 05:22 Labs: Abnormal Lab Results - Last 24 Hours (Table) 03/17/21 03/17/21 03/17/21 Range/Units 05:22 05:22 14:24 WBC 12.4 H (3.8-10.6) k/uL RBC 2.75 L (3.80-5.40) m/uL Hgb 10.7 L D (11.4-16.0) gm/dL Hct 33.7 L (34.0-46.0) % MCV 122.5 H D (80.0-100.0) fL MCH 38.9 H (25.0-35.0) pg RDW 16.1 H (11.5-15.5) % Macrocytosis Marked A APTT 52.8 H (22.0-30.0) sec BUN 35 H (7-17) mg/dL Glucose 119 H (74-99) mg/dL Microbiology - Last 24 Hours (Table) 03/15/21 10:15 Blood Culture - Preliminary Blood No Growth after 48 hours 03/15/21 10:30 Blood Culture - Preliminary Blood No Growth after 48 hours Assessment and Plan Assessment: #1. Acute hypoxic respiratory failure related to recurrent right-sided mal ignant pleural effusion and acute pulmonary emboli. #2. Acute pulmonary emboli in the left lung, and acute nonocclusive bilateral popliteal DVTs and proximal calf veins. #3. Newly diagnosed pulmonary adenocarcinoma stage IV, the diagnosis was made from the cytology of the right-sided pleural fluid on 03/01/2021, that showed pulmonary adenocarcinoma. Patient was referred to medical oncology, and was supposed to see Dr. Mitchell in consultation and complete an outpatient PET scan. #4. Extensive history of smoking, 60+ years, in remission for the past 4 weeks. #5. Hypertension. #6. Hyperlipidemia. #7. COPD, has been placed on oxygen recently after last hospitalization. #8. Hypothyroidism. #9. Chronic back pain with peripheral neuropathy. #10. Depression. Plan: Plan dated 03/17/2021. Cardiothoracic surgery was consulted for possible Pleurx catheter placement, in the right pleural space, for the malignant right-sided effusion. The patient continues on heparin. She is on 3 L nasal cannula. She does not appear to have much in the way of respiratory distress. Medical oncology was asked to see the patient as well. They've not started any treatment as yet on this patient. Prognosis is very guarded. The patient is a DO NOT RESUSCITATE patient. We will continue to follow and make recommendations where appropriate. Time with Patient: Less than 30
--- NOTE | 2021-03-17 16:14 | P.GSCN ---
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 She can of the hospital and was found to have recurrent malignant pleural effusion and evidence of bilateral pulmonary emboli. She was initiated on a heparin drip and subsequently developed a large intramuscular hematoma with a significant hemoglobin drop. Given these findings is recommended she undergo placement of a an IVC filter. The patient isn't sure exactly how she had this hematoma start, she does not have any falls that she is aware of. Past Medical History Past Medical History: Blood Disorder, Cancer, GERD/Reflux, Hyperlipidemia, Hypertension, Musculoskeletal Disorder, Osteoarthritis (OA), Pulmonary Embolus (PE), Thyroid Disorder Additional Past Medical History / Comment(s): seeing Dr Gonzáles for elevated platelets, rt rotator cuff arthropathy, pt stated has'nt had a good appetite nad wt down 30 pounds in a year. History of Any Multi-Drug Resistant Organisms: None Reported Past Surgical History: Appendectomy, Bladder Surgery, Section, Cholecystectomy, Hysterectomy, Joint Replacement, Orthopedic Surgery Additional Past Surgical History / Comment(s): right knee replaced x 2,parathyroidectomy,cataract surg., arthroscopy right shoulder, polyps removed from throat. 04-21-15 rt reverse total shoulder athroplsty, bilateral cataract surgery, appendectomy, 3, total abdominal hysterectomy and bilateral salpingo-oophorectomy. Past Anesthesia/Blood Transfusion Reactions: Motion Sickness, Postoperative Nausea & Vomiting (PONV) Additional Past Anesthesia/Blood Transfusion Reaction / Comm: only sick once w/anesthesia Past Psychological History: Anxiety Smoking Status: Former smoker Past Alcohol Use History: None Reported Past Drug Use History: None Reported Additional Drug Use History / Comment(s): pt has smoked since she was 17 years old. Recently quit around , approx 3 weeks ago. At that time she was dx with adenocarcinoma in lungs. - Past Family History Father History Unknown: Yes Family Medical History: Unable to Obtain Additional Family Medical History / Comment(s): Patient is adopted Mother History Unknown: Yes Family Medical History: Unable to Obtain Additional Family Medical History / Comment(s): Patient is adopted although she has recently found out her biological mother of a stroke at 94 years old Medications and Allergies Home Medications Medication Instructions Recorded Confirmed Type Levothyroxine Sodium [Synthroid] 50 mcg PO DAILY 04/08/14 03/15/21 History Omeprazole 20 mg PO HS 04/08/14 03/15/21 History Vitamin B Complex 1 cap PO DAILY 04/13/15 03/15/21 History Estradiol 1 mg PO DAILY 04/21/15 03/15/21 History Gabapentin [Neurontin] 100 mg PO HS 03/18/20 03/15/21 History Hydroxyurea 500 mg PO HS 03/18/20 03/15/21 History Hydroxyurea 500 mg PO SUMOTU 03/18/20 03/15/21 History Metoprolol Succinate [Toprol XL] 25 mg PO DAILY 03/18/20 03/15/21 History Metoprolol Succinate [Toprol XL] 50 mg PO HS 03/18/20 03/15/21 History ALPRAZolam [Xanax] 1 mg PO HS 02/24/21 03/15/21 History Escitalopram [Lexapro] 10 mg PO DAILY 02/24/21 03/15/21 History Multivit-Min/Iron/Folic/Lutein 1 tab PO DAILY 02/24/21 03/15/21 History [Centrum Silver Women Tablet] Aspirin EC [Ecotrin] 325 mg PO DAILY 03/15/21 03/15/21 History Cetirizine HCl [Zyrtec] 10 mg PO DAILY 03/15/21 03/15/21 History Ergocalciferol [Vitamin D2 (1250 1,250 mcg PO TU 03/15/21 03/15/21 History Mcg = 19429 Iu)] Apixaban [Eliquis Starter Pack 5 - 10 mg PO DIRECTED 30 Days 03/16/21 Rx (for VTE)] #1 each Allergies Allergy/AdvReac Type Severity Reaction Status Date / Time naproxen Allergy Unknown Verified 03/15/21 11:52 Sulfa (Sulfonamide Allergy Rash/Hives Verified 03/15/21 11:52 Antibiotics) Surgical - Exam Vital Signs Temp Pulse Resp BP Pulse Ox 97.5 F L 104 H 22 123/88 99 03/15/21 10:20 03/15/21 10:20 03/15/21 10:20 03/15/21 10:20 03/15/21 10:20 Gen. is a pleasant and cooperative elderly, chronically ill-appearing female in no acute distress on oxygen per nasal cannula. Heart appears regular at this time. Lungs with significantly diminished breath sounds. Abdomen is soft, nontender nondistended. Large hematoma and ecchymosis of the left hip. Multiple areas of skin tears. Lower extremities without significant edema. Normal mood and affect. Cranial nerves II through XII grossly intact Results CTA of the chest is reviewed. Pulmonary and was identified. Ultrasound of bilateral lower extremity is reviewed. Popliteal DVT bilaterally - Labs 03/17/21 14:24 03/17/21 05:22 Abnormal Lab Results - Last 24 Hours (Table) 03/17/21 03/17/21 03/17/21 Range/Units 05:22 05:22 14:24 WBC 12.4 H (3.8-10.6) k/uL RBC 2.75 L (3.80-5.40) m/uL Hgb 10.7 L D (11.4-16.0) gm/dL Hct 33.7 L (34.0-46.0) % MCV 122.5 H D (80.0-100.0) fL MCH 38.9 H (25.0-35.0) pg RDW 16.1 H (11.5-15.5) % Macrocytosis Marked A APTT 52.8 H (22.0-30.0) sec BUN 35 H (7-17) mg/dL Glucose 119 H (74-99) mg/dL Microbiology - Last 24 Hours (Table) 03/15/21 10:15 Blood Culture - Preliminary Blood No Growth after 48 hours 03/15/21 10:30 Blood Culture - Preliminary Blood No Growth after 48 hours Diabetes panel 03/17/21 Range/Units 05:22 Sodium 138 (137-145) mmol/L Potassium 4.3 (3.5-5.1) mmol/L Chloride 105 (98-107) mmol/L Carbon Dioxide 23 (22-30) mmol/L BUN 35 H (7-17) mg/dL Creatinine 1.04 (0.52-1.04) mg/dL Glucose 119 H (74-99) mg/dL Calcium 8.8 (8.4-10.2) mg/dL Calcium panel 03/17/21 Range/Units 05:22 Calcium 8.8 (8.4-10.2) mg/dL Pituitary panel 03/17/21 Range/Units 05:22 Sodium 138 (137-145) mmol/L Potassium 4.3 (3.5-5.1) mmol/L Chloride 105 (98-107) mmol/L Carbon Dioxide 23 (22-30) mmol/L BUN 35 H (7-17) mg/dL Creatinine 1.04 (0.52-1.04) mg/dL Glucose 119 H (74-99) mg/dL Calcium 8.8 (8.4-10.2) mg/dL Adrenal panel 03/17/21 Range/Units 05:22 Sodium 138 (137-145) mmol/L Potassium 4.3 (3.5-5.1) mmol/L Chloride 105 (98-107) mmol/L Carbon Dioxide 23 (22-30) mmol/L BUN 35 H (7-17) mg/dL Creatinine 1.04 (0.52-1.04) mg/dL Glucose 119 H (74-99) mg/dL Calcium 8.8 (8.4-10.2) mg/dL Assessment and Plan Assessment: #1 bilateral lower extremity DVT #2 bilateral pulmonary emboli #3 large hematoma #4 symptomatic anemia secondary to #3 #5 malignant pleural effusion #6 pulmonary adenocarcinoma Plan: Given the patient's current anemia and bleeding along with her active DVT and PE been asked to place an IVC filter. This will place removed filter. In the future if she is able to tolerate anticoagulation and subsequent removal we will plan to go ahead with this however for now we will place and allow for further discussions at a later date. Risks and benefits were discussed and she seemingly understood and is willing to proceed
[2021-03-17] MEDS ORDERED: IV FLUID CONTINUATION 1,000 ML IV ONE (16:15)
[2021-03-17] MEDS ORDERED: fentaNYL (PF) 50 MCG/ML 5 ML AMP IV ONE (16:16)
[2021-03-17] MEDS ORDERED: MIDAZOLAM 2 MG/2 ML VIAL IV ONE (16:16)
[2021-03-17] MEDS ORDERED: IOPAMIDOL-250 100ML BTL IV ONE (16:32)
--- NOTE | 2021-03-17 16:38 | P.OP ---
Date of Procedure: 03/17/21 Description of Procedure: Preoperative diagnosis: Bilateral pulmonary embolism, recurrent pleural malignant effusion, bilateral lower extremity DVT, anemia from left hip hematoma Postoperative diagnosis: Same Procedure: #1 ultrasound-guided right common femoral vein access #2 right iliofemoral venogram #3. Venacavogram #4 fluoroscopic assisted placement of inferior vena cava filter #5 16 minutes of moderate conscious sedation Surgeon: Alejandra Bennett D.O. EBL: Less than 5 mL IV fluids: See records Urine output: Not recorded Drains: None Complications: none immediately appareny Condition: Stable to recovery Operative indication and findings: The patient is a 81-year-old female with history of thrombocytosis who has been maintained on her outpatient medications however she recently had an episode of shortness of breath which prompted imaging revealing a recurrent right malignant pleural effusion as well as bilateral pulmonary emboli. She was initiated on anticoagulation and subsequently developed a large left hip hematoma that caused severe anemia. Due to this it was recommended she undergo placement of an IVC filter. Risks and benefits were discussed. She seemingly understood and was willing to proceed as such Procedure in detail: The patient was taken to the special suite and placed in supine position. Bilateral groins are prepped and draped in usual sterile fashion. A preprocedure timeout was performed, all parties were in agreement. The ultrasound utilized in the right common femoral vein was identified. It was found be compressible and free of thrombus. Using ultrasound guidance, the vein was accessed and Seldinger technique was used with a 6-Sinhala sheath. A right iliofemoral venogram was performed showing no evidence of obvious thrombus. A wire was passed into the inferior vena cava. The filter sheath was passed into the inferior vena cava and an inferior venacavogram was performed to identify the renal veins. The vena cava was found to be appropriate for placement and therefore a filter was placed in standard fashion. A post procedural venogram showed adequate positioning. The wires and catheters were removed. She is removed and pressure was held until hemostasis was adequate. The patient tolerated the procedure well
[2021-03-17] MEDS: ALPRAZolam 0.5 MG TAB PO SCH (20:22)
[2021-03-17] MEDS: GABAPENTIN 100 MG CAP PO SCH (20:24)
[2021-03-17] MEDS: PANTOPRAZOLE 40 MG TABLET PO SCH (20:24)
[2021-03-17] MEDS: METOPROLOL SUCCINATE (ER) 50 MG TAB.ER.24H PO SCH (20:24)
[2021-03-17 20:55] LABS: Anisocytosis Slight; HCT 34.4 % (34.0-46.0); HGB 10.9 gm/dL (11.4-16.0); Hypochromasia Slight; MCH 38.9 pg (25.0-35.0); MCHC 31.5 g/dL (31.0-37.0); MCV 123.2 fL (80.0-100.0); Macrocytosis Marked; Mean Platelet Volume 7.7; Platelet Count 299 k/uL (150-450); RBC 2.79 m/uL (3.80-5.40); RDW 17.1 % (11.5-15.5); WBC 12.1 k/uL (3.8-10.6)
[2021-03-18] MEDS: LEVOTHYROXINE 50 MCG TAB PO SCH (06:03)
[2021-03-18] MEDS: PANTOPRAZOLE 40 MG TABLET PO SCH ×2 (06:03→21:34)
[2021-03-18] MEDS: HYDROcodone/APAP 7.5-325MG 1 EACH TAB PO PRN ×2 (06:03→21:34)
[2021-03-18] MEDS: IPRATROPIUM-ALBUTEROL 3 ML NEB INHALATION SCH ×4 (07:33→19:27)
[2021-03-18] MEDS: ESCITALOPRAM 10 MG TAB PO SCH (08:39)
[2021-03-18] MEDS: SENNOSIDES-DOCUSATE SODIUM 1 EACH TAB PO SCH ×2 (08:39→21:34)
[2021-03-18] MEDS: METOPROLOL SUCCINATE (ER) 25 MG TAB.ER.24H PO SCH (08:39)
[2021-03-18] MEDS: LORATADINE 10 MG TAB PO SCH (08:39)
[2021-03-18] MEDS: MULTIVITAMINS, THERA 1 EACH TAB PO SCH (08:39)
[2021-03-18] MEDS: ASPIRIN 325 MG TAB PO SCH (08:39)
--- NOTE | 2021-03-18 09:55 | IR ---
EXAMINATION TYPE: IR IVC filter placement DATE OF EXAM: 03/17/2021 COMPARISON: NONE HISTORY: Fluoroscopy time. Fluoroscopy was provided to the referring clinician.
[2021-03-18 10:22] LABS: HCT 31.7 % (34.0-46.0); HGB 10.2 gm/dL (11.4-16.0); Hypochromasia Slight; MCH 38.7 pg (25.0-35.0); MCHC 32.2 g/dL (31.0-37.0); MCV 120.3 fL (80.0-100.0); Macrocytosis Marked; Mean Platelet Volume 8.1; Platelet Count 259 k/uL (150-450); RBC 2.63 m/uL (3.80-5.40)
--- NOTE | 2021-03-18 10:39 | P.PN ---
Subjective Progress Note Date: 03/18/21 Principal diagnosis: Recurrent malignant right-sided pleural effusion, left-sided pulmonary emboli, bilateral lower extremity DVTs, acute on chronic hypoxic respiratory failure. P ast medical history significant for recent diagnosis of pulmonary adenocarcinoma diagnosed from pleural fluid of last thoracentesis 03/01/21, COPD, home oxygen at 2 L nasal cannula, chronic tobacco dependence with recent smoking cessation, hypertension, hypothyroid, thrombocytosis, currently on Hydrea, follows outpatient with Dr. Mitchell. POD #1 fluoroscopic assisted placement of inferior vena cava filter performed by Dr. Bennett. The patient was seen in follow-up today 03/18/2021 at her bedside on the cardiac stepdown unit. Currently she is awake, alert and oriented 3 and is in no acute apparent distress. She continues to complain of some shortness of breath with activity, although currently denies any complaints of pain. Oxygen saturation are 94% on 4 L nasal cannula and she is achieving 500-750 mL on her incentive spirometry with encouragement. The patient is scheduled for a right-sided Pleurx to be placed by Dr. Vernon Ruth tomorrow 03/19/2021. The patient will be nothing by mouth after midnight. Questions answered regarding the Pleurx catheter placement to the best of my ability. Objective - Vital Signs Vital signs: Vital Signs Temp 98.1 F 03/18/21 08:00 Pulse 96 03/18/21 08:00 Resp 20 03/18/21 08:00 BP 127/81 03/18/21 08:00 Pulse Ox 94 L 03/18/21 08:00 Intake & Output 03/17/21 03/18/21 03/18/21 18:59 06:59 18:59 Intake Total 150 Output Total 150 Balance 0 Weight 81 kg Intake: IV 50 Oral 100 Output: Urine 150 Other: Voiding Method Bedside Commode Bedside Commode # Voids 1 1 - Exam CONSTITUTIONAL: Appears comfortable, cooperative, no acute distress. RESPIRATORY: Lungs sounds diminished bilaterally, right greater than left. Respirations are symmetrical and nonlabored at rest. Currently on 4 L nasal cannula with oxygen saturation 94%. Able to achieve 500-750 mL on her incentive spirometry. Strong cough. CARDIOVASCULAR: S1, S2 present. Regular rate and rhythm, sinus rhythm on telemetry. Palpable peripheral pulses bilaterally. No edema present. GASTROINTESTINAL: Abdomen soft, nontender, nondistended. Active bowel sounds present 4 quadrants. Tolerating diet. GENITOURINARY: Continues to void INTEGUMENTARY: Skin is warm and dry with evidence of good perfusion. NEUROLOGIC: Cranial nerves II through XII intact MUSKULOSKELETAL: Able to move all extremities, strength equal bilaterally PSYCHIATRIC: Alert and oriented to person place and time, appropriate affect, intact judgment and insight - Allied health notes Allied health notes reviewed: nursing - Labs CBC & Chem 7: 03/17/21 20:38 03/17/21 05:22 Labs: Abnormal Lab Results - Last 24 Hours (Table) 03/17/21 03/17/21 Range/Units 14:24 20:38 WBC 12.4 H 12.1 H (3.8-10.6) k/uL RBC 2.75 L 2.79 L (3.80-5.40) m/uL Hgb 10.7 L D 10.9 L (11.4-16.0) gm/dL Hct 33.7 L (34.0-46.0) % MCV 122.5 H D 123.2 H (80.0-100.0) fL MCH 38.9 H 38.9 H (25.0-35.0) pg RDW 16.1 H 17.1 H (11.5-15.5) % Macrocytosis Marked A Marked A Microbiology - Last 24 Hours (Table) 03/15/21 10:15 Blood Culture - Preliminary Blood No Growth after 48 hours 03/15/21 10:30 Blood Culture - Preliminary Blood No Growth after 48 hours Assessment and Plan Assessment: 1. Recurrent malignant right-sided pleural effusion, last thoracentesis 03/01/2021 with removal of 750 mL fluid cytology positive for pulmonary adenocarcinoma 2. Left-sided pulmonary emboli, bilateral lower extremity DVTs, status post placement of IVC filter by Dr. Bennett 3. Acute on chronic hypoxic respiratory failure 4. COPD, on home oxygen at 2 L nasal cannula 5. Chronic tobacco dependence with recent smoking cessation 6. History of hypertension 7. Hypothyroid 8. History of thrombocytosis, currently on Hydrea, follows outpatient with Dr. Mitchell Plan: 1. The patient is scheduled for a right-sided Pleurx catheter placement tomorrow 03/19/2021 to be performed by Dr. Vernon Ruth. She will be placed nothing by mouth after midnight. 2. Medical management of other comorbidities per primary care, oncology 3. Encourage incentive spirometry use 10 times every hour while awake. Wean O2 as tolerated 4. Encourage continued smoking cessation 5. More recommendations to follow based on patient's clinical course. Time with Patient: Greater than 30
--- NOTE | 2021-03-18 10:48 | P.PN ---
Subjective Progress Note Date: 03/18/21 Principal diagnosis: Pulmonary embolism. Recurrent malignant pleural effusion, shortness of breath, back pain. In follow-up today patient states she is still having left flank/back pain that isn't quite controlled on current analgesic regimen. She is awaiting staging studies for lung adenocarcinoma to be completed. She continues on the Hydrea without side effect complaints. She denies any bleeding on heparin drip. Objective - Vital Signs Vital signs: Vital Signs Temp 98.1 F 03/18/21 08:00 Pulse 96 03/18/21 08:00 Resp 20 03/18/21 08:00 BP 127/81 03/18/21 08:00 Pulse Ox 94 L 03/18/21 08:00 Intake & Output 03/17/21 03/18/21 03/18/21 18:59 06:59 18:59 Intake Total 150 Output Total 150 Balance 0 Weight 81 kg Intake: IV 50 Oral 100 Output: Urine 150 Other: Voiding Method Bedside Commode Bedside Commode # Voids 1 1 1 - Constitutional General appearance: Present: average body habitus, cooperative, no acute distress - EENT Eyes: Present: anicteric sclerae, EOMI ENT: Present: hearing grossly normal - Respiratory Details: audible crackles Respiratory: bilateral: diminished - Cardiovascular Rhythm: regular Heart sounds: normal: S1, S2 Abnormal Heart Sounds: Absent: systolic murmur, diastolic murmur, rub, S3 Gallop, S4 Gallop, click, other - Peripheral edema leg Peripheral Edema: bilateral: None - Gastrointestinal General gastrointestinal: Present: normal bowel sounds, soft - Integumentary Integumentary Comment(s): Large left thigh bruise. On palpation of the bruise cannot feel a hematoma - Neurologic Neurologic: Present: CNII-XII intact - Musculoskeletal Musculoskeletal: Present: generalized weakness, strength equal bilaterally - Psychiatric Psychiatric: Present: A&O x's 3, appropriate affect, intact judgment & insight - Additional findings Additional findings: Left upper extremity swelling - Labs CBC & Chem 7: 03/17/21 20:38 03/17/21 05:22 Labs: Abnormal Lab Results - Last 24 Hours (Table) 03/17/21 03/17/21 Range/Units 14:24 20:38 WBC 12.4 H 12.1 H (3.8-10.6) k/uL RBC 2.75 L 2.79 L (3.80-5.40) m/uL Hgb 10.7 L D 10.9 L (11.4-16.0) gm/dL Hct 33.7 L (34.0-46.0) % MCV 122.5 H D 123.2 H (80.0-100.0) fL MCH 38.9 H 38.9 H (25.0-35.0) pg RDW 16.1 H 17.1 H (11.5-15.5) % Macrocytosis Marked A Marked A Microbiology - Last 24 Hours (Table) 03/15/21 10:15 Blood Culture - Preliminary Blood No Growth after 48 hours 03/15/21 10:30 Blood Culture - Preliminary Blood No Growth after 48 hours - Imaging and Cardiology CT scan - abdomen: report reviewed CT Scan - head: report reviewed CT scan - pelvis: report reviewed Nuclear medicine bone scan report reviewed Assessment and Plan (1) Primary lung adenocarcinoma Narrative/Plan: Staging shows no other sites of disease, only pleural fluid is positive. Specimen has been sent for somatic molecular testing. Treatment plans will be developed in the next 7-10 days. Patient will meet with Dr. Gonzáles to discuss options and to decide how she would like to proceed. Patient is having a Pleurx drain placed tomorrow for management of recurrent malignant pleural effusion. Current Visit: Yes Status: Acute Priority: High Code(s): C34.90 - MALIGNANT NEOPLASM OF UNSP PART OF UNSP BRONCHUS OR LUNG SNOMED Code(s): 674190013 (2) Pulmonary embolism Narrative/Plan: Patient was on heparin drip. Unfortunately, CT of the abdomen and pelvis did show a rather large hematoma of the lt thigh. This was confirmed on physical exam. No known trauma or injections in that area. Hemoglobin did have a modest drop. Case was discussed with Vascular. Heparin was stopped and retrievable IVC filter placed. Patient will be reevaluated and we can consider oral anticoagulation in the next few weeks/months. If patient does not exhibit any signs or symptoms of bleeding or unusual bruising on anticoagulation, she can be referred back to Vascular for removal of of the filter. Patient verbalized understanding Current Visit: Yes Status: Acute Priority: High Code(s): I26.99 - OTHER PULMONARY EMBOLISM WITHOUT ACUTE COR PULMONALE SNOMED Code(s): 23152920 (3) Pain, cancer Narrative/Plan: Not absolutely certain if patient's pain is related more to cancer or pulmonary embolism o the bruising. Patient reports today improved pain control with the increase in dose and frequency of [place]. Medications for prevention of narcotic-induced constipation have been ordered. Current Visit: Yes Status: Acute Priority: High Code(s): G89.3 - NEOPLASM RELATED PAIN (ACUTE) (CHRONIC) SNOMED Code(s): 21423136689209 Plan: Patient is going to [facility]. Currently pending somatic molecular testing for possible mutations that have targeted treatment agents, these results take up to 2 weeks to return. Treatment will not be initiated until patient has been discharged from inpatient rehab. F/U with Dr. Gonzáles after DC from rehab Doctor attests: I performed a history and physical examination of this patient, developed impression and plan of care. Discussed with dictator. I agree with dictators note, documented as a scribe.
[2021-03-18 12:08] LABS: Band Neutrophils % 2 %; Eosinophils # (M) 0.22 k/uL (0-0.7); Lymphocytes # (M) 1.21 k/uL (1.0-4.8); Monocytes # (M) 0.44 k/uL (0-1.0); Neutrophils % (M) 83 %; Nucleated Red Blood Cells 3 /100 WBC (0-0); Total Cells Counted 200
[2021-03-18 12:09] LABS: Polychromasia Present
[2021-03-18 12:10] LABS: Poikilocytosis (M) Present
[2021-03-18 12:11] LABS: Large Platelets Present
--- NOTE | 2021-03-18 12:35 | P.PN ---
Subjective Progress Note Date: 03/18/21 Patient seen and examined lying in bed. She is without any acute changes through the night. Yesterday she underwent IVC filter placement via right groin access. She is without any complaints or pain in the right groin. Objective - Vital Signs Vital signs: Vital Signs Temp 98.3 F 03/18/21 04:00 Pulse 80 03/18/21 07:40 Resp 20 03/18/21 04:00 BP 131/68 03/18/21 04:00 Pulse Ox 93 L 03/18/21 04:00 Intake & Output 03/17/21 03/18/21 03/18/21 18:59 06:59 18:59 Intake Total 150 Output Total 150 Balance 0 Weight 81 kg Intake: IV 50 Oral 100 Output: Urine 150 Other: Voiding Method Bedside Commode Bedside Commode # Voids 1 1 - Exam General appearance: The patient is alert, oriented, appears in no acute distress. HET: Head is normocephalic and atraumatic. Neck: Supple without lymphadenopathy. Trachea midline. Heart: S1 S2. Regular rate and rhythm. Lungs: No crackles or wheezes are heard. Abdomen: Soft, nontender, nondistended. Extremities: Normal skin color and turgor. No cyanosis, rash, ulceration, clubbing, or edema. Right groin access site without any ecchymosis or hematoma. Palpable femoral pulse. Extremity warm to touch with good capillary refill. Neurological: No focal deficits. - Labs CBC & Chem 7: 03/18/21 10:09 03/17/21 05:22 Labs: Abnormal Lab Results - Last 24 Hours (Table) 03/17/21 03/17/21 Range/Units 14:24 20:38 WBC 12.4 H 12.1 H (3.8-10.6) k/uL RBC 2.75 L 2.79 L (3.80-5.40) m/uL Hgb 10.7 L D 10.9 L (11.4-16.0) gm/dL Hct 33.7 L (34.0-46.0) % MCV 122.5 H D 123.2 H (80.0-100.0) fL MCH 38.9 H 38.9 H (25.0-35.0) pg RDW 16.1 H 17.1 H (11.5-15.5) % Macrocytosis Marked A Marked A Microbiology - Last 24 Hours (Table) 03/15/21 10:15 Blood Culture - Preliminary Blood No Growth after 48 hours 03/15/21 10:30 Blood Culture - Preliminary Blood No Growth after 48 hours Assessment and Plan Assessment: #1 bilateral lower extremity DVT, status post IVC filter placement #2 bilateral pulmonary emboli #3 large hematoma #4 symptomatic anemia secondary to #3 #5 malignant pleural effusion #6 pulmonary adenocarcinoma Plan: 1. Continue recommendations from the primary medical team and oncology 2. There is no further indication for any vascular surgical intervention at this time Thank you for this consultation, we will sign off at this time. The impression and plan of care has been dictated as directed. I performed a history and examination of this patient, discussed the same with the dictator. I agree with the dictator's note ,documented as a scribe. Any additional findings or plans will be noted.
--- NOTE | 2021-03-18 12:49 | P.PN ---
Subjective Progress Note Date: 03/18/21 History of present illness: 81-year-old female patient of Dr. Yarbrough with past medical history of thrombocytosis followed Dr. Mitchell the past, history of hyperlipidemia hypertension, chronic back pain, GERD, was hospitalized recentlyfor worsening dyspnea shortness of breath found to have large pleural effusion patient subsequently was diagnosed with adenocarcinoma of the lung. Patient has been seen oncology since then. She presented to the emergency department today at [facility] with worsening dyspnea and shortness of breath for the last 3-4 days with worsening wheezes her symptom has been very severe with minimum exertion been severely symptomatic today patient called 911 and ended up coming to [facility] department by EMS was seen and evaluated with her testing including d-dimer was very high patient ended up going for CTA showed multi embolism of the lung. Patient also still showing lung mass. Pleural effusion on the right side as well. Was started on heparin drip consult pulmonary patient seen regularly and admit patient to the hospital for the above problem. From her last admission last time patient had severe shortness of breath was evaluated for pulmonary embolism which was negative but found to have large sided pleural effusion on the right side with negative Doppler the time as well. Patient had thoracentesis of the time came back apparently with malignant pleural effusion. Since then patient was diagnosed with adenocarcinoma. Also patient is known to have history of chronic leukocytosis and thrombocytosis has been seen oncology been treated with hydroxyurea. 03/16: Patient is on 3 L nasal cannula with pulse ox of 97% she is been afebrile, heart rate in the 60s and 70s, blood pressure 127/61. Patient states her breathing status is stable as long as she is sitting. She is complaining of back pain for which Tylenol and Roseau will be added. She is requesting to be a DO NOT RESUSCITATE. Ultrasound of the bilateral lower extremity is positive for DVT bilaterally of the popliteal proximal calf veins. Consults in place for pulmonary medicine and oncology consult added. Patient is currently on heparin drip. 03/17: Patient remains afebrile, heart rate 70, blood pressure 119/58, pulse ox 97% on 3 L nasal cannula. Repeat blood work reveals WBC 12.4, hemoglobin 10.7, platelet count 259. Electrolytes normal, BUN 35 creatinine 1. Blood sugar 119. Patient is found to have a large hematoma on the left hip area. Sisters been asked to contact oncology with recommendations for anticoagulation at this poin t. She is currently on heparin drip. Bone scan revealed vertebral compression fractures in the thoracic spine may be due to osteoporotic change. No associated soft tissue mass on the CT. MRI may be of benefit. Correlate for osteoporotic compression fracture having developed after prior CAT scan done on 02/24/2021. CAT scan of the abdomen and pelvis revealed no suspicious mass or adenopathy to suggest metastatic disease. There is a 6.7 cm upper lateral left thigh heterogeneous fluid collection or intramuscular hematoma. CAT scan of the brain revealed no suspicious enhancing masses to suggest metastatic disease to the brain. Repeat chest x-ray reveals no significant interval change. Right pleural effusion and associated atelectasis, correlate for possible pneumonia. Patient is seen and followed by oncology as well as consult in place with cardiothoracic surgery planning for Pleurx catheter for recurrent right-sided pleural effusion. 03/18: Patient underwent IVC filter yesterday with Dr. Bennett. Oncology is planning for oral anticoagulation in the next few weeks/months if the patient does not exhibit any signs or symptoms of bleeding or unusual bruising with anticoagulations, she can referred back to vascular for removal of the filter. Pleurx catheter scheduled for Monday with cardiothoracic team. Hemoglobin has been stable at 10.2. WBC 11. Blood culture no growth at 48 hours. Patient has been afebrile, heart rate 96, blood pressure 161/63, pulse ox 91% on 4 L nasal c annula. Concerns from the patient. ROS: Constitutional: Denies chills, Denies fever, Denies lethargy, Denies malaise, Denies poor appetite, Denies weakness, Denies weight loss Eyes: denies decreased vision, denies diplopia, denies discharge, denies pain Ears: deny: decreased hearing Ears, nose, mouth and throat: Denies dental pain, Denies headache, Denies nasal discharge, Denies nose pain Cardiovascular: Denies chest pain, Denies decreased exercise tolerance, Denies edema, Denies high blood pressure, Denies irregular heart beat, Denies palpitations, Denies paroxysmal nocturnal dyspnea, Denies rapid heart beat, Denies shortness of breath Respiratory: Denies congestion, Denies cough, endorses cough with sputum, endorses dyspnea, Denies home oxygen, Denies wheezing Gastrointestinal: Denies abdominal pain, Denies change in bowel habits, Denies coffee ground emesis, Denies early satiety, Denies excessive gas, Denies heartburn, Denies hematemesis, Denies hematochezia, Denies loss of appetite, Denies nausea, Denies vomiting Genitourinary: Denies dysuria, Denies flank pain, Denies kidney stones, Denies menorrhagia, Denies urgency, Denies urinary frequency Musculoskeletal: Endorses gait dysfunction, endorses limitation of motion, Denies morning stiffness, Denies muscle cramps endorses back pain, uses the walker at baseline, reports hematoma left thigh Integumentary: Denies rash, Denies wounds, Denies brittle nails, Denies change in hair/nails, Denies darkening of skin Neurological: Denies balance difficulties, Denies change in speech, Denies double vision, Denies gait dysfunction, Denies loss of vision, Denies motor disturbance, Denies numbness, Denies paralysis, Denies paresthesias, Denies seizures Psychiatric: Denies anxiety, Denies depression Endocrine: Denies excessive sweating, Denies excessive thirst, Denies high blood sugars, Denies palpitations Hematologic/Lymphatic: Denies easy bruising, Denies lymphadenopathy Physical exam: - Constitutional General appearance: cooperative, no acute distress, obese, resting in bed and appears to be comfortable - EENT Eyes: anicteric sclerae, PERRLA, normal appearance ENT: hearing grossly normal - Neck Neck: no lymphadenopathy, normal ROM, no other, no rigidity, no stridor, no thyromegaly - Respiratory Respiratory: bilateral: Decreased air entry on the right, dull on percussion on the right, no crackles no wheezing - Cardiovascular Rhythm: regular Heart sounds: normal: S1, S2 Abnormal Heart Sounds: no systolic murmur, no diastolic murmur, no rub, no S3 Gallop, no S4 Gallop, no click, no other - Gastrointestinal General gastrointestinal: normal bowel sounds, soft - Integumentary Integumentary: no rash, large hematoma on the left lateral hip - Neurologic Neurologic: CNII-XII intact - Musculoskeletal Musculoskeletal: gait normal, strength equal bilaterally - Psychiatric Psychiatric: A&O x's 3, appropriate affect Assessment and plan: 1 acute respiratory failure: Combination of acute multi-pulmonary embolism with bilateral lower extremity DVT, COPD exacerbation, lung cancer and recurrent metastatic right-sided pleural effusion. Patient is off heparin drip, continue DuoNeb treatments 4 times daily, plan for Pleurx catheter tomorrow. 2 acute multi-pulmonary embolism and bilateral lower extremity DVT. Patient is status post IVC filter performed by Dr. Bennett on 03/17. Oncology is following, plan for eliquis eventually. 3 adenocarcinoma of the lung: Newly diagnosed patient, oncology is developing plan for chemotherapy/immunotherapy, workup in progress.. 4 recurrent large sided pleural effusion on the right side. Cardiothoracic surgery for Pleurx catheter. 5. Acute left hip hematoma status post IVC filter. No anticoagulation at this time 6. chronic obstructive pulmonary disease: Patient be admitted continue O2 continue updraft treatment with DuoNeb and Pulmicort. 7. hypertension: Patient remain on metoprolol 50 mg daily. 8 thrombocytosis: Patient has been on hydroxyurea seen oncology. 9 hypothyroidism: Continue patient on levothyroxine 50 g daily. 10 chronic history of peripheral neuropathy. Continue gabapentin as before. 11 severe GERD. Protonix 40 mg daily. 12 DVT prophylaxis: Patient will be on anticoagulation. 13 depression: Has been on citalopram 10 mg daily. CODE STATUS: Full code. Discharge Plan Subacute rehab at [facility] on Monday Impression and plan of care have been directed as dictated by the signing physician. Tish Baldwin nurse practitioner acting as scribe for signing physician. Objective - Vital Signs Vital signs: Vital Signs Temp 98.1 F 03/18/21 08:00 Pulse 96 03/18/21 08:00 Resp 20 03/18/21 08:00 BP 127/81 03/18/21 08:00 Pulse Ox 94 L 03/18/21 08:00 Intake & Output 03/17/21 03/18/21 03/18/21 18:59 06:59 18:59 Intake Total 150 Output Total 150 Balance 0 Weight 81 kg Intake: IV 50 Oral 100 Output: Urine 150 Other: Voiding Method Bedside Commode Bedside Commode # Voids 1 1 1 - Labs CBC & Chem 7: 03/18/21 10:09 03/17/21 05:22 Labs: Abnormal Lab Results - Last 24 Hours (Table) 03/17/21 03/17/21 Range/Units 14:24 20:38 WBC 12.4 H 12.1 H (3.8-10.6) k/uL RBC 2.75 L 2.79 L (3.80-5.40) m/uL Hgb 10.7 L D 10.9 L (11.4-16.0) gm/dL Hct 33.7 L (34.0-46.0) % MCV 122.5 H D 123.2 H (80.0-100.0) fL MCH 38.9 H 38.9 H (25.0-35.0) pg RDW 16.1 H 17.1 H (11.5-15.5) % Macrocytosis Marked A Marked A Microbiology - Last 24 Hours (Table) 03/15/21 10:15 Blood Culture - Preliminary Blood No Growth after 48 hours 03/15/21 10:30 Blood Culture - Preliminary Blood No Growth after 48 hours
--- NOTE | 2021-03-18 15:29 | P.PN ---
Subjective Progress Note Date: 03/18/21 Principal diagnosis: Shortness of breath. This is a 81-year-old female patient of Dr. Yarbrough with past history of 60+ year smoking history which is currently in remission, COPD, on home oxygen since her most recent admission in February 2021, newly diagnosed lung cancer. Antwan gonzalez was recently hospitalized in February 2021 and we saw the patient in consultation, and patient had a large right-sided pleural effusion which was loculated. Prior to the patient was treated for pneumonia that was not improving with several rounds of antibiotics. Interventional radiology was consulted and did a right-sided thoracentesis and removed 750 mL of dark colored fluid, which was sent for cytology and analysis. Pleural fluid analysis showed exudative fluid and cytology was positive for pulmonary adenocarcinoma. Pleural fluid cultures showed no organisms. Patient qualified for home oxygen, she was sent home on 2 L, she was medically optimized and discharged home on 03/01/2021 with instructions to follow-up with Dr. Cutler in the office on 03/12/2021, she was supposed to see Dr. Gonzáles from medical oncology. Patient was seen in the office on 03/12/[address] Cutler, and informed that she has stage IV pulmonary adenocarcinoma. She was having some ongoing shortness of breath and the chest x-ray was showing recurrence of the right-sided pleural effusion with some right basilar atelectasis and loculated right-sided pleural effusion. Patient was supposed to see Dr. Alex mason on an outpatient basis for insertion of a Pleurx catheter. She was supposed to be scheduled for an outpatient PET scan as well. On 03/15/2021 patient presented to the emergency department with worsening shortness of breath, and patient was having a difficult time ambulating. She lives by herself in an apartment. Chest x-ray showed right pleural effusion and associated atelectasis. CTA chest was completed related to elevated d-dimer of 29.45, and it showed multiple left lung pulmonary emboli and possible early airspace disease. Venous Dopplers showed nonocclusive DVT in bilateral popliteal and proximal calf veins. Patient denies any chest pain, no hemoptysis, no fever or chills, no lightheadedness, no cough or phlegm production. No swelling in lower extremities, no calf tenderness. She was started on heparin infusion. And this consult was initiated Progress note dated 03/17/2021. This is a 81-year-old female with a history of respiratory failure secondary to recurrent right-sided malignant effusion, and acute pulmonary emboli. The patient had acute pulmonary emboli in the left lung. She's newly diagnosed pulmonary adenocarcinoma, stage IV. The diagnosis is made by thoracentesis, and fluid analysis, on March 01. She has not started chemotherapy as yet. She has an extensive smoking history, hypertension, hyperlipidemia, and COPD. Currently, the patient is on 3 L nasal cannula. She's receiving IV heparin. She complains of mild shortness of breath on exertion, and pain in the left chest. Current laboratory data includes a white count 12.4, hemoglobin 10.7, hematocrit 33.7, and a platelet count 259,000. PTT is 52.8. Sodium 138, potassium 4.3, chlorides 105, CO2 23, anion gap 10, BUN 35, creatinine 1.04. Progress note dated 03/18/2021. 81-year-old female, again seen in room 382. She's currently on 4 L nasal cannula. The patient came in with a recurrent right-sided malignant effusion. She apparently is going to have a Pleurx catheter placed tomorrow by cardiothoracic surgery. She had an IVC filter placed by Dr. Bennett on March 17. White count 11, hemoglobin 10.2, hematocrit 31.7, and platelet count 259,000. The patient is not complaining of any shortness of breath, chest pain, cough, wheezing, or phlegm production. She does have some mild shortness of breath on exertion. She has not started chemotherapy as yet. She has a history of extensive tobacco use, hypertension, hyperlipidemia, and COPD. Objective - Vital Signs Vital signs: Vital Signs Temp 97.7 F 03/18/21 11:56 Pulse 96 03/18/21 11:56 Resp 20 03/18/21 11:56 BP 161/63 03/18/21 11:56 Pulse Ox 91 L 03/18/21 11:56 Intake & Output 03/17/21 03/18/21 03/18/21 18:59 06:59 18:59 Intake Total 150 Output Total 150 Balance 0 Weight 81 kg Intake: IV 50 Oral 100 Output: Urine 150 Other: Voiding Method Bedside Commode Bedside Commode # Voids 1 1 2 - Exam No acute distress, oriented 3. Currently on 4 L nasal cannula. Saturations are 91%. HEENT examination is grossly unremarkable. Neck supple. Full range of motion. No adenopathy thyromegaly or neck vein distention. Cardiovascular examination reveals regular rhythm rate. S1-S2 normal. No S3 or S4. No discernible murmur noted. Heart rate 80 bpm. Lungs reveal breath sounds at the right base. Scattered rhonchi are noted on the right. No wheezes or crackles. Breath sounds on the left are clear. Abdomen soft bowel sounds are heard. No masses or tenderness. Extremities are intact. No cyanosis clubbing or edema. Skin is without rash or lesion. Neurologic examination is brief but nonfocal. - Labs CBC & Chem 7: 03/18/21 10:09 03/17/21 05:22 Labs: Abnormal Lab Results - Last 24 Hours (Table) 03/17/21 03/18/21 Range/Units 20:38 10:09 WBC 12.1 H 11.0 H (3.8-10.6) k/uL RBC 2.79 L 2.63 L (3.80-5.40) m/uL Hgb 10.9 L 10.2 L (11.4-16.0) gm/dL Hct 31.7 L (34.0-46.0) % MCV 123.2 H 120.3 H (80.0-100.0) fL MCH 38.9 H 38.7 H (25.0-35.0) pg RDW 17.1 H 16.0 H (11.5-15.5) % Neutrophils # (Manual) 9.30 H (1.3-7.7) k/uL Nucleated RBCs 3 H (0-0) /100 WBC Macrocytosis Marked A Marked A Microbiology - Last 24 Hours (Table) 03/15/21 10:15 Blood Culture - Preliminary Blood No Growth after 72 hours 03/15/21 10:30 Blood Culture - Preliminary Blood No Growth after 72 hours Assessment and Plan Assessment: #1. Acute hypoxic respiratory failure related to recurrent right-sided malignant pleural effusion and acute pulmonary emboli, with anticipated Pleurx catheter placement on 03/19/2021. #2. Acute pulmonary emboli in the left lung, and acute nonocclusive bilateral popliteal DVTs and proximal calf veins, status post IVC filter placed by vascular surgery, on 03/17/2021. #3. Newly diagnosed pulmonary adenocarcinoma stage IV, the diagnosis was made from the cytology of the right-sided pleural fluid on 03/01/2021, that showed p ulmonary adenocarcinoma. Patient was referred to medical oncology, and was supposed to see Dr. Gonzáles in consultation and complete an outpatient PET scan. #4. Extensive history of smoking, 60+ years, in remission for the past 4 weeks. #5. Hypertension. #6. Hyperlipidemia. #7. COPD, has been placed on oxygen recently after last hospitalization. #8. Hypothyroidism. #9. Chronic back pain with peripheral neuropathy. #10. Depression. Plan: Plan dated 03/17/2021. Cardiothoracic surgery was consulted for possible Pleurx catheter placement, in the right pleural space, for the malignant right-sided effusion. The patient continues on heparin. She is on 3 L nasal cannula. She does not appear to have much in the way of respiratory distress. Medical oncology was asked to see the patient as well. They've not started any treatment as yet on this patient. Prognosis is very guarded. The patient is a DO NOT RESUSCITATE patient. We will continue to follow and make recommendations where appropriate. Plan dated 03/18/2021. The patient will be seen by cardiothoracic surgery tomorrow for placement of a right-sided Pleurx catheter. Yesterday, she had a IVC filter placed by Dr. Bennett and vascular surgery. She has been seen by medical oncology. Her prognosis is poor. She is a DO NOT RESUSCITATE patient. We will continue to follow make recommendations where appropriate. Currently, she remains on 4 L nasal cannula. She's not receiving any IV fluids. Her lab data was reviewed. Time with Patient: Less than 30
[2021-03-18] MEDS: METOPROLOL SUCCINATE (ER) 50 MG TAB.ER.24H PO SCH (21:34)
[2021-03-18] MEDS: ALPRAZolam 0.5 MG TAB PO SCH (21:34)
[2021-03-18] MEDS: GABAPENTIN 100 MG CAP PO SCH (21:34)
[2021-03-18] MEDS: HYDROXYUREA 500 MG CAP PO SCH (21:39)
[2021-03-19] MEDS: PANTOPRAZOLE 40 MG TABLET PO SCH ×2 (05:48→20:08)
[2021-03-19] MEDS: LEVOTHYROXINE 50 MCG TAB PO SCH (05:48)
[2021-03-19] MEDS ORDERED: ALBUTEROL NEBULIZED 2.5 MG/3 ML INHALATION ONE (06:25)
[2021-03-19] MEDS ORDERED: LACTATED RINGERS 1,000 ML IV ONE (06:38)
[2021-03-19] MEDS ORDERED: KETAMINE 10 MG/ML 20 ML VIAL ONE (06:55)
[2021-03-19] MEDS ORDERED: MIDAZOLAM 2 MG/2 ML VIAL ONE (06:55)
[2021-03-19] MEDS ORDERED: ceFAZolin 1,000 MG VIAL IVPB ONE (07:00)
[2021-03-19] MEDS: IPRATROPIUM-ALBUTEROL 3 ML NEB INHALATION SCH ×4 (07:25→20:47)
--- NOTE | 2021-03-19 08:08 | P.OP ---
Date of Procedure: 03/19/21 Preoperative Diagnosis: Recurrent right malignant pleural effusion Postoperative Diagnosis: Same Procedure(s) Performed: Right Pleurx catheter placement with fluoroscopy Implants: Right Pleurx catheter Anesthesia: MAC Surgeon: Vernon Ruth Estimated Blood Loss (ml): 1 IV fluids (ml): 100 Urine output (ml): 0 Pathology: none sent Condition: stable Disposition: PACU Indications for Procedure: 81-year-old female with recent diagnosis of malignant pleural effusion secondary to primary adenocarcinoma the lung. She presented at this time with shortness of breath and was diagnosed with both recurrent pleural effusion and new pulmonary emboli. She was started on anticoagulation but the left developed some bleeding from her thigh. Anticoagulation was stopped and a vena caval filter was placed. Catheter was requested by pulmonary medicine. Operative Findings: 1000 mL of clear serous fluid was drained from the right pleural space. Final chest x-ray demonstrated good expansion of the right lower lobe with minimal pleural effusion residual Description of Procedure: The patient was brought to the operating room, placed supine on the operating table. The head was elevated. The right chest was exposed and prepped and draped. 2% lidocaine anesthesia was used along with mild IV sedation. Right pleural space was punctured in the midaxillary line in the seventh interspace since clear serous fluid was identified. An 18-gauge needle was placed here and a guidewire threaded in under fluoroscopic guidance and confirmed present in the pleural space. The site was then enlarged to just over a centimeter and a counterincision was made in the right upper quadrant just under a centimeter. The Pleurx catheter was tunneled from the counterincision to the entry site with the cuff just under the skin at the exit site. Introducer and dilator were placed over the guidewire under fluoroscopic guidance and the Pleurx catheter was placed through the introducer sheath into the pleural space. It was connected to suction this clear serous fluid was drained. The entry site was closed with 4-0 Vicryl suture. Catheter was secured at the exit site with 2-0 silk suture. On completion of drainage of the right pleural space fluoroscopy demonstrated good expansion of the lung with minimal residual effusion. Standard Pleurx dressing was then placed. Patient was transferred to recovery in good condition. She tolerated the procedure well.
--- NOTE | 2021-03-19 08:27 | FL ---
EXAMINATION TYPE: FL guidance operating room DATE OF EXAM: 03/19/2021 HISTORY: Fluoroscopy time 6 seconds of fluoroscopy provided. IMPRESSION: 1. Fluoroscopy time.
--- NOTE | 2021-03-19 08:31 | XR ---
EXAMINATION TYPE: XR chest 1V portable DATE OF EXAM: 03/19/2021 COMPARISON: 03/17/2021 HISTORY: Chest tube placement TECHNIQUE: Single frontal view of the chest is obtained. FINDINGS: Right-sided chest tube is seen and there is right-sided pleural effusion and consolidation with persistent hydropneumothorax measuring approximately 30%. Left lung demonstrates interstitial p attern which is stable. Heart size stable. Postsurgical change right shoulder and arthropathy left oulder IMPRESSION: 1. Chest tube placement with hydropneumothorax on the right measuring approximately 30%
[2021-03-19] MEDS: SENNOSIDES-DOCUSATE SODIUM 1 EACH TAB PO SCH ×2 (09:28→20:08)
[2021-03-19] MEDS: LORATADINE 10 MG TAB PO SCH (09:28)
[2021-03-19] MEDS: METOPROLOL SUCCINATE (ER) 25 MG TAB.ER.24H PO SCH (09:29)
[2021-03-19] MEDS: ASPIRIN 325 MG TAB PO SCH (09:29)
[2021-03-19] MEDS: ESCITALOPRAM 10 MG TAB PO SCH (09:29)
[2021-03-19] MEDS: MULTIVITAMINS, THERA 1 EACH TAB PO SCH (09:29)
--- NOTE | 2021-03-19 12:45 | P.PN ---
Subjective Progress Note Date: 03/19/21 History of present illness: 81-year-old female patient of Dr. Yarbrough with past medical history of thrombocytosis followed Dr. Mitchell the past, history of hyperlipidemia hypertension, chronic back pain, GERD, was hospitalized recentlyfor worsening dyspnea shortness of breath found to have large pleural effusion patient subsequently was diagnosed with adenocarcinoma of the lung. Patient has been seen oncology since then. She presented to the emergency department today at [facility] with worsening dyspnea and shortness of breath for the last 3-4 days with worsening wheezes her symptom has been very severe with minimum exertion been severely symptomatic today patient called 911 and ended up coming to [facility] department by EMS was seen and evaluated with her testing including d-dimer was very high patient ended up going for CTA showed multi embolism of the lung. Patient also still showing lung mass. Pleural effusion on the right side as well. Was started on heparin drip consult pulmonary patient seen regularly and admit patient to the hospital for the above problem. From her last admission last time patient had severe shortness of breath was evaluated for pulmonary embolism which was negative but found to have large sided pleural effusion on the right side with negative Doppler the time as well. Patient had thoracentesis of the time came back apparently with malignant pleural effusion. Since then patient was diagnosed with adenocarcinoma. Also patient is known to have history of chronic leukocytosis and thrombocytosis has been seen oncology been treated with hydroxyurea. 03/16: Patient is on 3 L nasal cannula with pulse ox of 97% she is been afebrile, heart rate in the 60s and 70s, blood pressure 127/61. Patient states her breathing status is stable as long as she is sitting. She is complaining of back pain for which Tylenol and Stinnett will be added. She is requesting to be a DO NOT RESUSCITATE. Ultrasound of the bilateral lower extremity is positive for DVT bilaterally of the popliteal proximal calf veins. Consults in place for pulmonary medicine and oncology consult added. Patient is currently on heparin drip. 03/17: Patient remains afebrile, heart rate 70, blood pressure 119/58, pulse ox 97% on 3 L nasal cannula. Repeat blood work reveals WBC 12.4, hemoglobin 10.7, platelet count 259. Electrolytes normal, BUN 35 creatinine 1. Blood sugar 119. Patient is found to have a large hematoma on the left hip area. Sisters been asked to contact oncology with recommendations for anticoagulation at this poin t. She is currently on heparin drip. Bone scan revealed vertebral compression fractures in the thoracic spine may be due to osteoporotic change. No associated soft tissue mass on the CT. MRI may be of benefit. Correlate for osteoporotic compression fracture having developed after prior CAT scan done on 02/24/2021. CAT scan of the abdomen and pelvis revealed no suspicious mass or adenopathy to suggest metastatic disease. There is a 6.7 cm upper lateral left thigh heterogeneous fluid collection or intramuscular hematoma. CAT scan of the brain revealed no suspicious enhancing masses to suggest metastatic disease to the brain. Repeat chest x-ray reveals no significant interval change. Right pleural effusion and associated atelectasis, correlate for possible pneumonia. Patient is seen and followed by oncology as well as consult in place with cardiothoracic surgery planning for Pleurx catheter for recurrent right-sided pleural effusion. 03/18: Patient underwent IVC filter yesterday with Dr. Bennett. Oncology is planning for oral anticoagulation in the next few weeks/months if the patient does not exhibit any signs or symptoms of bleeding or unusual bruising with anticoagulations, she can referred back to vascular for removal of the filter. Pleurx catheter scheduled for Monday with cardiothoracic team. Hemoglobin has been stable at 10.2. WBC 11. Blood culture no growth at 48 hours. Patient has been afebrile, heart rate 96, blood pressure 161/63, pulse ox 91% on 4 L nasal c annula. Concerns from the patient. 03/19: Patient underwent right sided Pleurx catheter placement with Dr. Ruth. Patient complains of pain at the site but no new complaints otherwise. Pneumothorax on the right measuring approximately 30%. She has been afebrile, heart rate 96, blood pressure 147/74, pulse ox 91% on 4 L nasal cannula. cafeteria monitor is sinus rhythm. Repeat blood work will be ordered for tomorrow. Blood cultures no growth at 72 hours. Discharge plan is on Monday. ROS: Constitutional: Denies chills, Denies fever, Denies lethargy, Denies malaise, reports poor appetite, Denies weakness, Denies weight loss Eyes: denies decreased vision, denies diplopia, denies discharge, denies pain Ears: deny: decreased hearing Ears, nose, mouth and throat: Denies dental pain, Denies headache, Denies nasal discharge, Denies nose pain Cardiovascular: Denies chest pain, Denies decreased exercise tolerance, Denies edema, Denies high blood pressure, Denies irregular heart beat, Denies palpitations, Denies paroxysmal nocturnal dyspnea, Denies rapid heart beat, Denies shortness of breath Respiratory: Denies congestion, Denies cough, endorses cough with sputum, endorses dyspnea, Denies home oxygen, Denies wheezing Gastrointestinal: Denies abdominal pain, Denies change in bowel habits, Denies coffee ground emesis, Denies early satiety, Denies excessive gas, Denies heartburn, Denies hematemesis, Denies hematochezia, Denies loss of appetite, De nies nausea, Denies vomiting Genitourinary: Denies dysuria, Denies flank pain, Denies kidney stones, Denies menorrhagia, Denies urgency, Denies urinary frequency Musculoskeletal: Endorses gait dysfunction, endorses limitation of motion, Denies morning stiffness, Denies muscle cramps endorses back pain, uses the walker at baseline, reports hematoma left thigh Integumentary: Denies rash, Denies wounds, Denies brittle nails, Denies change in hair/nails, Denies darkening of skin Neurological: Denies balance difficulties, Denies change in speech, Denies double vision, Denies gait dysfunction, Denies loss of vision, Denies motor disturbance, Denies numbness, Denies paralysis, Denies paresthesias, Denies seizures Psychiatric: Denies anxiety, Denies depression Endocrine: Denies excessive sweating, Denies excessive thirst, Denies high blood sugars, Denies palpitations Hematologic/Lymphatic: Denies easy bruising, Denies lymphadenopathy Physical exam: - Constitutional General appearance: cooperative, no acute distress, obese, resting in recliner and appears to be comfortable - EENT Eyes: anicteric sclerae, PERRLA, normal appearance ENT: hearing grossly normal - Neck Neck: no lymphadenopathy, normal ROM, no other, no rigidity, no stridor, no thyromegaly - Respiratory Respiratory: bilateral: Decreased air entry on the right, dull on percussion on the right, no crackles no wheezing, sided Pleurx catheter in place. - Cardiovascular Rhythm: regular Heart sounds: normal: S1, S2 Abnormal Heart Sounds: no systolic murmur, no diastolic murmur, no rub, no S3 Gallop, no S4 Gallop, no click, no other - Gastrointestinal General gastrointestinal: normal bowel sounds, soft - Integumentary Integumentary: no rash, large hematoma on the left lateral hip - Neurologic Neurologic: CNII-XII intact - Musculoskeletal Musculoskeletal: gait normal, strength equal bilaterally - Psychiatric Psychiatric: A&O x's 3, appropriate affect Assessment and plan: 1 acute respiratory failure: Combination of acute multi-pulmonary embolism with bilateral lower extremity DVT, COPD exacerbation, lung cancer and recurrent metastatic right-sided pleural effusion. Patient is off heparin drip, continue DuoNeb treatments 4 times daily, post Pleurx catheter right side 03/19. 2 acute multi-pulmonary embolism and bilateral lower extremity DVT. Patient is status post IVC filter performed by Dr. Bennett on 03/17. Oncology is following, plan for eliquis eventually. 3 adenocarcinoma of the lung: Newly diagnosed patient, oncology is developing plan for chemotherapy/immunotherapy, workup in progress.. 4 recurrent large sided pleural effusion on the right side. Cardiothoracic surgery for Pleurx catheter. 5. Acute left hip hematoma status post IVC filter. No anticoagulation at this time 6. chronic obstructive pulmonary disease. Continue O2 continue updraft treatment with DuoNeb. 7. hypertension: Patient remain on metoprolol 25 mg daily and 50 mg at bedtime. 8 thrombocytosis: Patient has been on hydroxyurea seen oncology. 9 hypothyroidism: Continue patient on levothyroxine 50 g daily. 10 chronic history of peripheral neuropathy. Continue gabapentin and her milligrams at bedtime. 11 severe GERD. Protonix 40 mg daily. 12 DVT prophylaxis: Patient will be on anticoagulation. 13 recurrent depression: Has been on citalopram 10 mg daily. CODE STATUS: Full code. Discharge Plan Subacute rehab at [facility] on Monday Impression and plan of care have been directed as dictated by the signing physician. Tish Baldwin nurse practitioner acting as scribe for signing physician. Objective - Vital Signs Vital signs: Vital Signs Temp 98.1 F 03/19/21 08:50 Pulse 96 03/19/21 08:50 Resp 20 03/19/21 08:50 BP 147/74 03/19/21 08:50 Pulse Ox 91 L 03/19/21 08:50 Intake & Output 03/18/21 03/19/21 03/19/21 18:59 06:59 18:59 Intake Total 100 250 Output Total 50 306 Balance -50 100 -56 Weight 81.2 kg Intake: IV 100 250 Output: Urine 50 300 Stool 1 Estimated Blood Loss 5 Other: Voiding Method Bedside Commode Bedside Commode Bedpan Bedpan Diaper Diaper # Voids 2 1 - Labs CBC & Chem 7: 03/18/21 10:09 03/17/21 05:22 Labs: Abnormal Lab Results - Last 24 Hours (Table) 03/18/21 Range/Units 10:09 WBC 11.0 H (3.8-10.6) k/uL Neutrophils # (Manual) 9.30 H (1.3-7.7) k/uL Nucleated RBCs 3 H (0-0) /100 WBC Microbiology - Last 24 Hours (Table) 03/15/21 10:15 Blood Culture - Preliminary Blood No Growth after 72 hours 03/15/21 10:30 Blood Culture - Preliminary Blood No Growth after 72 hours
--- NOTE | 2021-03-19 13:35 | P.PN ---
Subjective Progress Note Date: 03/19/21 This is a 81-year-old female patient of Dr. Yarbrough with past history of 60+ year smoking history which is currently in remission, COPD, on home oxygen since her most recent admission in February 2021, newly diagnosed lung cancer. Patient was recently hospitalized in February 2021 and we saw the patient in consultation, and patient had a large right-sided pleural effusion which was loculated. Prior to the patient was treated for pneumonia that was not improving with several rounds of antibiotics. Interventional radiology was consulted and did a right-sided thoracentesis and removed 750 mL of dark colored fluid, which was sent for cytology and analysis. Pleural fluid analysis showed exudative fluid and cytology was positive for pulmonary adenocarcinoma. Pleural fluid cultures showed no organisms. Patient qualified for home oxygen, she was sent home on 2 L, she was medically optimized and discharged home on 03/01/2021 with instructions to follow-up with Dr. Cutler in the office on 03/12/2021, she was supposed to see Dr. Gonzáles from medical oncology. Patient was seen in the office on 03/12/[address] Cutler, and informed that she has stage IV pulmonary adenocarcinoma. She was having some ongoing shortness of breath and the chest x-ray was showing recurrence of the right-sided pleural effusion with some right basilar atelectasis and loculated right-sided pleural effusion. Patient was supposed to see Dr. Alex mason on an outpatient basis for insertion of a Pleurx catheter. She was supposed to be scheduled for an outpatient PET scan as well. On 03/15/2021 patient presented to the emergency department with worsening shortness of breath, and patient was having a difficult time ambulating. She lives by herself in an apartment. Chest x-ray showed right pleural effusion and associated atelectasis. CTA chest was completed related to elevated d-dimer of 29.45, and it showed multiple left lung pulmonary emboli and possible early airspace disease. Venous Dopplers showed nonocclusive DVT in bilateral popliteal and proximal calf veins. Patient denies any chest pain, no hemoptysis, no fever or chills, no lightheadedness, no cough or phlegm production. No swelling in lower extremities, no calf tenderness. She was started on heparin infusion. And this consult was initiated Progress note dated 03/17/2021. This is a 81-year-old female with a history of respiratory failure secondary to recurrent right-sided malignant effusion, and acute pulmonary emboli. The patient had acute pulmonary emboli in the left lung. She's newly diagnosed pulmonary adenocarcinoma, stage IV. The diagnosis is made by thoracentesis, and fluid analysis, on March 01. She has not started chemotherapy as yet. She has an extensive smoking history, hypertension, hyperlipidemia, and COPD. Currently, the patient is on 3 L nasal cannula. She's receiving IV heparin. She complains of mild shortness of breath on exertion, and pain in the left chest. Current laboratory data includes a white count 12.4, hemoglobin 10.7, hematocrit 33.7, and a platelet count 259,000. PTT is 52.8. Sodium 138, potassium 4.3, chlorides 105, CO2 23, anion gap 10, BUN 35, creatinine 1.04. Progress note dated 03/18/2021. 81-year-old female, again seen in room 382. She's currently on 4 L nasal cannula. The patient came in with a recurrent right-sided malignant effusion. She apparently is going to have a Pleurx catheter placed tomorrow by cardiothoracic surgery. She had an IVC filter placed by Dr. Bennett on March 17. White count 11, hemoglobin 10.2, hematocrit 31.7, and platelet count 259,000. The patient is not complaining of any shortness of breath, chest pain, cough, wheezing, or phlegm production. She does have some mild shortness of breath on exertion. She has not started chemotherapy as yet. She has a history of extensive tobacco use, hypertension, hyperlipidemia, and COPD. The patient is seen today 03/19/2021 in follow-up on the selective care unit. She is awake and alert in no acute distress. She did undergo Pleurx catheter placement today on the right. Chest x-ray reveals right-sided chest tube in place with a right-sided pleural effusion and consolidation with persistent hydropneumothorax measuring approximately 30%. Left lung demonstrates inter stitial pattern which is stable. She is maintaining good O2 saturations in the 90s on 6 L nasal cannula. She is working well with the incentive spirometer. She's been afebrile. Hemodynamically stable. Blood cultures revealed no growth. No new labs today. Objective - Vital Signs Vital signs: Vital Signs Temp 98.2 F 03/19/21 12:00 Pulse 90 03/19/21 12:19 Resp 18 03/19/21 12:19 BP 111/65 03/19/21 12:00 Pulse Ox 91 L 03/19/21 12:00 Intake & Output 03/18/21 03/19/21 03/19/21 18:59 06:59 18:59 Intake Total 100 250 Output Total 50 306 Balance -50 100 -56 Weight 81.2 kg Intake: IV 100 250 Output: Urine 50 300 Stool 1 Estimated Blood Loss 5 Other: Voiding Method Bedside Commode Bedside Commode Bedpan Bedpan Diaper Diaper # Voids 2 1 - Exam No acute distress, oriented 3. Currently on 6 L nasal cannula. Saturations are 91%. HEENT examination is grossly unremarkable. Neck supple. Full range of motion. No adenopathy thyromegaly or neck vein distention. Cardiovascular examination reveals regular rhythm rate. S1-S2 normal. No S3 or S4. No discernible murmur noted. Heart rate 80 bpm. Lungs reveal breath sounds at the right base. Scattered rhonchi are noted on th e right. Right-sided Pleurx catheter in place. No wheezes or crackles. Breath sounds on the left are clear. Abdomen soft bowel sounds are heard. No masses or tenderness. Extremities are intact. No cyanosis clubbing or edema. Skin is without rash or lesion. Neurologic examination is brief but nonfocal. - Labs CBC & Chem 7: 03/18/21 10:09 03/17/21 05:22 Labs: Microbiology - Last 24 Hours (Table) 03/15/21 10:15 Blood Culture - Preliminary Blood No Growth after 96 hours 03/15/21 10:30 Blood Culture - Preliminary Blood No Growth after 96 hours Assessment and Plan Assessment: 1 Acute hypoxic respiratory failure related to recurrent right-sided malignant pleural effusion and acute pulmonary emboli, Pleurx catheter placed today 03/19/2021. 2 Acute pulmonary emboli in the left lung, and acute nonocclusive bilateral popliteal DVTs and proximal calf veins, status post IVC filter placed by vascular surgery on 03/17/2021. 3 Newly diagnosed pulmonary adenocarcinoma stage IV, the diagnosis was made from the cytology of the right-sided pleural fluid on 03/01/2021, that showed pulmonary adenocarcinoma. Patient was referred to medical oncology, and was supposed to see Dr. Gonzáles in consultation and complete an outpatient PET scan. 4 Extensive history of smoking, 60+ years, in remission for the past 4 weeks. 5 Hypertension. 6 Hyperlipidemia. 7 COPD, has been placed on oxygen recently after last hospitalization. 8 Hypothyroidism. 9 Chronic back pain with peripheral neuropathy. 10 Depression. Plan: The patient was seen and evaluated Pleurx catheter placed on the right today Currently on 6 L high flow nasal cannula Titrate the FiO2 as tolerated Continue to work with the incentive spirometer We will continue to follow I, the cosigning physician, performed a history & physical examination of the patient. Lungs sounds crackles in the right base. Maintaining good O2 saturations in the 90s on 6 L high flow nasal cannula. I discussed the assessment and plan of care with my nurse practitioner, Lisa Ruiz. I attest to the above note as dictated by her.
[2021-03-19] MEDS: GABAPENTIN 100 MG CAP PO SCH (20:08)
[2021-03-19] MEDS: METOPROLOL SUCCINATE (ER) 50 MG TAB.ER.24H PO SCH (20:08)
[2021-03-19] MEDS: ALPRAZolam 0.5 MG TAB PO SCH (20:08)
[2021-03-19] MEDS: HYDROXYUREA 500 MG CAP PO SCH (22:02)
[2021-03-19] MEDS: HYDROcodone/APAP 7.5-325MG 1 EACH TAB PO PRN (22:44)
[2021-03-20] MEDS: PANTOPRAZOLE 40 MG TABLET PO SCH ×2 (06:23→19:51)
[2021-03-20] MEDS: LEVOTHYROXINE 50 MCG TAB PO SCH (06:23)
--- NOTE | 2021-03-20 07:42 | XR ---
EXAMINATION TYPE: XR chest 1V portable DATE OF EXAM: 03/20/2021 COMPARISON: 03/19/2021 HISTORY: Shortness of breath. TECHNIQUE: Single frontal view of the chest is obtained. FINDINGS: There is no change in the placement of the right chest tube and loculated right hydropneum othorax. There is diffuse interstitial infiltrate in the left lung. The heart size is normal. There is a right reverse shoulder otherwise the osseous structures are inta ct. IMPRESSION: No change in the acute cardiopulmonary disease as described above.
[2021-03-20 07:46] LABS: ALT 21 U/L (4-34); AST 28 U/L (14-36); African American GFR (CKD) >90 (>60 ml/min/1.73 sqM); Albumin 2.7 g/dL (3.5-5.0); Alkaline Phosphatase 74 U/L (38-126); Anion Gap 7 mmol/L; Blood Urea Nitrogen 20 mg/dL (7-17); Calcium 8.7 mg/dL (8.4-10.2); Carbon Dioxide 26 mmol/L (22-30); Chloride 102 mmol/L (98-107); Glucose 116 mg/dL (74-99); Magnesium 1.3 mg/dL (1.6-2.3); Non-African American GFR(CKD) 85 (>60 ml/min/1.73 sqM); Potassium 4.2 mmol/L (3.5-5.1); Sodium 135 mmol/L (137-145); Total Bilirubin 0.5 mg/dL (0.2-1.3); Total Protein 5.6 g/dL (6.3-8.2)
[2021-03-20 07:54] LABS: Anisocytosis Slight; HCT 29.7 % (34.0-46.0); HGB 9.6 gm/dL (11.4-16.0); Hypochromasia Slight; MCH 38.2 pg (25.0-35.0); MCHC 32.2 g/dL (31.0-37.0); MCV 118.6 fL (80.0-100.0); Macrocytosis Marked; Platelet Count 285 k/uL (150-450); RDW 16.4 % (11.5-15.5)
[2021-03-20] MEDS: IPRATROPIUM-ALBUTEROL 3 ML NEB INHALATION SCH ×4 (08:10→20:55)
[2021-03-20] MEDS: METOPROLOL SUCCINATE (ER) 25 MG TAB.ER.24H PO SCH (09:10)
[2021-03-20] MEDS: MULTIVITAMINS, THERA 1 EACH TAB PO SCH (09:10)
[2021-03-20] MEDS: SENNOSIDES-DOCUSATE SODIUM 1 EACH TAB PO SCH ×2 (09:10→19:50)
[2021-03-20] MEDS: LORATADINE 10 MG TAB PO SCH (09:10)
[2021-03-20] MEDS: ASPIRIN 325 MG TAB PO SCH (09:10)
[2021-03-20] MEDS: ESCITALOPRAM 10 MG TAB PO SCH (09:12)
[2021-03-20 09:37] LABS: Neutrophils % (M) 78 %; Nucleated Red Blood Cells 2 /100 WBC (0-0); Total Cells Counted 200
[2021-03-20 09:38] LABS: Lymphocytes # (M) 1.36 k/uL (1.0-4.8); Monocytes # (M) 0.78 k/uL (0-1.0); Neutrophils # (M) 7.57 k/uL (1.3-7.7); WBC 9.7 k/uL (3.8-10.6)
[2021-03-20 09:40] LABS: Polychromasia Present
--- NOTE | 2021-03-20 10:07 | P.PN ---
Subjective Progress Note Date: 03/20/21 Principal diagnosis: Recurrent malignant right-sided pleural effusion, left-sided pulmonary emboli, bilateral lower extremity DVTs, acute on chronic hypoxic respiratory failure. P ast medical history significant for recent diagnosis of pulmonary adenocarcinoma diagnosed from pleural fluid of last thoracentesis 03/01/21, COPD, home oxygen at 2 L nasal cannula, chronic tobacco dependence with recent smoking cessation, hypertension, hypothyroid, thrombocytosis, currently on Hydrea, follows outpatient with Dr. Mitchell. POD #2 fluoroscopic assisted placement of inferior vena cava filter performed by Dr. Bennett. POD #1 right Pleurx catheter placement with fluoroscopy. The patient was seen in follow-up today 03/20/2021 at her bedside on the cardiac stepdown unit. Currently she is awake, alert and oriented 3 and is in no acute apparent distress. She denies any complaints of pain at this time and reports her breathing feels much improved today, although continues to have some episodes of shortness of breath with activity. Her right sided Pleurx catheter was drained for 500 mL of thin serosanguineous drainage this morning and the patient tolerated the procedure without incident. She is currently on 5 L nasal cannula with oxygen saturations 94%. She is achieving 750-1000 mL on her incentive spirometry with encouragement and has been afebrile the last 24 hours. Pleurx catheter teaching was completed with the patient and will continue to reinforce teaching. Objective - Vital Signs Vital signs: Vital Signs Temp 98.3 F 03/20/21 08:00 Pulse 94 03/20/21 08:22 Resp 18 03/20/21 08:22 BP 107/49 03/20/21 08:00 Pulse Ox 94 L 03/20/21 08:00 Intake & Output 03/19/21 03/20/21 03/20/21 18:59 06:59 18:59 Intake Total 670 240 120 Output Total 507 500 Balance 163 240 -380 Weight 80.5 kg Intake: IV 250 Oral 420 240 120 Output: Chest Tube Drainage 500 Pleural Catheter Right 500 Upper Right Pleural/ Mediastinal Urine 500 Stool 2 Estimated Blood Loss 5 Other: Voiding Method Bedside Commode Bedside Commode Bedpan Bedpan Diaper Diaper # Voids 1 - Exam CONSTITUTIONAL: Appears comfortable, cooperative, no acute distress. RESPIRATORY: Lungs sounds diminished bilaterally, right greater than left. Respirations are symmetrical and nonlabored at rest. Currently on 5 L nasal cannula with oxygen saturation 94%. Able to achieve 750-1000 mL on her incentive spirometry. Strong cough. Right chest Pleurx catheter remains in anant ce with dressing clean, dry and intact. CARDIOVASCULAR: S1, S2 present. Regular rate and rhythm, sinus rhythm on telemetry. Palpable peripheral pulses bilaterally. No edema present. GASTROINTESTINAL: Abdomen soft, nontender, nondistended. Active bowel sounds present 4 quadrants. Tolerating diet. GENITOURINARY: Continues to void INTEGUMENTARY: Skin is warm and dry with evidence of good perfusion. NEUROLOGIC: Cranial nerves II through XII intact MUSKULOSKELETAL: Able to move all extremities, strength equal bilaterally PSYCHIATRIC: Alert and oriented to person place and time, appropriate affect, intact judgment and insight - Allied health notes Allied health notes reviewed: nursing - Labs CBC & Chem 7: 03/20/21 07:10 03/20/21 07:10 Labs: Abnormal Lab Results - Last 24 Hours (Table) 03/20/21 03/20/21 Range/Units 07:10 07:10 RBC 2.50 L (3.80-5.40) m/uL Hgb 9.6 L (11.4-16.0) gm/dL Hct 29.7 L (34.0-46.0) % MCV 118.6 H (80.0-100.0) fL MCH 38.2 H (25.0-35.0) pg RDW 16.4 H (11.5-15.5) % Nucleated RBCs 2 H (0-0) /100 WBC Macrocytosis Marked A Sodium 135 L (137-145) mmol/L BUN 20 H (7-17) mg/dL Glucose 116 H (74-99) mg/dL Magnesium 1.3 L (1.6-2.3) mg/dL Total Protein 5.6 L (6.3-8.2) g/dL Albumin 2.7 L (3.5-5.0) g/dL Microbiology - Last 24 Hours (Table) 03/15/21 10:15 Blood Culture - Preliminary Blood No Growth after 96 hours 03/15/21 10:30 Blood Culture - Preliminary Blood No Growth after 96 hours - Imaging and Cardiology Chest x-ray: report reviewed, image reviewed Assessment and Plan Assessment: 1. Recurrent malignant right-sided pleural effusion, last thoracentesis 03/01/2021 with removal of 750 mL fluid cytology positive for pulmonary adenocarcinoma, status post placement of right sided Pleurx catheter under fluoroscopy 2. Left-sided pulmonary emboli, bilateral lower extremity DVTs, status post placement of IVC filter by Dr. Bennett 3. Acute on chronic hypoxic respiratory failure 4. COPD, on home oxygen at 2 L nasal cannula 5. Chronic tobacco dependence with recent smoking cessation 6. History of hypertension 7. Hypothyroid 8. History of thrombocytosis, currently on Hydrea, follows outpatient with Dr. Mitchell Plan: 1. We will continue to drain her right sided Pleurx catheter daily until she is discharged to the extended care facility. Once she is discharged, at the ext ended care facility they can drain the Pleurx catheter 3 times per week and as needed per the patient's symptoms. Discharge instructions for her Pleurx catheter have been placed in the discharge plan. 2. Medical management of other comorbidities per primary care, oncology 3. Encourage incentive spirometry use 10 times every hour while awake. Wean O2 as tolerated 4. Encourage continued smoking cessation 5. More recommendations to follow based on patient's clinical course. Time with Patient: Greater than 30
[2021-03-20] MEDS ORDERED: Magnesium Replacement Protocol 1 EACH MISC MISCELLANE PRN (12:19)
--- NOTE | 2021-03-20 16:25 | P.PN ---
Subjective Progress Note Date: 03/20/21 Principal diagnosis: Shortness of breath. This is a 81-year-old female patient of Dr. Yarbrough with past history of 60+ year smoking history which is currently in remission, COPD, on home oxygen since her most recent admission in February 2021, newly diagnosed lung cancer. Antwan gonzalez was recently hospitalized in February 2021 and we saw the patient in consultation, and patient had a large right-sided pleural effusion which was loculated. Prior to the patient was treated for pneumonia that was not improving with several rounds of antibiotics. Interventional radiology was consulted and did a right-sided thoracentesis and removed 750 mL of dark colored fluid, which was sent for cytology and analysis. Pleural fluid analysis showed exudative fluid and cytology was positive for pulmonary adenocarcinoma. Pleural fluid cultures showed no organisms. Patient qualified for home oxygen, she was sent home on 2 L, she was medically optimized and discharged home on 03/01/2021 with instructions to follow-up with Dr. Cutler in the office on 03/12/2021, she was supposed to see Dr. Gonzáles from medical oncology. Patient was seen in the office on 03/12/[address] Cutler, and informed that she has stage IV pulmonary adenocarcinoma. She was having some ongoing shortness of breath and the chest x-ray was showing recurrence of the right-sided pleural effusion with some right basilar atelectasis and loculated right-sided pleural effusion. Patient was supposed to see Dr. Alex mason on an outpatient basis for insertion of a Pleurx catheter. She was supposed to be scheduled for an outpatient PET scan as well. On 03/15/2021 patient presented to the emergency department with worsening shortness of breath, and patient was having a difficult time ambulating. She lives by herself in an apartment. Chest x-ray showed right pleural effusion and associated atelectasis. CTA chest was completed related to elevated d-dimer of 29.45, and it showed multiple left lung pulmonary emboli and possible early airspace disease. Venous Dopplers showed nonocclusive DVT in bilateral popliteal and proximal calf veins. Patient denies any chest pain, no hemoptysis, no fever or chills, no lightheadedness, no cough or phlegm production. No swelling in lower extremities, no calf tenderness. She was started on heparin infusion. And this consult was initiated Progress note dated 03/17/2021. This is a 81-year-old female with a history of respiratory failure secondary to recurrent right-sided malignant effusion, and acute pulmonary emboli. The patient had acute pulmonary emboli in the left lung. She's newly diagnosed pulmonary adenocarcinoma, stage IV. The diagnosis is made by thoracentesis, and fluid analysis, on March 01. She has not started chemotherapy as yet. She has an extensive smoking history, hypertension, hyperlipidemia, and COPD. Currently, the patient is on 3 L nasal cannula. She's receiving IV heparin. She complains of mild shortness of breath on exertion, and pain in the left chest. Current laboratory data includes a white count 12.4, hemoglobin 10.7, hematocrit 33.7, and a platelet count 259,000. PTT is 52.8. Sodium 138, potassium 4.3, chlorides 105, CO2 23, anion gap 10, BUN 35, creatinine 1.04. Progress note dated 03/18/2021. 81-year-old female, again seen in room 382. She's currently on 4 L nasal cannula. The patient came in with a recurrent right-sided malignant effusion. She apparently is going to have a Pleurx catheter placed tomorrow by cardiothoracic surgery. She had an IVC filter placed by Dr. Bennett on March 17. White count 11, hemoglobin 10.2, hematocrit 31.7, and platelet count 259,000. The patient is not complaining of any shortness of breath, chest pain, cough, wheezing, or phlegm production. She does have some mild shortness of breath on exertion. She has not started chemotherapy as yet. She has a history of extensive tobacco use, hypertension, hyperlipidemia, and COPD. Progress note dated 03/20/2021. 81-year-old female, again seen in room 382. The patient's currently still on O2, and 5 L. No IV fluids. A couple days ago, one of the vascular surgeon place an IVC filter. It was done on March 17. Also, Dr. Ruth place a Pleurx catheter in this patient. It was done on the right side. The patient looks to be doing reasonably well. She is hoping to be discharged in the next 24-48 hours. In addition to lung cancer, she has a history of hypertension, hyperlipidemia, and COPD. The Pleurx catheter was placed on March 19. White count 9.7, hemoglobin 9.6, hematocrit 29.7, and platelet count 285,000. Sodium 135, potassium 4.2, chlorides 102, CO2 26, anion gap 7, BUN 20, with a creatinine of 0.64. Chest chest x-ray shows diffuse infiltrate in the left lung. There is a right-sided loculated hydropneumothorax. Objective - Vital Signs Vital signs: Vital Signs Temp 98.5 F 03/20/21 12:00 Pulse 95 03/20/21 15:51 Resp 19 03/20/21 12:00 BP 114/71 03/20/21 12:00 Pulse Ox 93 L 03/20/21 15:44 Intake & Output 03/19/21 03/20/21 03/20/21 18:59 06:59 18:59 Intake Total 670 240 120 Output Total 507 500 Balance 163 240 -380 Weight 80.5 kg Intake: IV 250 Oral 420 240 120 Output: Chest Tube Drainage 500 Pleural Catheter Right 500 Upper Right Pleural/ Mediastinal Urine 500 Stool 2 Estimated Blood Loss 5 Other: Voiding Method Bedside Commode Bedside Commode Bedpan Bedpan Diaper Diaper # Voids 1 - Exam No acute distress, oriented 3. Currently on 5 L nasal cannula. Saturations are 95%. HEENT examination is grossly unremarkable. Neck supple. Full range of motion. No adenopathy thyromegaly or neck vein distention. Cardiovascular examination reveals regular rhythm rate. S1-S2 normal. No S3 or S4. No discernible murmur noted. Heart [id number] bpm. Lungs reveal breath sounds at the right base. Scattered rhonchi are noted on the right. No wheezes or crackles. Breath sounds on the left are clear. Abdomen soft bowel sounds are heard. No masses or tenderness. Extremities are intact. No cyanosis clubbing or edema. Skin is without rash or lesion. Neurologic examination is brief but nonfocal. - Labs CBC & Chem 7: 03/20/21 07:10 03/20/21 07:10 Labs: Abnormal Lab Results - Last 24 Hours (Table) 03/20/21 03/20/21 Range/Units 07:10 07:10 RBC 2.50 L (3.80-5.40) m/uL Hgb 9.6 L (11.4-16.0) gm/dL Hct 29.7 L (34.0-46.0) % MCV 118.6 H (80.0-100.0) fL MCH 38.2 H (25.0-35.0) pg RDW 16.4 H (11.5-15.5) % Nucleated RBCs 2 H (0-0) /100 WBC Macrocytosis Marked A Sodium 135 L (137-145) mmol/L BUN 20 H (7-17) mg/dL Glucose 116 H (74-99) mg/dL Magnesium 1.3 L (1.6-2.3) mg/dL Total Protein 5.6 L (6.3-8.2) g/dL Albumin 2.7 L (3.5-5.0) g/dL Microbiology - Last 24 Hours (Table) 03/15/21 10:15 Blood Culture - Preliminary Blood No Growth after 120 hours 03/15/21 10:30 Blood Culture - Preliminary Blood No Growth after 120 hours Assessment and Plan Assessment: #1. Acute hypoxic respiratory failure related to recurrent right-sided malignant pleural effusion and acute pulmonary emboli, with anticipated Pleurx catheter placement on 03/19/2021. #2. Acute pulmonary emboli in the left lung, and acute nonocclusive bilateral popliteal DVTs and proximal calf veins, status post IVC filter placed by vascular surgery, on 03/17/2021. #3. Newly diagnosed pulmonary adenocarcinoma stage IV, the diagnosis was made from the cytology of the right-sided pleural fluid on 03/01/2021, that showed pulmonary adenocarcinoma. Patient was referred to medical oncology, and was supposed to see Dr. Gonzáles in consultation and complete an outpatient PET scan. #4. Extensive history of smoking, 60+ years, in remission for the past 4 weeks. #5. Hypertension. #6. Hyperlipidemia. #7. COPD, has been placed on oxygen recently after last hospitalization. #8. Hypothyroidism. #9. Chronic back pain with peripheral neuropathy. #10. Depression. Plan: Plan dated 03/17/2021. Cardiothoracic surgery was consulted for possible Pleurx catheter placement, in the right pleural space, for the malignant right-sided effusion. The patient continues on heparin. She is on 3 L nasal cannula. She does not appear to have much in the way of respiratory distress. Medical oncology was asked to see the patient as well. They've not started any treatment as yet on this patient. Prognosis is very guarded. The patient is a DO NOT RESUSCITATE patient. We will continue to follow and make recommendations where appropriate. Plan dated 03/18/2021. The patient will be seen by cardiothoracic surgery tomorrow for placement of a right-sided Pleurx catheter. Yesterday, she had a IVC filter placed by Dr. Bennett and vascular surgery. She has been seen by medical oncology. Her prognosis is poor. She is a DO NOT RESUSCITATE patient. We will continue to follow make recommendations where appropriate. Currently, she remains on 4 L n cb cannula. She's not receiving any IV fluids. Her lab data was reviewed. Plan dated 03/20/2021. The Pleurx was placed by Dr. Ruth on March 19. The IVC filter was placed by Dr. Bennett. The patient has been seen by medical oncology. The patient is a DO NOT RESUSCITATE patient. Currently, she is on 5 L nasal cannula. We will continue to follow make recommendations where appropriate. Labs, x-rays, medications are reviewed. Overall prognosis, obviously is not good. We will continue to follow. Time with Patient: Less than 30
[2021-03-20] MEDS: MAGNESIUM SULFATE-D5W PMX 1 GM in DEXTROSE/WATER 1 100ML.BAG IVPB SCH ×2 (16:37→18:21)
--- NOTE | 2021-03-20 18:09 | P.PN ---
Subjective Progress Note Date: 03/20/21 History of present illness: 81-year-old female patient of Dr. Yarbrough with past medical history of thrombocytosis followed Dr. Mitchell the past, history of hyperlipidemia hypertension, chronic back pain, GERD, was hospitalized recentlyfor worsening dyspnea shortness of breath found to have large pleural effusion patient subsequently was diagnosed with adenocarcinoma of the lung. Patient has been seen oncology since then. She presented to the emergency department today at [facility] with worsening dyspnea and shortness of breath for the last 3-4 days with worsening wheezes her symptom has been very severe with minimum exertion been severely symptomatic today patient called 911 and ended up coming to [facility] department by EMS was seen and evaluated with her testing including d-dimer was very high patient ended up going for CTA showed multi embolism of the lung. Patient also still showing lung mass. Pleural effusion on the right side as well. Was started on heparin drip consult pulmonary patient seen regularly and admit patient to the hospital for the above problem. From her last admission last time patient had severe shortness of breath was evaluated for pulmonary embolism which was negative but found to have large sided pleural effusion on the right side with negative Doppler the time as well. Patient had thoracentesis of the time came back apparently with malignant pleural effusion. Since then patient was diagnosed with adenocarcinoma. Also patient is known to have history of chronic leukocytosis and thrombocytosis has been seen oncology been treated with hydroxyurea. 03/16: Patient is on 3 L nasal cannula with pulse ox of 97% she is been afebrile, heart rate in the 60s and 70s, blood pressure 127/61. Patient states her breathing status is stable as long as she is sitting. She is complaining of back pain for which Tylenol and [place] will be added. She is requesting to be a DO NOT RESUSCITATE. Ultrasound of the bilateral lower extremity is positive for DVT bilaterally of the popliteal proximal calf veins. Consults in place for pulmonary medicine and oncology consult added. Patient is currently on heparin drip. 03/17: Patient remains afebrile, heart rate 70, blood pressure 119/58, pulse ox 97% on 3 L nasal cannula. Repeat blood work reveals WBC 12.4, hemoglobin 10.7, platelet count 259. Electrolytes normal, BUN 35 creatinine 1. Blood sugar 119. Patient is found to have a large hematoma on the left hip area. Sisters been asked to contact oncology with recommendations for anticoagulation at this poi nt. She is currently on heparin drip. Bone scan revealed vertebral compression fractures in the thoracic spine may be due to osteoporotic change. No associated soft tissue mass on the CT. MRI may be of benefit. Correlate for osteoporotic compression fracture having developed after prior CAT scan done on 02/24/2021. CAT scan of the abdomen and pelvis revealed no suspicious mass or adenopathy to suggest metastatic disease. There is a 6.7 cm upper lateral left thigh heterogeneous fluid collection or intramuscular hematoma. CAT scan of the brain revealed no suspicious enhancing masses to suggest metastatic disease to the brain. Repeat chest x-ray reveals no significant interval change. Right pleural effusion and associated atelectasis, correlate for possible pneumonia. Patient is seen and followed by oncology as well as consult in place with cardiothoracic surgery planning for Pleurx catheter for recurrent right-sided pleural effusion. 03/18: Patient underwent IVC filter yesterday with Dr. Bennett. Oncology is planning for oral anticoagulation in the next few weeks/months if the patient does not exhibit any signs or symptoms of bleeding or unusual bruising with anticoagulations, she can referred back to vascular for removal of the filter. Pleurx catheter scheduled for Monday with cardiothoracic team. Hemoglobin has been stable at 10.2. WBC 11. Blood culture no growth at 48 hours. Patient has been afebrile, heart rate 96, blood pressure 161/63, pulse ox 91% on 4 L nasal cannula. Concerns from the patient. 03/19: Patient underwent right sided Pleurx catheter placement with Dr. Ruth. Patient complains of pain at the site but no new complaints otherwise. Pneumothorax on the right measuring approximately 30%. She has been afebrile, heart rate 96, blood pressure 147/74, pulse ox 91% on 4 L nasal cannula. surveillance monitor is sinus rhythm. Repeat blood work will be ordered for tomorrow. Blood cultures no growth at 72 hours. Discharge plan is on Monday. 03/20 Patient had Pleurx catheter -related hydrothorax, patient is comfortable, no nausea no vomiting, still with decreased appetite, O2 at 5 L nasal cannula, and has multiple comorbidities, no current IV medications infusing, we'll going to hold off any midline iciness is might need this for future infusions, changed to oral admission supplementation, 400 oxide admission, twice a day for 14 s hakes, for supplementation. Anticipate discharge, Monday ROS: Constitutional: Denies chills, Denies fever, Denies lethargy, Denies malaise, reports poor appetite, Denies weakness, Denies weight loss Eyes: denies decreased vision, denies diplopia, denies discharge, denies pain Ears: deny: decreased hearing Ears, nose, mouth and throat: Denies dental pain, Denies headache, Denies nasal discharge, Denies nose pain Cardiovascular: Denies chest pain, Denies decreased exercise tolerance, Denies edema, Denies high blood pressure, Denies irregular heart beat, Denies palpitations, Denies paroxysmal nocturnal dyspnea, Denies rapid heart beat, Denies shortness of breath Respiratory: Denies congestion, Denies cough, endorses cough with sputum, endorses dyspnea, Denies home oxygen, Denies wheezing Gastrointestinal: Denies abdominal pain, Denies change in bowel habits, Denies coffee ground emesis, Denies early satiety, Denies excessive gas, Denies heartburn, Denies hematemesis, Denies hematochezia, Denies loss of appetite, Denies nausea, Denies vomiting Genitourinary: Denies dysuria, Denies flank pain, Denies kidney stones, Denies menorrhagia, Denies urgency, Denies urinary frequency Musculoskeletal: Endorses gait dysfunction, endorses limitation of motion, Denies morning stiffness, Denies muscle cramps endorses back pain, uses the walker at baseline, reports hematoma left thigh Integumentary: Denies rash, Denies wounds, Denies brittle nails, Denies change in hair/nails, Denies darkening of skin Neurological: Denies balance difficulties, Denies change in speech, Denies double vision, Denies gait dysfunction, Denies loss of vision, Denies motor disturbance, Denies numbness, Denies paralysis, Denies paresthesias, Denies seizures Psychiatric: Denies anxiety, Denies depression Endocrine: Denies excessive sweating, Denies excessive thirst, Denies high blood sugars, Denies palpitations Hematologic/Lymphatic: Denies easy bruising, Denies lymphadenopathy Physical exam: - Constitutional General appearance: cooperative, no acute distress, obese, resting in recliner and appears to be comfortable - EENT Eyes: anicteric sclerae, PERRLA, normal appearance ENT: hearing grossly normal - Neck Neck: no lymphadenopathy, normal ROM, no other, no rigidity, no stridor, no thyromegaly - Respiratory Respiratory: bilateral: Decreased air entry on the right, dull on percussion on the right, no crackles no wheezing, sided Pleurx catheter in place. - Cardiovascular Rhythm: regular Heart sounds: normal: S1, S2 Abnormal Heart Sounds: no systolic murmur, no diastolic murmur, no rub, no S3 Gallop, no S4 Gallop, no click, no other - Gastrointestinal General gastrointestinal: normal bowel sounds, soft - Integumentary Integumentary: no rash, large hematoma on the left lateral hip - Neurologic Neurologic: CNII-XII intact - Musculoskeletal Musculoskeletal: gait normal, strength equal bilaterally - Psychiatric Psychiatric: A&O x's 3, appropriate affect Assessment and plan: 1 acute respiratory failure: Combination of acute multi-pulmonary embolism with bilateral lower extremity DVT, COPD exacerbation, lung cancer and recurrent metastatic right-sided pleural effusion. Patient is off heparin drip, continue DuoNeb treatments 4 times daily, post Pleurx catheter right side 03/19. 2 acute multi-pulmonary embolism and bilateral lower extremity DVT. Patient is status post IVC filter performed by Dr. Bennett on 03/17. Oncology is following, plan for eliquis eventually. 3 adenocarcinoma of the lung: Newly diagnosed patient, oncology is developing plan for chemotherapy/immunotherapy, workup in progress.. 4 recurrent large sided pleural effusion on the right side. Cardiothoracic surgery for Pleurx catheter. 5. Acute left hip hematoma status post IVC filter. No anticoagulation at this time 6. chronic obstructive pulmonary disease. Continue O2 continue updraft treatment with DuoNeb. 7. hypertension: Patient remain on metoprolol 25 mg daily and 50 mg at bedtime. 8 thrombocytosis: Patient has been on hydroxyurea seen oncology. 9 hypothyroidism: Continue patient on levothyroxine 50 g daily. 10 chronic history of peripheral neuropathy. Continue gabapentin and her milligrams at bedtime. 11 severe GERD. Protonix 40 mg daily. 12 DVT prophylaxis: Patient will be on anticoagulation. 13 recurrent depression: Has been on citalopram 10 mg daily. CODE STATUS: Full code. prognosis guarded Protein calorie nutrition, with malignancy related anorexia to the mentation, might need Marinol, Discharge Plan Subacute rehab at [facility] on Monday Impression and plan of care have been directed as dictated by the signing physician. Tish Baldwin nurse practitioner acting as scribe for signing physician. Objective - Vital Signs Vital signs: Vital Signs Temp 98.5 F 03/20/21 12:00 Pulse 95 03/20/21 15:51 Resp 19 03/20/21 12:00 BP 114/71 03/20/21 12:00 Pulse Ox 93 L 03/20/21 15:44 Intake & Output 03/19/21 03/20/21 03/20/21 18:59 06:59 18:59 Intake Total 670 240 120 Output Total 507 500 Balance 163 240 -380 Weight 80.5 kg Intake: IV 250 Oral 420 240 120 Output: Chest Tube Drainage 500 Pleural Catheter Right 500 Upper Right Pleural/ Mediastinal Urine 500 Stool 2 Estimated Blood Loss 5 Other: Voiding Method Bedside Commode Bedside Commode Bedpan Bedpan Diaper Diaper # Voids 1 2 - Labs CBC & Chem 7: 03/20/21 07:10 03/20/21 07:10 Labs: Abnormal Lab Results - Last 24 Hours (Table) 03/20/21 03/20/21 Range/Units 07:10 07:10 RBC 2.50 L (3.80-5.40) m/uL Hgb 9.6 L (11.4-16.0) gm/dL Hct 29.7 L (34.0-46.0) % MCV 118.6 H (80.0-100.0) fL MCH 38.2 H (25.0-35.0) pg RDW 16.4 H (11.5-15.5) % Nucleated RBCs 2 H (0-0) /100 WBC Macrocytosis Marked A Sodium 135 L (137-145) mmol/L BUN 20 H (7-17) mg/dL Glucose 116 H (74-99) mg/dL Magnesium 1.3 L (1.6-2.3) mg/dL Total Protein 5.6 L (6.3-8.2) g/dL Albumin 2.7 L (3.5-5.0) g/dL Microbiology - Last 24 Hours (Table) 03/15/21 10:15 Blood Culture - Preliminary Blood No Growth after 120 hours 03/15/21 10:30 Blood Culture - Preliminary Blood No Growth after 120 hours
[2021-03-20] MEDS: HYDROXYUREA 500 MG CAP PO SCH (19:50)
[2021-03-20] MEDS: ALPRAZolam 0.5 MG TAB PO SCH (19:50)
[2021-03-20] MEDS: GABAPENTIN 100 MG CAP PO SCH (19:50)
[2021-03-20] MEDS: MAGNESIUM OXIDE 400 MG TAB PO SCH (19:50)
[2021-03-20] MEDS: METOPROLOL SUCCINATE (ER) 50 MG TAB.ER.24H PO SCH (19:51)
[2021-03-20] MEDS: HYDROcodone/APAP 7.5-325MG 1 EACH TAB PO PRN (19:51)
[2021-03-21] MEDS: PANTOPRAZOLE 40 MG TABLET PO SCH ×2 (06:23→20:55)
[2021-03-21] MEDS: LEVOTHYROXINE 50 MCG TAB PO SCH (06:24)
--- NOTE | 2021-03-21 08:00 | XR ---
EXAMINATION TYPE: XR chest 1V portable DATE OF EXAM: 03/21/2021 COMPARISON: 03/20/2021 HISTORY: Shortness of breath TECHNIQUE: Single frontal view of the chest is obtained. FINDINGS: No change in the loculated right-sided pneumothorax and right lower lobe infiltrate. There is diffuse interstitial opacity in the left lung which is stable and there is no left-sided pne umothorax or pleural effusion. Heart size is normal. There is dislocation of the right shoulder prosthesis and a chronic rotator cuff tear of the left richard ulder. There is mild subcutaneous emphysema in the soft tissues of the right hemithorax which was not seen previously. IMPRESSION: 1. No change in the loculated right pneumothorax and right lung infiltrate. 2. No change in the interstitial opacity in the left lung interval 3. development of mild subcutaneous emphysema in the right lateral chest wall
[2021-03-21] MEDS: ASPIRIN 325 MG TAB PO SCH (08:29)
[2021-03-21] MEDS: LORATADINE 10 MG TAB PO SCH (08:29)
[2021-03-21] MEDS: ESCITALOPRAM 10 MG TAB PO SCH (08:29)
[2021-03-21] MEDS: MAGNESIUM OXIDE 400 MG TAB PO SCH ×2 (08:29→20:55)
[2021-03-21] MEDS: MULTIVITAMINS, THERA 1 EACH TAB PO SCH (08:29)
[2021-03-21] MEDS: METOPROLOL SUCCINATE (ER) 25 MG TAB.ER.24H PO SCH (08:30)
[2021-03-21] MEDS: SENNOSIDES-DOCUSATE SODIUM 1 EACH TAB PO SCH ×2 (08:30→20:56)
--- NOTE | 2021-03-21 09:06 | P.PN ---
Subjective Progress Note Date: 03/21/21 Principal diagnosis: Recurrent malignant right-sided pleural effusion, left-sided pulmonary emboli, bilateral lower extremity DVTs, acute on chronic hypoxic respiratory failure. P ast medical history significant for recent diagnosis of pulmonary adenocarcinoma diagnosed from pleural fluid of last thoracentesis 03/01/21, COPD, home oxygen at 2 L nasal cannula, chronic tobacco dependence with recent smoking cessation, hypertension, hypothyroid, thrombocytosis, currently on Hydrea, follows outpatient with Dr. Mitchell. POD #3 fluoroscopic assisted placement of inferior vena cava filter performed by Dr. Bennett. POD #2 right Pleurx catheter placement with fluoroscopy. The patient was seen in follow-up today 03/21/2021 at her bedside on the cardiac stepdown unit. Currently she is sitting up to the bedside chair, is awake, alert and oriented 3 and is in no acute apparent distress. She denies any complaints of pain at this time and states that she does get a little bit of shortness of breath with activity. Her right sided Pleurx catheter was drained for 300 mL of thin serosanguineous drainage this morning and the patient tolerated the procedure without incident. She is currently on 5 L nasal cannula with oxygen saturations 93%. She is achieving 750-1000 mL on her incentive spirometry with encouragement and has been afebrile the last 24 hours. Pleurx catheter teaching was reinforced with the patient. Objective - Vital Signs Vital signs: Vital Signs Temp 98.2 F 03/21/21 04:00 Pulse 90 03/21/21 04:00 Resp 20 03/21/21 04:00 BP 135/74 03/21/21 04:00 Pulse Ox 93 L 03/21/21 04:00 Intake & Output 03/20/21 03/21/21 03/21/21 18:59 06:59 18:59 Intake Total 120 240 Output Total 501 Balance -381 240 Weight 80.5 kg Intake: Oral 120 240 Output: Chest Tube Drainage 500 Pleural Catheter Right 500 Upper Right Pleural/ Mediastinal Stool 1 Other: Voiding Method Bedside Commode Bedside Commode Bedpan Bedpan Diaper Diaper # Voids 2 1 - Exam CONSTITUTIONAL: Appears comfortable, cooperative, no acute distress. RESPIRATORY: Lungs sounds diminished bilaterally, right greater than left. Respirations are symmetrical and nonlabored at rest. Currently on 5 L nasal cannula with oxygen saturation 93%. Able to achieve 750-1000 mL on her incen tive spirometry. Strong cough. Right chest Pleurx catheter remains in place with dressing clean, dry and intact. CARDIOVASCULAR: S1, S2 present. Regular rate and rhythm, sinus rhythm on telemetry. Palpable peripheral pulses bilaterally. No edema present. GASTROINTESTINAL: Abdomen soft, nontender, nondistended. Active bowel sounds present 4 quadrants. Tolerating diet. GENITOURINARY: Continues to void INTEGUMENTARY: Skin is warm and dry with evidence of good perfusion. NEUROLOGIC: Cranial nerves II through XII intact MUSKULOSKELETAL: Able to move all extremities, strength equal bilaterally PSYCHIATRIC: Alert and oriented to person place and time, appropriate affect, intact judgment and insight - Allied health notes Allied health notes reviewed: nursing - Labs CBC & Chem 7: 03/20/21 07:10 03/20/21 07:10 Labs: Abnormal Lab Results - Last 24 Hours (Table) 03/20/21 Range/Units 07:10 Nucleated RBCs 2 H (0-0) /100 WBC Microbiology - Last 24 Hours (Table) 03/15/21 10:15 Blood Culture - Preliminary Blood No Growth after 120 hours 03/15/21 10:30 Blood Culture - Preliminary Blood No Growth after 120 hours - Imaging and Cardiology Chest x-ray: report reviewed, image reviewed Assessment and Plan Assessment: 1. Recurrent malignant right-sided pleural effusion, last thoracentesis 03/01/2021 with removal of 750 mL fluid cytology positive for pulmonary adenocarcinoma, status post placement of right sided Pleurx catheter under fluoroscopy 2. Left-sided pulmonary emboli, bilateral lower extremity DVTs, status post placement of IVC filter by Dr. Bennett 3. Acute on chronic hypoxic respiratory failure 4. COPD, on home oxygen at 2 L nasal cannula 5. Chronic tobacco dependence with recent smoking cessation 6. History of hypertension 7. Hypothyroid 8. History of thrombocytosis, currently on Hydrea, follows outpatient with Dr. Mitchell Plan: 1. We will continue to drain her right sided Pleurx catheter daily until she is discharged to the extended care facility. Once she is discharged, at the extended care facility they can drain the Pleurx catheter 3 times per week and as needed per the patient's symptoms. Discharge instructions for her Pleurx catheter have been placed in the discharge plan. 2. Medical management of other comorbidities per primary care, oncology 3. Encourage incentive spirometry use 10 times every hour while awake. Wean O2 as tolerated 4. Encourage continued smoking cessation 5. More recommendations to follow based on patient's clinical course. Time with Patient: Greater than 30
[2021-03-21] MEDS: IPRATROPIUM-ALBUTEROL 3 ML NEB INHALATION SCH ×4 (09:38→19:52)
--- NOTE | 2021-03-21 13:37 | P.PN ---
Subjective Progress Note Date: 03/21/21 Principal diagnosis: Shortness of breath. This is a 81-year-old female patient of Dr. Yarbrough with past history of 60+ year smoking history which is currently in remission, COPD, on home oxygen since her most recent admission in February 2021, newly diagnosed lung cancer. Antwan gonzalez was recently hospitalized in February 2021 and we saw the patient in consultation, and patient had a large right-sided pleural effusion which was loculated. Prior to the patient was treated for pneumonia that was not improving with several rounds of antibiotics. Interventional radiology was consulted and did a right-sided thoracentesis and removed 750 mL of dark colored fluid, which was sent for cytology and analysis. Pleural fluid analysis showed exudative fluid and cytology was positive for pulmonary adenocarcinoma. Pleural fluid cultures showed no organisms. Patient qualified for home oxygen, she was sent home on 2 L, she was medically optimized and discharged home on 03/01/2021 with instructions to follow-up with Dr. Cutler in the office on 03/12/2021, she was supposed to see Dr. Gonzáles from medical oncology. Patient was seen in the office on 03/12/[address] Cutler, and informed that she has stage IV pulmonary adenocarcinoma. She was having some ongoing shortness of breath and the chest x-ray was showing recurrence of the right-sided pleural effusion with some right basilar atelectasis and loculated right-sided pleural effusion. Patient was supposed to see Dr. Alex mason on an outpatient basis for insertion of a Pleurx catheter. She was supposed to be scheduled for an outpatient PET scan as well. On 03/15/2021 patient presented to the emergency department with worsening shortness of breath, and patient was having a difficult time ambulating. She lives by herself in an apartment. Chest x-ray showed right pleural effusion and associated atelectasis. CTA chest was completed related to elevated d-dimer of 29.45, and it showed multiple left lung pulmonary emboli and possible early airspace disease. Venous Dopplers showed nonocclusive DVT in bilateral popliteal and proximal calf veins. Patient denies any chest pain, no hemoptysis, no fever or chills, no lightheadedness, no cough or phlegm production. No swelling in lower extremities, no calf tenderness. She was started on heparin infusion. And this consult was initiated Progress note dated 03/17/2021. This is a 81-year-old female with a history of respiratory failure secondary to recurrent right-sided malignant effusion, and acute pulmonary emboli. The patient had acute pulmonary emboli in the left lung. She's newly diagnosed pulmonary adenocarcinoma, stage IV. The diagnosis is made by thoracentesis, and fluid analysis, on March 01. She has not started chemotherapy as yet. She has an extensive smoking history, hypertension, hyperlipidemia, and COPD. Currently, the patient is on 3 L nasal cannula. She's receiving IV heparin. She complains of mild shortness of breath on exertion, and pain in the left chest. Current laboratory data includes a white count 12.4, hemoglobin 10.7, hematocrit 33.7, and a platelet count 259,000. PTT is 52.8. Sodium 138, potassium 4.3, chlorides 105, CO2 23, anion gap 10, BUN 35, creatinine 1.04. Progress note dated 03/18/2021. 81-year-old female, again seen in room 382. She's currently on 4 L nasal cannula. The patient came in with a recurrent right-sided malignant effusion. She apparently is going to have a Pleurx catheter placed tomorrow by cardiothoracic surgery. She had an IVC filter placed by Dr. Bennett on March 17. White count 11, hemoglobin 10.2, hematocrit 31.7, and platelet count 259,000. The patient is not complaining of any shortness of breath, chest pain, cough, wheezing, or phlegm production. She does have some mild shortness of breath on exertion. She has not started chemotherapy as yet. She has a history of extensive tobacco use, hypertension, hyperlipidemia, and COPD. Progress note dated 03/20/2021. 81-year-old female, again seen in room 382. The patient's currently still on O2, and 5 L. No IV fluids. A couple days ago, one of the vascular surgeon place an IVC filter. It was done on March 17. Also, Dr. Ruth place a Pleurx catheter in this patient. It was done on the right side. The patient looks to be doing reasonably well. She is hoping to be discharged in the next 24-48 hours. In addition to lung cancer, she has a history of hypertension, hyperlipidemia, and COPD. The Pleurx catheter was placed on March 19. White count 9.7, hemoglobin 9.6, hematocrit 29.7, and platelet count 285,000. Sodium 135, potassium 4.2, chlorides 102, CO2 26, anion gap 7, BUN 20, with a creatinine of 0.64. Chest chest x-ray shows diffuse infiltrate in the left lung. There is a right-sided loculated hydropneumothorax. Progress note dated 03/21/2021. 81-year-old female again seen in room 382. Currently, she's not receiving any IV fluids. She is on 5 L nasal cannula. Her chest x-ray that was done today, was unchanged, still shows a hydropneumothorax on the right. Her magnesium level was 1.6. Clinically, she states that she's feeling better. She recently had a Pleurx catheter placed by Dr. Ruth, and a IVC filter placed by Dr. Bennett. Objective - Vital Signs Vital signs: Vital Signs Temp 98.2 F 03/21/21 04:00 Pulse 94 03/21/21 12:59 Resp 20 03/21/21 04:00 BP 135/74 03/21/21 04:00 Pulse Ox 92 L 03/21/21 12:48 Intake & Output 03/20/21 03/21/21 03/21/21 18:59 06:59 18:59 Intake Total 120 240 120 Output Total 501 Balance -381 240 120 Weight 80.5 kg Intake: Oral 120 240 120 Output: Chest Tube Drainage 500 Pleural Catheter Right 500 Upper Right Pleural/ Mediastinal Stool 1 Other: Voiding Method Bedside Commode Bedside Commode Bedpan Bedpan Diaper Diaper # Voids 2 1 1 # Bowel Movements 1 - Exam No acute distress, oriented 3. Currently on 5 L nasal cannula. Saturations are 92%. HEENT examination is grossly unremarkable. Neck supple. Full range of motion. No adenopathy thyromegaly or neck vein distention. Cardiovascular examination reveals regular rhythm rate. S1-S2 normal. No S3 or S4. No discernible murmur noted. Heart rate 94 bpm. Lungs reveal breath sounds at the right base. Scattered rhonchi are noted on the right. No wheezes or crackles. Breath sounds on the left are clear. Abdomen soft bowel sounds are heard. No masses or tenderness. Extremities are intact. No cyanosis clubbing or edema. Skin is without rash or lesion. Neurologic examination is brief but nonfocal. - Labs CBC & Chem 7: 03/20/21 07:10 03/20/21 07:10 Labs: Microbiology - Last 24 Hours (Table) 03/15/21 10:15 Blood Culture - Final Blood No Growth after 144 hours 03/15/21 10:30 Blood Culture - Final Blood No Growth after 144 hours Assessment and Plan Assessment: #1. Acute hypoxic respiratory failure related to recurrent right-sided malignant pleural effusion and acute pulmonary emboli, S/P Pleurx catheter placement on 03/19/2021. #2. Acute pulmonary emboli in the left lung, and acute nonocclusive bilateral popliteal DVTs and proximal calf veins, status post IVC filter placed by vascular surgery, on 03/17/2021. #3. Newly diagnosed pulmonary adenocarcinoma stage IV, the diagnosis was made from the cytology of the right-sided pleural fluid on 03/01/2021, that showed pulmonary adenocarcinoma. Patient was referred to medical oncology, and was supposed to see Dr. Gonzáles in consultation and complete an outpatient PET scan. #4. Extensive history of smoking, 60+ years, in remission for the past 4 weeks. #5. Hypertension. #6. Hyperlipidemia. #7. COPD, has been placed on oxygen recently after last hospitalization. #8. Hypothyroidism. #9. Chronic back pain with peripheral neuropathy. #10. Depression. Plan: Plan dated 03/17/2021. Cardiothoracic surgery was consulted for possible Pleurx catheter placement, in the right pleural space, for the malignant right-sided effusion. The patient continues on heparin. She is on 3 L nasal cannula. She does not appear to have much in the way of respiratory distress. Medical oncology was asked to see the patient as well. They've not started any treatment as yet on this patient. Prognosis is very guarded. The patient is a DO NOT RESUSCITATE patient. We will continue to follow and make recommendations where appropriate. Plan dated 03/18/2021. The patient will be seen by cardiothoracic surgery tomorrow for placement of a right-sided Pleurx catheter. Yesterday, she had a IVC filter placed by Dr. Bennett and vascular surgery. She has been seen by medical oncology. Her prognosis is poor. She is a DO NOT RESUSCITATE patient. We will continue to follow make recommendations where appropriate. Currently, she remains on 4 L nasal cannula. She's not receiving any IV fluids. Her lab data was reviewed. Plan dated 03/20/2021. The Pleurx was placed by Dr. Ruth on March 19. The IVC filter was placed by Dr. Bennett. The patient has been seen by medical oncology. The patient is a DO NOT RESUSCITATE patient. Currently, she is on 5 L nasal cannula. We will continue to follow make recommendations where appropriate. Labs, x-rays, medications are reviewed. Overall prognosis, obviously is not good. We will continue to follow. Plan dated 03/21/2021. The patient currently remains on 5 L nasal cannula. The patient is not receiving any IV fluids. Magnesium level is 1.6. IVC filter was placed by Dr. Bennett. Pleurx catheter was placed by Dr. Ruth on March 09. Additional recommendations and suggestions are forthcoming. She will follow with medical oncology post discharge. Labs, x-rays, and medications are all reviewed. Prognosis remains very guarded. Time with Patient: Less than 30
--- NOTE | 2021-03-21 16:07 | P.PN ---
Subjective Progress Note Date: 03/21/21 History of present illness: 81-year-old female patient of Dr. Yarbrough with past medical history of thrombocytosis followed Dr. Mitchell the past, history of hyperlipidemia hypertension, chronic back pain, GERD, was hospitalized recentlyfor worsening dyspnea shortness of breath found to have large pleural effusion patient subsequently was diagnosed with adenocarcinoma of the lung. Patient has been seen oncology since then. She presented to the emergency department today at [facility] with worsening dyspnea and shortness of breath for the last 3-4 days with worsening wheezes her symptom has been very severe with minimum exertion been severely symptomatic today patient called 911 and ended up coming to [facility] department by EMS was seen and evaluated with her testing including d-dimer was very high patient ended up going for CTA showed multi embolism of the lung. Patient also still showing lung mass. Pleural effusion on the right side as well. Was started on heparin drip consult pulmonary patient seen regularly and admit patient to the hospital for the above problem. From her last admission last time patient had severe shortness of breath was evaluated for pulmonary embolism which was negative but found to have large sided pleural effusion on the right side with negative Doppler the time as well. Patient had thoracentesis of the time came back apparently with malignant pleural effusion. Since then patient was diagnosed with adenocarcinoma. Also patient is known to have history of chronic leukocytosis and thrombocytosis has been seen oncology been treated with hydroxyurea. 03/16: Patient is on 3 L nasal cannula with pulse ox of 97% she is been afebrile, heart rate in the 60s and 70s, blood pressure 127/61. Patient states her breathing status is stable as long as she is sitting. She is complaining of back pain for which Tylenol and Robins will be added. She is requesting to be a DO NOT RESUSCITATE. Ultrasound of the bilateral lower extremity is positive for DVT bilaterally of the popliteal proximal calf veins. Consults in place for pulmonary medicine and oncology consult added. Patient is currently on heparin drip. 03/17: Patient remains afebrile, heart rate 70, blood pressure 119/58, pulse ox 97% on 3 L nasal cannula. Repeat blood work reveals WBC 12.4, hemoglobin 10.7, platelet count 259. Electrolytes normal, BUN 35 creatinine 1. Blood sugar 119. Patient is found to have a large hematoma on the left hip area. Sisters been asked to contact oncology with recommendations for anticoagulation at this poi nt. She is currently on heparin drip. Bone scan revealed vertebral compression fractures in the thoracic spine may be due to osteoporotic change. No associated soft tissue mass on the CT. MRI may be of benefit. Correlate for osteoporotic compression fracture having developed after prior CAT scan done on 02/24/2021. CAT scan of the abdomen and pelvis revealed no suspicious mass or adenopathy to suggest metastatic disease. There is a 6.7 cm upper lateral left thigh heterogeneous fluid collection or intramuscular hematoma. CAT scan of the brain revealed no suspicious enhancing masses to suggest metastatic disease to the brain. Repeat chest x-ray reveals no significant interval change. Right pleural effusion and associated atelectasis, correlate for possible pneumonia. Patient is seen and followed by oncology as well as consult in place with cardiothoracic surgery planning for Pleurx catheter for recurrent right-sided pleural effusion. 03/18: Patient underwent IVC filter yesterday with Dr. Bennett. Oncology is planning for oral anticoagulation in the next few weeks/months if the patient does not exhibit any signs or symptoms of bleeding or unusual bruising with anticoagulations, she can referred back to vascular for removal of the filter. Pleurx catheter scheduled for Monday with cardiothoracic team. Hemoglobin has been stable at 10.2. WBC 11. Blood culture no growth at 48 hours. Patient has been afebrile, heart rate 96, blood pressure 161/63, pulse ox 91% on 4 L nasal cannula. Concerns from the patient. 03/19: Patient underwent right sided Pleurx catheter placement with Dr. Ruth. Patient complains of pain at the site but no new complaints otherwise. Pneumothorax on the right measuring approximately 30%. She has been afebrile, heart rate 96, blood pressure 147/74, pulse ox 91% on 4 L nasal cannula. playground monitor is sinus rhythm. Repeat blood work will be ordered for tomorrow. Blood cultures no growth at 72 hours. Discharge plan is on Monday. 03/20 Patient had Pleurx catheter -related hydrothorax, patient is comfortable, no nausea no vomiting, still with decreased appetite, O2 at 5 L nasal cannula, and has multiple comorbidities, no current IV medications infusing, we'll going to hold off any midline iciness is might need this for future infusions, changed to oral admission supplementation, 400 oxide admission, twice a day for 14 s hakes, for supplementation. Anticipate discharge, 03/21: Patient is sitting up in a geriatric chair, Pleurx catheter draining today at 300 mL, yesterday they took out 500 mL, she feels comfortable otherwise, still on O2 at 4-5 L nasal cannula, no chest pain no shortness of breath, patient is anticipated for [facility] discharge in the next 24 hours, per their policy, they want to have a repeat covid prior to admission to [facility] ROS: Constitutional: Denies chills, Denies fever, Denies lethargy, Denies malaise, reports poor appetite, Denies weakness, Denies weight loss Eyes: denies decreased vision, denies diplopia, denies discharge, denies pain Ears: deny: decreased hearing Ears, nose, mouth and throat: Denies dental pain, Denies headache, Denies nasal discharge, Denies nose pain Cardiovascular: Denies chest pain, Denies decreased exercise tolerance, Denies edema, Denies high blood pressure, Denies irregular heart beat, Denies palpitations, Denies paroxysmal nocturnal dyspnea, Denies rapid heart beat, Denies shortness of breath Respiratory: Denies congestion, Denies cough, endorses cough with sputum, endorses dyspnea, Denies home oxygen, Denies wheezing Gastrointestinal: Denies abdominal pain, Denies change in bowel habits, Denies coffee ground emesis, Denies early satiety, Denies excessive gas, Denies heartburn, Denies hematemesis, Denies hematochezia, Denies loss of appetite, Denies nausea, Denies vomiting Genitourinary: Denies dysuria, Denies flank pain, Denies kidney stones, Denies menorrhagia, Denies urgency, Denies urinary frequency Musculoskeletal: Endorses gait dysfunction, endorses limitation of motion, Denies morning stiffness, Denies muscle cramps endorses back pain, uses the walker at baseline, reports hematoma left thigh Integumentary: Denies rash, Denies wounds, Denies brittle nails, Denies change in hair/nails, Denies darkening of skin Neurological: Denies balance difficulties, Denies change in speech, Denies juanpablo ble vision, Denies gait dysfunction, Denies loss of vision, Denies motor disturbance, Denies numbness, Denies paralysis, Denies paresthesias, Denies seizures Psychiatric: Denies anxiety, Denies depression Endocrine: Denies excessive sweating, Denies excessive thirst, Denies high blood sugars, Denies palpitations Hematologic/Lymphatic: Denies easy bruising, Denies lymphadenopathy Physical exam: - Constitutional General appearance: cooperative, no acute distress, obese, resting in recliner and appears to be comfortable - EENT Eyes: anicteric sclerae, PERRLA, normal appearance ENT: hearing grossly normal - Neck Neck: no lymphadenopathy, normal ROM, no other, no rigidity, no stridor, no thyromegaly - Respiratory Respiratory: bilateral: Decreased air entry on the right, dull on percussion on the right, no crackles no wheezing, sided Pleurx catheter in place. - Cardiovascular Rhythm: regular Heart sounds: normal: S1, S2 Abnormal Heart Sounds: no systolic murmur, no diastolic murmur, no rub, no S3 Gallop, no S4 Gallop, no click, no other - Gastrointestinal General gastrointestinal: normal bowel sounds, soft - Integumentary Integumentary: no rash, large hematoma on the left lateral hip - Neurologic Neurologic: CNII-XII intact - Musculoskeletal Musculoskeletal: gait normal, strength equal bilaterally - Psychiatric Psychiatric: A&O x's 3, appropriate affect Assessment and plan: 1 acute respiratory failure: Combination of acute multi-pulmonary embolism with bilateral lower extremity DVT, COPD exacerbation, lung cancer and recurrent metastatic right-sided pleural effusion. Patient is off heparin drip, continue DuoNeb treatments 4 times daily, post Pleurx catheter right side 03/19. 2 acute multi-pulmonary embolism and bilateral lower extremity DVT. Patient is status post IVC filter performed by Dr. Bennett on 03/17. Oncology is following, plan for eliquis eventually. 3 adenocarcinoma of the lung: Newly diagnosed patient, oncology is developing plan for chemotherapy/immunotherapy, workup in progress.. 4 recurrent large sided pleural effusion on the right side. Cardiothoracic surgery for Pleurx catheter. 5. Acute left hip hematoma status post IVC filter. No anticoagulation at this time 6. chronic obstructive pulmonary disease. Continue O2 continue updraft treatment with DuoNeb. 7. hypertension: Patient remain on metoprolol 25 mg daily and 50 mg at bedtime. 8 thrombocytosis: Patient has been on hydroxyurea seen oncology. 9 hypothyroidism: Continue patient on levothyroxine 50 g daily. 10 chronic history of peripheral neuropathy. Continue gabapentin and her milligrams at bedtime. 11 severe GERD. Protonix 40 mg daily. 12 DVT prophylaxis: Patient will be on anticoagulation. 13 recurrent depression: Has been on citalopram 10 mg daily. CODE STATUS: Full code. prognosis guarded Protein calorie nutrition, with malignancy related anorexia to the mentation, might need Marinol, Discharge Plan Subacute rehab at [facility] on Monday Current Medications Acetaminophen (Acetaminophen Tab 325 Mg Tab) 650 mg PO Q6HR PRN PRN Reason: Fever and/ or Mild Pain Last Admin: 03/16/21 21:17 Dose: 650 mg Documented by: Hydrocodone Bitart/Acetaminophen (Hydrocodone/Apap 7.5-325mg 1 Each Tab) 1 each PO Q4HR PRN PRN Reason: Pain Last Admin: 03/20/21 19:51 Dose: 1 each Documented by: Albuterol/Ipratropium (Ipratropium-Albuterol 3 Ml Neb) 3 ml INHALATION RT-QID [facility] Last Admin: 03/21/21 12:48 Dose: 3 ml Documented by: Alprazolam (Alprazolam 0.5 Mg Tab) 0.5 mg PO [facility] Last Admin: 03/20/21 19:50 Dose: 0.5 mg Documented by: Aspirin (Aspirin 325 Mg Tab) 325 mg PO DAILY [facility] Last Admin: 03/21/21 08:29 Dose: 325 mg Documented by: Ergocalciferol (Ergocalciferol 1,250 Mcg (50,000 Iu) Capsule) 1,250 mcg PO TU [facility] Last Admin: 03/16/21 07:51 Dose: 1,250 mcg Documented by: Escitalopram Oxalate (Escitalopram 10 Mg Tab) 10 mg PO DAILY [facility] Last Admin: 03/21/21 08:29 Dose: 10 mg Documented by: Estradiol (Estradiol 0.5 Mg Tab) 1 mg PO DAILY [facility] Last Admin: 03/21/21 08:29 Dose: 1 mg Documented by: Gabapentin (Gabapentin 100 Mg Cap) 100 mg PO [facility] Last Admin: 03/20/21 19:50 Dose: 100 mg Documented by: Hydroxyurea (Hydroxyurea 500 Mg Cap) 500 mg PO [facility] Last Admin: 03/20/21 19:50 Dose: 500 mg Documented by: Hydroxyurea (Hydroxyurea 500 Mg Cap) 500 mg PO SUMOTU [facility] Last Admin: 03/16/21 21:19 Dose: 500 mg Documented by: Levothyroxine Sodium (Levothyroxine 50 Mcg Tab) 50 mcg PO DAILY@0630 [facility] Last Admin: 03/21/21 06:24 Dose: 50 mcg Documented by: Loratadine (Loratadine 10 Mg Tab) 10 mg PO DAILY [facility] Last Admin: 03/21/21 08:29 Dose: 10 mg Documented by: Magnesium Oxide (Magnesium Oxide 400 Mg Tab) 400 mg PO BID [facility] Last Admin: 03/21/21 08:29 Dose: 400 mg Documented by: Metoprolol Succinate (Metoprolol Succinate (Er) 25 Mg Tab.Er.24h) 25 mg PO DAILY [facility] Last Admin: 03/21/21 08:30 Dose: 25 mg Documented by: Metoprolol Succinate (Metoprolol Succinate (Er) 50 Mg Tab.Er.24h) 50 mg PO [facility] Last Admin: 03/20/21 19:51 Dose: 50 mg Documented by: Miscellaneous Information (Magnesium Replacement Protocol 1 Each Misc) 1 each MISCELLANE DAILY PRN; Protocol PRN Reason: Per Protocol Multivitamins (Multivitamins, Thera 1 Each Tab) 1 each PO DAILY [facility] Last Admin: 03/21/21 08:29 Dose: 1 each Documented by: Vitamin B Complex 1 cap PO DAILY [facility] Last Admin: 03/20/21 09:11 Dose: 1 cap Documented by: Pantoprazole Sodium (Pantoprazole 40 Mg Tablet) 40 mg PO [facility] Last Admin: 03/20/21 19:51 Dose: 40 mg Documented by: Pantoprazole Sodium (Pantoprazole 40 Mg Tablet) 40 mg PO AC-BRKFST [facility] Last Admin: 03/21/21 06:23 Dose: 40 mg Documented by: Senna/Docusate Sodium (Sennosides-Docusate Sodium 1 Each Tab) 2 each PO BID [facility] Last Admin: 03/21/21 08:30 Dose: Not Given Documented by: Vital Signs Temp 98.0 F 03/21/21 12:00 Pulse 87 03/21/21 14:00 Resp 19 03/21/21 14:00 BP 110/72 03/21/21 12:00 Pulse Ox 92 L 03/21/21 12:48 Intake & Output 03/20/21 03/21/21 03/21/21 18:59 06:59 18:59 Intake Total 120 240 240 Output Total 501 2 Balance -381 240 238 Weight 80.5 kg Intake: Oral 120 240 240 Output: Chest Tube Drainage 500 Pleural Catheter Right 500 Upper Right Pleural/ Mediastinal Stool 1 2 Other: Voiding Method Bedside Commode Bedside Commode Bedside Commode Bedpan Bedpan Bedpan Diaper Diaper Diaper # Voids 2 1 1 # Bowel Movements 1 Laboratory Results - Last 24 Hours 03/21/21 07:12 Magnesium 1.6 Objective - Vital Signs Vital signs: Vital Signs Temp 98.0 F 03/21/21 12:00 Pulse 94 03/21/21 12:59 Resp 19 03/21/21 12:00 BP 110/72 03/21/21 12:00 Pulse Ox 92 L 03/21/21 12:48 Intake & Output 03/20/21 03/21/21 03/21/21 18:59 06:59 18:59 Intake Total 120 240 240 Output Total 501 Balance -381 240 240 Weight 80.5 kg Intake: Oral 120 240 240 Output: Chest Tube Drainage 500 Pleural Catheter Right 500 Upper Right Pleural/ Mediastinal Stool 1 Other: Voiding Method Bedside Commode Bedside Commode Bedpan Bedpan Diaper Diaper # Voids 2 1 1 # Bowel Movements 1 - Labs CBC & Chem 7: 03/20/21 07:10 03/20/21 07:10 Labs: Microbiology - Last 24 Hours (Table) 03/15/21 10:15 Blood Culture - Final Blood No Growth after 144 hours 03/15/21 10:30 Blood Culture - Final Blood No Growth after 144 hours
[2021-03-21] MEDS ORDERED: guaiFENesin 600 MG TABLET.ER PO PRN (17:29)
[2021-03-21] MEDS: METOPROLOL SUCCINATE (ER) 50 MG TAB.ER.24H PO SCH (20:55)
[2021-03-21] MEDS: GABAPENTIN 100 MG CAP PO SCH (20:55)
[2021-03-21] MEDS: ALPRAZolam 0.5 MG TAB PO SCH (20:55)
[2021-03-21] MEDS: HYDROXYUREA 500 MG CAP PO SCH ×2 (20:56)
[2021-03-22] MEDS: LEVOTHYROXINE 50 MCG TAB PO SCH (06:07)
[2021-03-22] MEDS: PANTOPRAZOLE 40 MG TABLET PO SCH (06:07)
[2021-03-22] MEDS: IPRATROPIUM-ALBUTEROL 3 ML NEB INHALATION SCH ×2 (07:55→11:17)
[2021-03-22] MEDS: LORATADINE 10 MG TAB PO SCH (08:43)
[2021-03-22] MEDS: SENNOSIDES-DOCUSATE SODIUM 1 EACH TAB PO SCH (08:44)
[2021-03-22] MEDS: ASPIRIN 325 MG TAB PO SCH (08:44)
[2021-03-22] MEDS: MULTIVITAMINS, THERA 1 EACH TAB PO SCH (08:44)
[2021-03-22] MEDS: METOPROLOL SUCCINATE (ER) 25 MG TAB.ER.24H PO SCH (08:44)
[2021-03-22] MEDS: MAGNESIUM OXIDE 400 MG TAB PO SCH (08:44)
[2021-03-22] MEDS: ACETAMINOPHEN TAB 325 MG TAB PO PRN (08:44)
[2021-03-22] MEDS: ESCITALOPRAM 10 MG TAB PO SCH (08:50)
--- NOTE | 2021-03-22 09:29 | P.PN ---
Subjective Progress Note Date: 03/22/21 Principal diagnosis: Recurrent malignant right-sided pleural effusion, left-sided pulmonary emboli, bilateral lower extremity DVTs, acute on chronic hypoxic respiratory failure. P ast medical history significant for recent diagnosis of pulmonary adenocarcinoma diagnosed from pleural fluid of last thoracentesis 03/01/21, COPD, home oxygen at 2 L nasal cannula, chronic tobacco dependence with recent smoking cessation, hypertension, hypothyroid, thrombocytosis, currently on Hydrea, follows outpatient with Dr. Mitchell. POD #4 fluoroscopic assisted placement of inferior vena cava filter performed by Dr. Bennett. POD #3 right Pleurx catheter placement with fluoroscopy. The patient was seen in follow-up today 03/22/2021 at her bedside on the cardiac stepdown unit. Currently she is laying in bed with her head elevated, is awake, alert and oriented 3 and is in no acute apparent distress. She denies any complaints of pain or shortness of breath at this time. Her right sided Pleurx catheter was drained for 200 mL of thin serosanguineous drainage this morning and the patient tolerated the procedure without incident. She is currently on 5 L nasal cannula with oxygen saturations 96%. She is achieving 750-1000 mL on her incentive spirometry with encouragement and has been afebrile the last 24 hours. Pleurx catheter teaching again, was reinforced with the patient. Objective - Vital Signs Vital signs: Vital Signs Temp 97.8 F 03/22/21 08:29 Pulse 97 03/22/21 08:29 Resp 20 03/22/21 08:29 BP 93/50 03/22/21 08:29 Pulse Ox 91 L 03/22/21 08:29 Intake & Output 03/21/21 03/22/21 03/22/21 18:59 06:59 18:59 Intake Total 360 240 180 Output Total 2 Balance 358 240 180 Weight 81.5 kg Intake: Oral 360 240 180 Output: Stool 2 Other: Voiding Method Bedside Commode Bedside Commode Bedpan Bedpan Diaper Diaper # Voids 1 1 # Bowel Movements 1 2 - Exam CONSTITUTIONAL: Appears comfortable, cooperative, no acute distress. RESPIRATORY: Lungs sounds diminished bilaterally, right greater than left. Respirations are symmetrical and nonlabored at rest. Currently on 5 L nasal can nula with oxygen saturation 96%. Able to achieve 750-1000 mL on her incentive spirometry. Strong cough. Right chest Pleurx catheter remains in place with dressing clean, dry and intact. CARDIOVASCULAR: S1, S2 present. Regular rate and rhythm, sinus rhythm on telemetry. Palpable peripheral pulses bilaterally. No edema present. GASTROINTESTINAL: Abdomen soft, nontender, nondistended. Active bowel sounds present 4 quadrants. Tolerating diet. GENITOURINARY: Continues to void INTEGUMENTARY: Skin is warm and dry with evidence of good perfusion. NEUROLOGIC: Cranial nerves II through XII intact MUSKULOSKELETAL: Able to move all extremities, strength equal bilaterally PSYCHIATRIC: Alert and oriented to person place and time, appropriate affect, intact judgment and insight - Allied health notes Allied health notes reviewed: nursing - Labs CBC & Chem 7: 03/20/21 07:10 03/20/21 07:10 Labs: Microbiology - Last 24 Hours (Table) 03/15/21 10:15 Blood Culture - Final Blood No Growth after 144 hours 03/15/21 10:30 Blood Culture - Final Blood No Growth after 144 hours Assessment and Plan Assessment: 1. Recurrent malignant right-sided pleural effusion, last thoracentesis 03/01/2021 with removal of 750 mL fluid cytology positive for pulmonary adenocarcinoma, status post placement of right sided Pleurx catheter under fluoroscopy 2. Left-sided pulmonary emboli, bilateral lower extremity DVTs, status post placement of IVC filter by Dr. Bennett 3. Acute on chronic hypoxic respiratory failure 4. COPD, on home oxygen at 2 L nasal cannula 5. Chronic tobacco dependence with recent smoking cessation 6. History of hypertension 7. Hypothyroid 8. History of thrombocytosis, currently on Hydrea, follows outpatient with Dr. Mitchell Plan: 1. We will continue to drain her right sided Pleurx catheter daily until she is discharged to the extended care facility. Once she is discharged, at the [facility] they can drain the Pleurx catheter 2-3 times per week and as needed per the patient's symptoms. Discharge instructions for her Pleurx catheter have been placed in the discharge plan. 2. Medical management of other comorbidities per primary care, oncology 3. Encourage incentive spirometry use 10 times every hour while awake. Wean O2 as tolerated 4. Encourage continued smoking cessation 5. Pain control per current when necessary regimen. 6. More recommendations to follow based on patient's clinical course. Time with Patient: Greater than 30
--- NOTE | 2021-03-22 10:26 | P.DS ---
Providers Date of admission: 03/15/21 14:35 Expected date of discharge: 03/22/21 Attending physician: Meño Patel Consults: 03/15/21 14:35 Consult Physician Routine Consulting Provider: Philip Islas Consult Reason/Comments: Pulmonary embolism, pleural effusion Do you want consulting provider notified?: Yes 03/16/21 10:21 Consult Physician Routine Consulting Provider: Maurizio Flowers Consult Reason/Comments: anticoag recommendations, PE Do you want consulting provider notified?: Yes 03/16/21 13:20 Consult Physician Routine Consulting Provider: Devan Rangel Consult Reason/Comments: malignant recurrent right pleural effusion, possible Pleurix Do you want consulting provider notified?: Yes Primary care physician: Uriel PerezPerry [facility] Course: History of present illness: 81-year-old female patient of Dr. Yarbrough with past medical history of thrombocytosis followed Dr. Mitchell the past, history of hyperlipidemia hypertension, chronic back pain, GERD, was hospitalized recentlyfor worsening dyspnea shortness of breath found to have large pleural effusion patient subsequently was diagnosed with adenocarcinoma of the lung. Patient has been seen oncology since then. She presented to the emergency department today at [facility] with worsening dyspnea and shortness of breath for the last 3-4 days with worsening wheezes her symptom has been very severe with minimum exertion been severely symptomatic today patient called 911 and ended up coming to [facility] department by EMS was seen and evaluated with her testing including d-dimer was very high patient ended up going for CTA showed multi embolism of the lung. Patient also still showing lung mass. Pleural effusion on the right side as well. Was started on heparin drip consult pulmonary patient seen regularly and admit patient to the hospital for the above problem. From her last admission last time patient had severe shortness of breath was evaluated for pulmonary embolism which was negative but found to have large sided pleural effusion on the right side with negative Doppler the time as well. Patient had thoracentesis of the time came back apparently with malignant pleural effusion. Since then patient was diagnosed with adenocarcinoma. Also patient is known to have history of chronic leukocytosis and thrombocytosis has been seen oncology been treated with hydroxyurea. 03/16: Patient is on 3 L nasal cannula with pulse ox of 97% she is been afebrile, heart rate in the 60s and 70s, blood pressure 127/61. Patient states her breathing status is stable as long as she is sitting. She is complaining of back pain for which Tylenol and Stockbridge will be added. She is requesting to be a DO NOT RESUSCITATE. Ultrasound of the bilateral lower extremity is positive for DVT bilaterally of the popliteal proximal calf veins. Consults in place for pulmonary medicine and oncology consult added. Patient is currently on heparin drip. 03/17: Patient remains afebrile, heart rate 70, blood pressure 119/58, pulse ox 97% on 3 L nasal cannula. Repeat blood work reveals WBC 12.4, hemoglobin 10.7, platelet count 259. Electrolytes normal, BUN 35 creatinine 1. Blood sugar 119. Patient is found to have a large hematoma on the left hip area. Sisters been asked to contact oncology with recommendations for anticoagulation at this point. She is currently on heparin drip. Bone scan revealed vertebral compression fractures in the thoracic spine may be due to osteoporotic change. No associated soft tissue mass on the CT. MRI may be of benefit. Correlate for osteoporotic compression fracture having developed after prior CAT scan done on 02/24/2021. CAT scan of the abdomen and pelvis revealed no suspicious mass or adenopathy to suggest metastatic disease. There is a 6.7 cm upper lateral left thigh heterogeneous fluid collection or intramuscular hematoma. CAT scan of the brain revealed no suspicious enhancing masses to suggest metastatic disease to the brain. Repeat chest x-ray reveals no significant interval change. Right pleural effusion and associated atelectasis, correlate for possible pneumonia. Patient is seen and followed by oncology as well as consult in place with cardiothoracic surgery planning for Pleurx catheter for recurrent right-sided pleural effusion. 03/18: Patient underwent IVC filter yesterday with Dr. Bennett. Oncology is planning for oral anticoagulation in the next few weeks/months if the patient does not exhibit any signs or symptoms of bleeding or unusual bruising with anticoagulations, she can referred back to vascular for removal of the filter. Pleurx catheter scheduled for Monday with cardiothoracic team. Hemoglobin has been stable at 10.2. WBC 11. Blood culture no growth at 48 hours. Patient has been afebrile, heart rate 96, blood pressure 161/63, pulse ox 91% on 4 L nasal cannula. Concerns from the patient. 03/19: Patient underwent right sided Pleurx catheter placement with Dr. Ruth. Patient complains of pain at the site but no new complaints otherwise. Pneumothorax on the right measuring approximately 30%. She has been afebrile, heart rate 96, blood pressure 147/74, pulse ox 91% on 4 L nasal cannula. ekg monitor tech is sinus rhythm. Repeat blood work will be ordered for tomorrow. Blood cultures no growth at 72 hours. Discharge plan is [facility] on Monday. 03/20 Patient had Pleurx catheter -related hydrothorax, patient is comfortable, no nausea no vomiting, still with decreased appetite, O2 at 5 L nasal cannula, and has multiple comorbidities, no current IV medications infusing, we'll going to hold off any midline iciness is might need this for future infusions, changed to oral admission supplementation, 400 oxide admission, twice a day for 14 shakes, for supplementation. Anticipate discharge, Mondaylittle hocking 03/21: Patient is sitting up in a geriatric chair, Pleurx catheter draining today at 300 mL, yesterday they took out 500 mL, she feels comfortable otherw ise, still on O2 at 4-5 L nasal cannula, no chest pain no shortness of breath, patient is anticipated for [facility] discharge in the next 24 hours, per their policy, they want to have a repeat covid prior to admission to [facility] 03/22: Patient denies any significant chest pain or shortness of breath. Pleurx catheter was drained of 200 ML's of thin serosanguineous fluid this morning. Patient's pulse ox is 96% on 5 L nasal cannula. Incentive spirometry is reaching 750-1000 ML's. She has been afebrile, heart rate in the 70s to 90s, blood pressure 93/50. Patient has been seen and followed by cardiothoracic surgery, pulmonary medicine. Patient has also been followed by oncology with plan for outpatient follow-up with no immediate plan for chemotherapy until after discharge from rehab. Oncology will also make a decision when patient can start eliquis. Patient will be discharged to [facility] today in stable condition. DISCHARGE DIAGNOSES 1 acute respiratory failure: Combination of acute multi-pulmonary embolism with bilateral lower extremity DVT, COPD exacerbation, lung cancer and recurrent metastatic right-sided pleural effusion status post Pleurx catheter right side 03/19. 2 acute multi-pulmonary embolism and bilateral lower extremity DVT. 3 adenocarcinoma of the lung: Newly diagnosed 4 recurrent large sided pleural effusion on the right side. 5. Acute left hip hematoma status post IVC filter. 6. chronic obstructive pulmonary disease. 7. hypertension: 8 thrombocytosis 9 hypothyroidism 10 chronic history of peripheral neuropathy 11 severe GERD 12 recurrent depression: Has been on citalopram 10 mg daily. 13 Protein calorie nutrition, with malignancy related anorexia Discharge Plan Subacute rehab at [facility] Greater than 35 minutes was utilized and coordinating patient's discharge. Impression and plan of care have been directed as dictated by the signing physician. Tish Baldwin nurse practitioner acting as scribe for signing physician. Patient Condition at Discharge: Stable Plan - Discharge Summary New Discharge Prescriptions: New guaiFENesin [Mucinex] 600 mg PO Q12HR PRN tablet PRN Reason: Cough HYDROcodone/APAP 7.5-325MG [Stockbridge 7.5-325] 1 each PO Q4HR PRN #18 tab PRN Reason: Pain Sennosides-Docusate Sodium [Senokot-S] 2 each PO BID tab Acetaminophen Tab [Tylenol] 650 mg PO Q6HR PRN tab PRN Reason: Fever and/ or Mild Pain Ipratropium-Albuterol Nebulize [Duoneb 0.5 mg-3 mg/3 ml Soln] 3 ml INHALATION RT-QID ml Magnesium Oxide [Mag-Ox] 400 mg PO BID tab ALPRAZolam [Xanax] 0.5 mg PO HS #3 tab Continue Levothyroxine Sodium [Synthroid] 50 mcg PO DAILY Omeprazole 20 mg PO HS Vitamin B Complex 1 cap PO DAILY Estradiol 1 mg PO DAILY Metoprolol Succinate [Toprol XL] 25 mg PO DAILY Metoprolol Succinate [Toprol XL] 50 mg PO HS Hydroxyurea 500 mg PO SUMOTU Hydroxyurea 500 mg PO HS Aspirin EC [Ecotrin] 325 mg PO DAILY Cetirizine HCl [Zyrtec] 10 mg PO DAILY Escitalopram [Lexapro] 10 mg PO DAILY Multivit-Min/Iron/Folic/Lutein [Centrum Silver Women Tablet] 1 tab PO DAILY Ergocalciferol [Vitamin D2 (1250 Mcg = 03449 Iu)] 1,250 mcg PO TU Gabapentin [Neurontin] 100 mg PO HS #3 cap Discontinued ALPRAZolam [Xanax] 1 mg PO HS Discharge Medication List Levothyroxine Sodium [Synthroid] 50 mcg PO DAILY 04/08/14 [History] Omeprazole 20 mg PO HS 04/08/14 [History] Vitamin B Complex 1 cap PO DAILY 04/13/15 [History] Estradiol 1 mg PO DAILY 04/21/15 [History] Hydroxyurea 500 mg PO HS 03/18/20 [History] Hydroxyurea 500 mg PO SUMOTU 03/18/20 [History] Metoprolol Succinate [Toprol XL] 25 mg PO DAILY 03/18/20 [History] Metoprolol Succinate [Toprol XL] 50 mg PO HS 03/18/20 [History] Escitalopram [Lexapro] 10 mg PO DAILY 02/24/21 [History] Multivit-Min/Iron/Folic/Lutein [Centrum Silver Women Tablet] 1 tab PO DAILY 02/24/21 [History] Aspirin EC [Ecotrin] 325 mg PO DAILY 03/15/21 [History] Cetirizine HCl [Zyrtec] 10 mg PO DAILY 03/15/21 [History] Ergocalciferol [Vitamin D2 (1250 Mcg = 88481 Iu)] 1,250 mcg PO TU 03/15/21 [History] ALPRAZolam [Xanax] 0.5 mg PO HS #3 tab 03/22/21 [Rx] Acetaminophen Tab [Tylenol] 650 mg PO Q6HR PRN tab 03/22/21 [Rx] Gabapentin [Neurontin] 100 mg PO HS #3 cap 03/22/21 [Rx] HYDROcodone/APAP 7.5-325MG [Stockbridge 7.5-325] 1 each PO Q4HR PRN #18 tab 03/22/21 [Rx] Ipratropium-Albuterol Nebulize [Duoneb 0.5 mg-3 mg/3 ml Soln] 3 ml INHALATION RT-QID ml 03/22/21 [Rx] Magnesium Oxide [Mag-Ox] 400 mg PO BID tab 03/22/21 [Rx] Sennosides-Docusate Sodium [Senokot-S] 2 each PO BID tab 03/22/21 [Rx] guaiFENesin [Mucinex] 600 mg PO Q12HR PRN tablet 03/22/21 [Rx] Follow up Appointment(s)/Referral(s): Uriel Yarbrough DO [Primary Care Provider] - 1 Week (AFTER DISCHARGE FROM [facility]) Brii Gonzáles MD [STAFF PHYSICIAN] - 04/05/21 12:00 pm Activity/Diet/Wound Care/Special Instructions: Copay for Lexus will be $8 after the $92 deductible is met. DISCHARGE INSTRUCTIONS: 1. The patient is being discharged to an extended care facility, they will obtain new bottles. 2. May shower after 24 hours of the catheter insertion, no baths/hot tubs. 3. Do not drain more than 1 L or 1000 mL from the Pleurx catheter in 24 hours. 4. NEW drainage bottles needed with each drainage. 5. Drainage frequency dictated by the patient's symptoms, may be every day, every other day, weekly or as needed if the patient is symptomatic. 6. Please notify the nurse practitioner or surgeons office if temperature is greater than 101F, excessive pain at insertion site, drainage consistency changes to cloudy or smells bad, catheter falls out. 7. Contact surgery office with weekly drainage amount. May fax the amounts. 8. Once drainage is less than 50 mL 3 times in a row, notify the surgery office for possible removal. Surgery office phone number is [phone], fax number is [phone] The Nurse practitioner numbers: Magda [phone], Amos [phone]. Discharge Disposition: TRANSFER TO SNF/ECF
[2021-03-22 11:46] VITALS: BP 103/65; TEMP 98.2
--- NOTE | 2021-03-22 13:09 | P.PN ---
Subjective Progress Note Date: 03/22/21 Principal diagnosis: Pulmonary embolism. Recurrent malignant pleural effusion, shortness of breath, back pain. In follow-up today patient states she is moving around better, less lt flank pain, current analgesic regimen adequate. She had BM yesterday. Pleurex drain in place. She continues on the Hydrea without side effect complaints. Her left thigh hematoma is persistent, not progressive, no other bleeding Objective - Vital Signs Vital signs: Vital Signs Temp 98.2 F 03/22/21 11:45 Pulse 83 03/22/21 11:45 Resp 19 03/22/21 11:45 BP 103/65 03/22/21 11:45 Pulse Ox 97 03/22/21 11:45 Intake & Output 03/21/21 03/22/21 03/22/21 18:59 06:59 18:59 Intake Total 360 240 180 Output Total 2 1 Balance 358 240 179 Weight 81.5 kg Intake: Oral 360 240 180 Output: Stool 2 1 Other: Voiding Method Bedside Commode Bedside Commode Bedside Commode Bedpan Bedpan Bedpan Diaper Diaper Diaper # Voids 1 1 # Bowel Movements 1 2 - Constitutional General appearance: Present: average body habitus, cooperative, no acute distress - EENT Eyes: Present: anicteric sclerae, EOMI ENT: Present: hearing grossly normal - Respiratory Details: mild SOB on exertion - Integumentary Integumentary Comment(s): Large lt thigh bruising is healing - Neurologic Neurologic: Present: CNII-XII intact - Musculoskeletal Musculoskeletal: Present: generalized weakness, strength equal bilaterally - Psychiatric Psychiatric: Present: A&O x's 3, appropriate affect, intact judgment & insight - Labs CBC & Chem 7: 03/20/21 07:10 03/20/21 07:10 Labs: Microbiology - Last 24 Hours (Table) 03/15/21 10:15 Blood Culture - Final Blood No Growth after 144 hours 03/15/21 10:30 Blood Culture - Final Blood No Growth after 144 hours Assessment and Plan (1) Primary lung adenocarcinoma Narrative/Plan: Staging shows no other sites of disease, only pleural fluid is positive. Specimen has been sent for somatic molecular testing. Treatment plans will be developed in the next 7-10 days. Patient will meet with Dr. Gonzáles to discuss options and to decide how she would like to proceed. Pleurx drain placed for mgmt of recurrent malignant pleural effusion. Current Visit: Yes Status: Acute Priority: High Code(s): C34.90 - MALIGNANT NEOPLASM OF UNSP PART OF UNSP BRONCHUS OR LUNG SNOMED Code(s): 725194230 (2) Pulmonary embolism Narrative/Plan: 2/2 sudden onset, no documented trauma or injection, large hematoma of the lt thigh while on anticoagulation. Holding anticoagulation for now. Vascular did place a retrievable filter so if pt can be safely placed on anticoagulation in the near future it can be removed. Hemoglobin did have a modest drop. Cont to monitor but pt does not have s/s of ongoing bleeding apparent on H&P Current Visit: Yes Status: Acute Priority: High Code(s): I26.99 - OTHER PULMONARY EMBOLISM WITHOUT ACUTE COR PULMONALE SNOMED Code(s): 46642032 (3) Pain, cancer Narrative/Plan: Patient cont to report adequate pain control with the increase in dose and frequency of Counselor. Medications for prevention of narcotic-induced constipation have been ordered. Current Visit: Yes Status: Acute Priority: High Code(s): G89.3 - NEOPLASM RELATED PAIN (ACUTE) (CHRONIC) SNOMED Code(s): 77422669292080 Plan: Patient is going to rehab. Currently pending somatic molecular testing for p ossible mutations that have targeted treatment agents, these results take up to 2 weeks to return. Treatment will not be initiated until patient has been discharged from inpatient rehab. F/U with Dr. Gonzáles after DC from rehab
[2021-03-22 14:32] VITALS: PULSE 73; RESP 20
== END 2021-03-22 15:30 | DRG 175 ==
LOC: EC 10:18 → 3SCARD 14:35
PROVIDERS: ADMIT Internal Medicine Geriatric Medicine; ATTEND Internal Medicine Geriatric Medicine
PROC: B51B1ZZ Fluoroscopy of Right Lower Extremity Veins using Low Osmolar Contrast (ICD-10-PCS; 2021-03-17)
PROC: 06H03DZ Insertion of Intraluminal Device into Inferior Vena Cava, Percutaneous Approach (ICD-10-PCS; principal; 2021-03-17 17:00)
PROC: 0W9930Z Drainage of Right Pleural Cavity with Drainage Device, Percutaneous Approach (ICD-10-PCS; 2021-03-19)
DX: I26.99 Other pulmonary embolism without acute cor pulmonale (principal); J96.21 Acute and chronic respiratory failure with hypoxia; C34.90 Malignant neoplasm of unspecified part of unspecified bronchus or lung; C79.9 Secondary malignant neoplasm of unspecified site; C94.6 Myelodysplastic disease, not elsewhere classified; F33.9 Major depressive disorder, recurrent, unspecified; I82.433 Acute embolism and thrombosis of popliteal vein, bilateral; J44.1 Chronic obstructive pulmonary disease with (acute) exacerbation; J91.0 Malignant pleural effusion; J93.9 Pneumothorax, unspecified; J98.11 Atelectasis; M80.08XA Age-related osteoporosis with current pathological fracture, vertebra(e), initial encounter for fracture; D47.3 Essential (hemorrhagic) thrombocythemia; D64.9 Anemia, unspecified; D75.839 Thrombocytosis, unspecified; E03.9 Hypothyroidism, unspecified; E78.5 Hyperlipidemia, unspecified; F17.200 Nicotine dependence, unspecified, uncomplicated; F41.9 Anxiety disorder, unspecified; G62.9 Polyneuropathy, unspecified; G89.29 Other chronic pain; Z20.822 Contact with and (suspected) exposure to COVID-19; I50.9 Heart failure, unspecified; I11.0 Hypertensive heart disease with heart failure; K21.9 Gastro-esophageal reflux disease without esophagitis; K59.00 Constipation, unspecified; S30.0XXA Contusion of lower back and pelvis, initial encounter; S70.02XA Contusion of left hip, initial encounter; S70.12XA Contusion of left thigh, initial encounter; Z66 Do not resuscitate; Z79.82 Long term (current) use of aspirin; Z79.890 Hormone replacement therapy; Z79.899 Other long term (current) drug therapy; Z82.3 Family history of stroke; Z90.710 Acquired absence of both cervix and uterus; Z99.81 Dependence on supplemental oxygen; Z88.2 Allergy status to sulfonamides; Z88.6 Allergy status to analgesic agent; R63.0 Anorexia; Z68.30 Body mass index [BMI] 30.0-30.9, adult
CPT/HCPCS: 36415; 37191; 70460; 71045; 71046; 71275; 73502; 74177; 78306; 80048; 80053; 83605; 83735; 83880; 84484; 85025; 85027; 85379; 85610; 85730; 87040; 87635; 93005; 93970; 94640; 94760; 96365; 96366; 96367; 96375; 99291